=== PATIENT | male | born 1945 | race Caucasian/White ===

== ENCOUNTER 2017-02-24 08:09 | Outpatient (RCR) | payer MEDICARE ==
[~2017-02-24 08:09] MED LIST: ALLP300T PO; ASP81TEC PO; CA C1TAB26 PO; HYDR-3583 PO; LISI1TAB10 PO; LVT.112T PO; NIAC1CAP PO; PRAV80TA2 PO; RANI300T4 PO
[2017-02-28] MEDS ORDERED: MELO7.5T46 PO (13:24)
[2017-02-28] MEDS ORDERED: AMLO5TAB2 PO ×2 (13:24)
[2017-02-28] MEDS ORDERED: LISI40TA PO ×2 (13:24)
[2017-02-28] MEDS ORDERED: LEVO100T7 PO ×2 (13:24)
[2017-02-28] MEDS ORDERED: FEBU80TA PO ×2 (13:56)
[2017-03-09] MEDS ORDERED: OXYC-471 PO ×2 (19:09)
[2017-03-09] MEDS ORDERED: OXC10TCR PO ×2 (19:09)
--- NOTE | 2017-03-10 16:42 | OPERATIVE REPORT ---
DATE OF SERVICE: 03/01/2017 SURGEON: Dr. Brush. COLD FOOD PACKER: SAMUEL Graff. This is a medically necessary procedure. Assistance is necessary for retraction of vital neurovascular structures. Without an middle school assistant principal, the procedure would not be possible. PREOPERATIVE DIAGNOSIS: Pathologic left femoral shaft fracture. POSTOPERATIVE DIAGNOSIS: Pathological left femoral shaft fracture. PROCEDURE: Left intramedullary nail placement with biopsy. COMPLICATIONS: None. SPECIMENS SENT: Reamings from left femur. ANESTHESIA: General endotracheal tube anesthesia. HISTORY OF PRESENT ILLNESS: The patient is a very pleasant 72-year-old gentleman with a distant history of throat cancer and other diagnoses including hypertension and history of myocardial infarction. He presented with left femur deformity, pain and instability after he passively lifted his leg to get out of the vehicle and felt a pop. Imaging in [facility] demonstrated a transverse left femoral shaft fracture with lucencies around that fracture suggesting pathologic lesion. Subsequent workup included a CT scan of the femur and CT scan of the chest, abdomen and pelvis. These demonstrated lymphadenopathy in the mediastinum, as well as an isolated pathologic lesion in the femur with no other compromise of skeleton. In addition, bone scan demonstrated no other abnormal uptake. Options were discussed with the patient who did wish to proceed with surgical stabilization. It was discussed that biopsy would be obtained in attempt to diagnose the source of the tumor. He understood the risks and benefits. OPERATION: The patient was identified by name on wrist band in the preoperative holding area. The operative site was signed and consent was signed. SCDs were placed. Antibiotics were started in the operating theater with placement of general endotracheal anesthesia and transferred to the operating room table. His unaffected right lower extremity was abducted and externally rotated. His affected left lower extremity was placed in traction and slightly adducted. It was then prepped and draped in the usual sterile fashion. A formal timeout was conducted. We were able to get a good AP and lateral of the left femur. At this point, incision was made just proximal to the greater trochanter on the left side. A guidewire was then passed into the proximal femur via the piriformis fossa. I then reamed the outer cortex. I then placed a gavin into the femur and passed it down through the supracondylar line just above the knee. I measured the appropriate length of the nail. I reamed for that nail and I saved those reamings to sent to pathology in the attempt to diagnose the tumor. Once the ream was finished, I chose the appropriate size titanium nail and I passed it through the proximal fragment and into the distal fragment imaging with AP and lateral x-ray to ensure that I was in the appropriate location. Once the nail was in place, I did drill the outer cortex and placed a guidewire into the subcondylar bone of the left femoral head. I measured the appropriate length for the helical blade and placed the helical blade. I locked it with the nail to prevent back out. At this point I removed the guide apparatus and turned my attention to the distal lock where I used perfect sitka fluoroscopy technique to place a screw through the medial and lateral cortex of the femur and through the nail. Final AP and lateral x-ray demonstrated appropriate positioning of all the hardware. At this point, I thoroughly irrigated the wound and I closed those wounds with 0 Vicryl, followed by 2-0 Vicryl, followed by dmitriy for skin. I applied dressings and took the patient in the supine position to the PACU where he awoke without incident. He tolerated the procedure well. The plan at this time is to followup on the pathology. Medicine will be consulted, as well as oncology for further diagnosis and treatment. He will be placed on blood thinners for DVT prophylaxis. He will be weightbearing as tolerated on the left lower extremity. Job ID: [id number] DocumentID: [id number] Dictated Date: 03/10/2017 06:25:09 Dopster Date: 03/10/2017 16:42:00 Dictated By: FARHEEN BRUSH DO
== END 2017-03-08 15:32 | disposition home or self-care (01) ==
PROVIDERS: ATTEND Internal Medicine
DX: M54.16 Radiculopathy, lumbar region (principal)

== ENCOUNTER 2017-03-03 11:32 | Inpatient (IN) | payer MEDICARE ==
[~2017-03-03] VITALS: Ht 157.5 cm; Wt 76.7 kg
[~2017-03-03 11:32] MED LIST changes: +AMLO5TAB2 PO; +FEBU80TA PO; +LEVO100T7 PO; +LISI40TA PO; +MELO7.5T46 PO
[2017-03-03 13:00] VITALS: BP 99/62
[2017-03-03] MEDS ORDERED: HYDROmorphone (DILAUDID) 2 MG/ML VIAL IV PRN (14:00)
[2017-03-03] MEDS ORDERED: ONDANSETRON 4 MG/2 ML (SDV) Z0FRAN IV PRN (14:00)
[2017-03-03] MEDS ORDERED: CATHETER FLUSH 10 ML SYR IV PRN (14:00)
--- NOTE | 2017-03-03 14:15 | Physical Therapy Evaluation ---
PT Evaluation-General Medical Diagnosis Admission Date Mar 03, 2017 at 14:03 Medical Diagnosis: left femur fx Onset Date: Feb 28, 2017 Therapy Diagnosis Therapy Diagnosis: impaired mobility, ROM, strength, endurance Height/Weight Height (Feet): 5 Height (Inches): 2.00 Weight (Pounds): 167 Weight (Ounces): 0.0 Precautions Precautions/Isolations: Fall Prevention, Standard Precautions, Pressure Ulcer Weight Bear Status Weight Bearing Restriction: Weight Bearing/Tolerated Location Restriction: L LE Referral Physician: Lalo Reason for Referral: Evaluation/Treatment Medical History Pertinent Medical History: CAD, COPD, HTN, Hypothroidism, [place] Additional Medical History throat CA approx 12 yrs ago Current History Pathological fracture left hip. Post repair TFN; WBAT. Reviewed History: Yes Social History Home: Single Level Current Living Status: Other Family Entry Into Home: Ramp PT Steps Inside Home: 2 Patient lives with a sister and another roommate, he states he has 2 steps to get into his bedroom. Prior/Core FIM Prior Level of Function Functional [place] Measure 0=Not Assessed/NA 4=Minimal Assistance 1=Total Assistance 5=Supervision or Setup 2=Maximal Assistance 6=Modified [place] 3=Moderate Assistance 7=Complete [place] Bed Mobility: 6 Transfers (B,C,W/C) (FIM): 6 Gait: 6 Patient was using a standard walker to ambulate before going to the hospital. PT Evaluation-Current Subjective Patient sitting EOB pre tx, agrees to PT, will be taking him down to the rehab floor. Patient states he has 9/10 pain, nurse got him a pain pill. Pt/Family Goals to be independent at home Objective Patient Orientation: Normal For Age Attachments: Galaviz Catheter ROM/Strength ROM Lower Extremities right lower extremity WNL, left leg not tested due to recent surgery Strenght Lower Extremities NT due to recent surgery Integumentary/Posture Bladder Incontinence: Galaviz Cath Neuromuscular (Tone, Coordination, Reflexes) WNL Sensory Vision: Wears Glasses Hearing: Functional Sensation Right Lower Extremit: Intact Sensation Left Lower Extremity: Intact Sensation Lower Extremities Patient denies any numbness or tingling in left leg. Transfers Functional [place] Measure 0=Not Assessed/NA 4=Minimal Assistance 1=Total Assistance 5=Supervision or Setup 2=Maximal Assistance 6=Modified [place] 3=Moderate Assistance 7=Complete IndependenceIRFPAI Quality Coding Scale 6 Independent with activity with or without an assistive device 5 Patient requires set up or clean up by helper. Patient completes activity by themselves 4 Supervision or touching assist (CGA). [place] provide cues , steadying assist 3 The helper provides less than half the effort to complete the activity 2 The helper provides more than half the effort to complete the activity 1 Dependent. The helper does all the effort to complete an activity 7 Patient refused to complete or attempt activity 9 The patient did not perform the activity before the current illness or injury 88 Not attempted due to Medical conditions or safety concerns Transfers (B, C, W/C) (FIM): 4 Scootin Rollin Roll Left to Right (QC): 4 Supine to/from Sit: 4 Sit to/from Stand: 4 Sit to Lying (QC): 3 Lying to Sitting/Side of Bed(Q: 3 Sit to Stand (QC): 4 Car Transfer (QC): 88 Bed mobility SBA except for supine <-> sit which is min assist, transfers with CGA. Cues for safety and hand placement. Gait Does the Patient Walk?: Yes Mode of Locomotion: Walk Anticipated Mode of Locomotion: Walk Gait (FIM): 4 Walk 10 feet (QC): 4 Walk 50 ft with 2 Turns(QC): 4 Walk 150 ft (QC): 4 Walking 10ft/uneven surface-QC: 4 Distance: 200', 150' Gait Level of Assist: 4 Gait Persons Needed: 1 Gait Assistive Device: FWW Comments/Gait Description Patient ambulates slowly, antalgic, decreased knee flexion on the left and decreased stance time. Patient can ambulate 150-200' with a rolling walker with CGA including 50' with at least 2 turns of 90 degrees and 10' over an uneven surface. He is bearing some weight through his left leg now. Wheelchair Training Does the Pt Use a Wheelchair?: No Stairs Stairs (FIM): 2 #of Steps: 4 Level of Assist: 4 1 Step (curb) (QC): 4 4 Steps (QC): 4 12 Steps (QC): 88 Patient went up and down 4 steps using 2 handrails with CGA and cues for safety and foot placement. Balance Sitting Static: Normal Sitting Dynamic: Normal Standing Static: Good Standing Dynamic: Good Treatment supine exercises x 20 (AP, QS, GS, hip abd/add, SAQ, SLR), seated LAQ alternating for 5 min, NuStep for 15 min level 1 Assessment/Needs Patient has impaired mobility, strength, endurance, and ROM post left hip surgery. Patient did have less pain after treatment and with the pain meds he got it was 5/10 at the end of tx. Rehab Potential: Fair PT Short Term Goals Short Term Goals Time Frame: Mar 10, 2017 Transfers (B,C,W/C) (FIM): 5 Gait (FIM): 5 Gait Distance Comment: 250' Gait Level of Assist: 5 Gait Assistive Device: FWW PT Snf Goals Automotive Parts Manager Goals PT Automotive Parts Manager Goals Time Frame: March 24, 2017 Transfers (B,C,W/C) (FIM): 6 Sit to Lying (QC): 6 Lying-Sitting on Side/Bed(QC): 6 Sit to Stand (QC): 6 Rollin Roll Left to Right (QC): 6 Car Transfer (QC): 4 Gait (FIM): 6 Distance: 300' Walk 10 feet (QC): 6 Walk 10ft-Uneven Surface(QC): 6 Walk 50ft with 2 Turns (QC): 6 Walk 150 ft (QC): 6 Gait Level of Assist: 6 Gait Assistive Device: FWW Stairs (FIM): 5 # of Steps: 12 1 Step (curb) (QC): 4 4 Steps (QC): 4 12 Steps (QC): 4 Stairs Level Of Assist: 5 Picking up an Object (QC): 88 PT Plan Problem List Problem List: Activity Tolerance, Functional Strength, Safety, Balance, Gait, Transfer, Bed Mobility, ROM Treatment/Plan Treatment Plan: Continue Plan of Care Treatment Plan: Bed Mobility, Education, Functional Activity David, Functional Strength, Group Therapy, Gait, Safety, Therapeutic Exercise, Transfers Treatment Duration: March 24, 2017 # of days/week 5-6 Visits Per Week: 10-11 Minutes/Day (M-F): 60-90 Minutes/Day (Sat/Trent): 15-30 Pt/Family Agrees w/Plan: Yes Safety Risks/Education Patient Education: Gait Training, Transfer Techniques, Steps, Correct Positioning, Safety Issues Teaching Recipient: Patient Teaching Methods: Demonstration, Discussion Response to Teaching: Reinforcement Needed Discharge Recommendations Plan Patient will perform bed mobility and transfer training, balance and endurance training, functional strengthening, gait training, stair training, and education , to improve functional mobility and independence at home. Therapy D/C Recommendations: Home w/ Family Support Equpiment Recommendations-D/C: Front Wheeled Walker, Shower Chair Time/GCodes Time In: 1230 Time Out: 1400 Total Billed Treatment Time: 90 Total Billed Treatment 1 visit EVM 15' EX 30 min GT 30 min FA 15 min LUMA HENDRIX PT Mar 03, 2017 14:15
--- NOTE | 2017-03-03 15:22 | Occupational Ther Daily Note ---
OT Current Status-Daily Note Subjective Pt alert, sitting EOB. Sister present in room. Pt agreed to therapy. No c/o pain. Mental Status/Objective Patient Orientation: Person, Place, Time, Situation Functional [place] Measure 0=Not Assessed/NA 4=Minimal Assistance 1=Total Assistance 5=Supervision or Setup 2=Maximal Assistance 6=Modified [place] 3=Moderate Assistance 7=Complete [place] Attachments: IV ADL-Treatment Functional [place] Measure 0=Not Assessed/NA 4=Minimal Assistance 1=Total Assistance 5=Supervision or Setup 2=Maximal Assistance 6=Modified [place] 3=Moderate Assistance 7=Complete IndependenceIRFPAI Quality Coding Scale 6 Independent with activity with or without an assistive device 5 Patient requires set up or clean up by helper. Patient completes activity by themselves 4 Supervision or touching assist (CGA). [place] provide cues , steadying assist 3 The helper provides less than half the effort to complete the activity 2 The helper provides more than half the effort to complete the activity 1 Dependent. The helper does all the effort to complete an activity 7 Patient refused to complete or attempt activity 9 The patient did not perform the activity before the current illness or injury 88 Not attempted due to Medical conditions or safety concerns Grooming (FIM): 5 (Pt standing at sink with FWW completed oral care with SBA. Pt's dentures are at his home so he cleansed his mouth.) Oral Hygiene (QC): 4 (Pt standing at sink with FWW completed oral care. Pt's dentures are at his home so he cleansed his mouth.) Bathing (FIM): 4 (Using shower bench, grabbar and hand held shower pt able to bathe self with min A. Pt unable to reach feet. Pt was able to bathe all other body parts.) Bathing Location: L Arm, R Arm, L Upper Leg, R Upper Leg, Chest, Abdomen, Buttocks, Perineal Area Shower/Bathe Self (QC): 4 (Using shower bench, grabbar and hand held shower pt able to bathe self with min A. Pt unable to reach feet. Pt was able to bathe all other body parts.) Upper Body (FIM): 5 (After set up, pt is able to complete upper body dressing.) Upper Body Dressing (QC): 4 (After set up, pt is able to complete upper body dressing.) Lower Body Dressing (FIM): 2 (After set up, pt unable to reach feet to don/ doff lower body. Pt is able to pull up pants and hike over hips with SBA.) Lower Body Dressing (QC): 2 (After set up, pt unable to reach feet to don/doff lower body. Pt is able to pull up pants and hike over hips with SBA.) On/Off Footwear (QC): 2 (Pt unable to don/doff footwear.) Transfers (B, C, W/C) (FIM): 4 (CGA for transfers using FWW.) Toilet/Commode Transfer (FIM): 4 (CGA for transfers using FWW and grabbars.) Toilet Transfer (QC): 4 (CGA for transfers using FWW) Shower Transfer(FIM): 4 (CGA for transfers using FWW, shower bench and grabbars.) Pt will required AE for lower body dressing. Pt was educated on using business instructor to don pants and sock aide to don socks. Pt demonstrated understanding of AE. Pt required mod A to lift LE into bed. After therapy, pt lying in bed with call light/phone in reach. All needs met in room. OT Short Term Goals Short Term Goals Transfers (B,C,W/C) (FIM): 5 1=Demonstrate adherence to instructed precautions during ADL tasks. 2=Patient will verbalize/demonstrate understanding of assistive devices/ modifications for ADL. 3=Patient will improve strength/tolerance for activity to enable patient to perform ADL's. OT Visual Effects Editor Goals Visual Effects Editor Goals 1=Demonstrate adherence to instructed precautions during ADL tasks. 2=Patient will verbalize/demonstrate understanding of assistive devices/ modifications for ADL. 3=Patient will improve strength/tolerance for activity to enable patient to perform ADL's. OT Education/Plan Discharge Recommendations Plan/Recommendations: Continue POC Treatment Plan/Plan of Care Patient would benefit from OT for education, treatment and training to promote independence in ADL's, mobility, safety and/or upper extremity function for ADL' s. Treatment Duration: March 24, 2017 Visits Per Week: 10-12 Rehab Potential: Fair Time/GCodes Start Time: 14:25 Stop Time: 15:15 Total Time Billed (hr/min): 50 Billed Treatment Time 1 visit-ADL 3 (50 min) CHRISTINA CASON Mar 03, 2017 15:22
--- NOTE | 2017-03-03 15:24 | Occupational Therapy Eval ---
OT Evaluation-General/PLF Medical Diagnosis Admission Date Mar 03, 2017 at 14:03 Medical Diagnosis: left femur fx Onset Date: Feb 28, 2017 Therapy Diagnosis Therapy Diagnosis: decreased self care Height/Weight Height (Feet): 5 Height (Inches): 2.00 Weight (Pounds): 167 Weight (Ounces): 0.0 Precautions Precautions/Isolations: Fall Prevention, Standard Precautions, Pressure Ulcer Weight Bear Status Weight Bearing Restriction: Weight Bearing/Tolerated Location Restriction: L LE Referral Physician: Lalo Medical History Pertinent Medical History: CAD, COPD, HTN, Hypothroidism, [place] Additional Medical History throat cancer Current History pathologic left femur fracture, now s/p TFN Social History Home: Single Level Current Living Status: Other Family Entry Into Home: Ramp Steps Inside Home: 2 (2 steps to bedroom) ADL-Prior Level of Function ADL PLOF Comments Pt reports being independent prior to admission. Had been using standard walker PRN for last few weeks secondary to left LE pain. 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 Pt reports 5/10 pain in left LE. Mental Status/Objective Patient Orientation: Person, Place, Time, Situation Current Glasses/Contacts: Yes Hearing Aids: No Dentures/Partials: No Hand Dominance: Right Upper Extremity ROM Grossly WFL Upper Extremity Coordination Intact Upper Extremity Sensation Intact per pt report Upper Extremity Strength Grossly WFL ADL-Treatment ADL-Current Pt supine to sit with minimal assistance for left LE. Pt participated in UE assessment while seated EOB with good balance. Pt required assist to don bilateral shoes. Sit to stand with CGA. Gait to restroom with FWW. Pt demonstrated ability to perform toilet transfer with minimal assistance using grab bars; skilled cues for safety. Return to EOB using FWW. Education provided regarding role of OT, rehab expectations, and plan of care. Pt states understanding and is in agreement. Care transferred to [facility] for continued treatment. Functional [place] Measure 0=Not Assessed/NA 4=Minimal Assistance 1=Total Assistance 5=Supervision or Setup 2=Maximal Assistance 6=Modified [place] 3=Moderate Assistance 7=Complete IndependenceIRFPAI Quality Coding Scale 6 Independent with activity with or without an assistive device 5 Patient requires set up or clean up by helper. Patient completes activity by themselves 4 Supervision or touching assist (CGA). [place] provide cues , steadying assist 3 The helper provides less than half the effort to complete the activity 2 The helper provides more than half the effort to complete the activity 1 Dependent. The helper does all the effort to complete an activity 7 Patient refused to complete or attempt activity 9 The patient did not perform the activity before the current illness or injury 88 Not attempted due to Medical conditions or safety concerns Toilet/Commode Transfer (FIM): 4 Toilet Transfer (QC): 3 Education OT Patient Education: Rehab process Teaching Recipient: Patient Teaching Methods: Discussion Response to Teaching: Verbalize Understanding OT Short Term Goals Short Term Goals Time Frame: Mar 10, 2017 Bathing(FIM): 5 Lower Body Dressing(FIM): 5 Toileting(FIM): 5 Toilet/Commode Transfer(FIM): 5 Additional Short Term Goals: 1-Demonstrate ADL Tasks, 2-Verbalize Understanding , 3-ImproveStrength/David 1=Demonstrate adherence to instructed precautions during ADL tasks. 2=Patient will verbalize/demonstrate understanding of assistive devices/ modifications for ADL. 3=Patient will improve strength/tolerance for activity to enable patient to perform ADL's. OT Retirement Goals Retirement Goals Time Frame: March 24, 2017 Eating (FIM): 6 Eating (QC): 6 Groomin Oral Hygiene (QC): 6 Bathing(FIM): 6 Shower/Bathe Self (QC): 6 Upper Body Dressing(FIM): 6 Upper Body Dressing (QC): 6 Lower Body Dressing(FIM): 6 Lower Body Dressing (QC): 6 On/Off Footwear (QC): 6 Toileting(FIM): 6 Toileting Hygiene (QC): 6 Toilet/Commode Transfer(FIM): 6 Toilet/Commode Transfer (QC): 6 Shower Transfer(FIM): 6 Additional Goals: 1-Demonstrate ADL Tasks, 2-Verbalize Understanding, 3- ImproveStrength/David 1=Demonstrate adherence to instructed precautions during ADL tasks. 2=Patient will verbalize/demonstrate understanding of assistive devices/ modifications for ADL. 3=Patient will improve strength/tolerance for activity to enable patient to perform ADL's. OT Education/Plan Problem List/Assessment Assessment: Decreased Activ Tolerance, Dependent Transfers, Impaired Self-Care Skills Pt admitted secondary to left femur fracture s/p TFN. Pt demonstrates decreased mobility and ADL functioning. Pt to benefit from skilled OT intervention for ADL training, transfers, strengthening, adaptive equipment education, and home safety education to maximize level of function and allow safe return home. Discharge Recommendations Plan/Recommendations: Continue POC Treatment Plan/Plan of Care Treatment,Training & Education: Yes Patient would benefit from OT for education, treatment and training to promote independence in ADL's, mobility, safety and/or upper extremity function for ADL' s. Plan of Care: ADL Retraining, Functional Mobility, Group Exercise/Act as Ind, UE Funct Exercise/Act Treatment Duration: March 24, 2017 # of days/week 5-6 Visits Per Week: 10-12 Minutes/Day (M-F): 60-90 Minutes/Day (Sat/Trent): PRN Agreement: Yes Rehab Potential: Fair Time/GCodes Start Time: 14:00 Stop Time: 14:25 Total Time Billed (hr/min): 25 Billed Treatment Time 1 visit, EVM(15minutes), ADL(10minutes) CHRIS MEADE OT Mar 03, 2017 15:24
--- NOTE | 2017-03-03 15:36 | ST Cognitive Linguistic Eval ---
Speech Evaluation-General Medical Diagnosis left femur fx Onset Date: Feb 28, 2017 Therapy Diagnosis Therapy Diagnosis: Cognitive Linguistic Skills WFL Precautions Precautions/Isolations: Fall Prevention, Standard Precautions, Pressure Ulcer Referral Referring Physician: Dr. Clem Bucio Reason for Referral: Evaluation/Treatment Cognitive Linguistic Screen Medical History Pertinent Medical History: CAD, COPD, HTN, Hypothroidism, [place] Reviewed History: Yes Social History Current Living Status: Other Family Speech PLF-Current Status Prior Level of Function The patient denied cognitive, speech, or language deficits prior to his recent admission. Subjective The patient was recently admitted to [facility] following a femur fracture. The patient greeted the clinician appropriately and agreed to participate in the cognitive evaluation on this date. Language Eval: Auditory Comprehends Simple Yes/No Ques: Functional Indent/Objects Multiple [place]: Functional Ident/Pics in Multiple [place]: Functional Follows 1-Step Commands: Functional Follows Complex Directions: Functional Follows General Conversations: Functional Language Eval: Verbal Language Completes Spontaneous Greeting: Functional Produces Auto, Serial Info: Functional Imitates Simple Words/Phrases: Functional Word Finding: Functional Requests Basic Needs: Functional States Basic Personal Info: Functional Expresses Complex Ideas: Functional Cognitive Patient Orientation The patient was oriented to self, location, month, date, and year (independently ). Objective Cognitive Domain Attention: WNL Memory: WNL Problem Solving: Functional Objective Impression The patient demonstrated cognitive linguistic skills within functional limits and appropriate for completion of ADL's. Communication/Social Cognition Comprehension: 5 Expression: 6 Social Interaction: 6 Problem Solvin Memory: 5 Speech Patient Assess Expression of Ideas/Wants: Expression (4) Understanding [place] Content: Understands (4) Brief Interview-Mental Status: Yes Repetition of Three Words: Three (3) Temporal Orientation: Year: Correct (3) Temporal Orientation: Month: Accurate within 5 days(2) Temporal Orientation: Day: Correct (1) Recall : Wear to say "Sock": Yes, no cue required (2) Recall : Color: Yes, no cue required (2) Recall : Bed: No, could not recall (0) Speech-Plan Treatment Plan Speech Therapy Treatment Plan: Discontinue ST Evaluation, only. Rehab Potential: Fair Safety Risks/Education Teaching Recipient: Patient, Significant Other Teaching Methods: Discussion Response to Teaching: Verbalize Understanding Education Topics Provided: Results, Recommendations, Plan of Care Time Speech Therapy Time In: 15:15 Speech Therapy Time Out: 15:30 Total Billed Time: 15 Billed Treatment Time 1, ADELIA MESSINA Mar 03, 2017 15:36
[2017-03-03 18:34] VITALS: BP 117/66
--- NOTE | 2017-03-03 20:21 | CONSULTATION REPORT ---
DATE OF SERVICE: 03/03/2017 MEDICAL ONCOLOGY CONSULTATION REFERRING/PRIMARY PHYSICIAN: Hamzah Vizcaino MD. IMPRESSION: 1. A 72-year-old male admitted to the hospital with pathologic fracture of the right femur, status post internal fixation. 2. History of squamous cell carcinoma of the larynx, T3 N0 M0 status post radiation therapy along with concurrent weekly cisplatin chemotherapy completing all treatment in 09/2005. 3. History of tobacco use in the past, quit 12 years ago. RECOMMENDATIONS: 1. I will await the final pathology report from the bone biopsies done at the time of internal fixation of the right femur. 2. If the primary site cannot be ascertained with the bone biopsy he may need repeat biopsy of right axillary lymph node either by CT-guided needle biopsy or an excisional biopsy. 3. Continue rehabilitation as you are doing and discharge home when stable. 4. If he needs staging PET CT scan we will schedule this on an outpatient basis in the next 2 to 3 weeks. 5. I would like to see him back at the cancer center after the final pathology report and the staging PET CT scan to review the results and discuss about treatment options. BRIEF HISTORY OF PRESENT ILLNESS: The patient is a 72-year-old male who suffered a fracture of his right femur while getting out of his car. He gives history or right lower extremity and right hip discomfort for the last 2 months. He denied any other trauma. He was brought to the emergency room and was noted to have a displaced fracture of the mid shaft of right femur which was felt to be pathologic. He was evaluated by orthopedic surgery and taken to surgery. He had internal fixation done and biopsies. The patient is recovering from the surgery and is starting rehabilitation today. He has remote history of squamous cell carcinoma of his larynx and had completed all treatment approximately 11 to 12 years ago with no evidence of disease until now. Medical oncology consultation was requested for further workup and recommendations. PAST MEDICAL HISTORY: Significant for hypertension for more than 25 years, history of IL in the past with an angioplasty in 1990, history of squamous cell carcinoma of the larynx treated with combined chemotherapy and radiation in 2004, hypothyroidism following this and on replacement. PAST SURGICAL HISTORY: Tracheostomy at the time of diagnosis of his laryngeal cancer, angioplasty in 1990 and recent right femur internal fixation. SOCIAL HISTORY: He is and lives with his sister in [place], [place]. He has a son who is in his early 40s now who lives close by. He has approximately [id number] history of tobacco use but quit 12 years ago at the time of diagnosis of his laryngeal cancer. No significant alcohol or other recreational drug use. Previously he has worked as a welder tool and die for 40 years and has exposure to the building gases and fumes. 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 FAMILY HISTORY: Significant for his mother who was diagnosed with acute leukemia while in her early 50s and a maternal aunt who was diagnosed with ovarian cancer while in her 40s. PHYSICAL EXAMINATION: GENERAL APPEARANCE: Today shows an elderly male, well-developed and well-nourished, awake and oriented. He is mild discomfort from the postoperative pain. VITAL SIGNS: His temperature was 96.6, pulse rate 81, respirations 16, blood pressure 99/62 with a pulse oximetry showing 99% saturation on 2 liters of oxygen by nasal cannula. 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 Extraocular muscles intact. Conjunctivae pink. Oral mucosa is slightly dry. NECK: Showed previous tracheostomy scar that is healed, post radiation surgical changes of the neck noted. Mild submental lymphedema which has been a chronic problem following his chemo and radiation. LYMPH NODES: The patient had an approximately 1.5 cm lymph node palpable in the right axilla and a smaller lymph node palpable in the left axilla also. CHEST AND LUNGS: Symmetrical. The lungs are fairly clear to auscultation without wheezes or rales. CARDIOVASCULAR: Regular in rate and rhythm. No murmurs or gallops heard. ABDOMEN: Soft and nontender with no hepatosplenomegaly or other masses palpable. EXTREMITIES: Showed right lower extremity with postoperative changes. No edema noted. NEUROLOGIC: Showed no focal motor deficits. Range of movement of right lower extremity is somewhat limited because of postoperative pain. LABORATORY DATA: CBC done yesterday showed WBC 6.3, hemoglobin 13.4, platelet count 229,000. Chemistry panel done yesterday showed normal electrolytes except potassium level of 5.5. BUN was 21 and creatinine 1.27 with GFR of 56 ml/minute. Total bilirubin was 1.1. AST 54. Albumin 2.9 with the rest of the liver function studies normal. IMAGING STUDIES: 1. CT scan of the chest, abdomen and pelvis done on 02/28/2017 showed 2 small pulmonary nodules in the right upper lobe measuring 10 mm and 8 mm respectively with the remainder of the lungs clear. No effusion noted. A vagus node was enlarged at 2.3 cm x 2.3 cm. AP window lymph node was mildly enlarged at 12 mm. A 2 cm x 3 cm AP window lymph node was noted. A 1.2 cm X 2.4 cm lymph node in the azygoesophageal recess noted. Bilateral axillary lymphadenopathy with the largest on the left side measuring 2.5 cm x 3.[address] scan of the abdomen and pelvis showed the liver, spleen and adrenals to be normal. A 2 cm low density lesion on the left kidney which was likely a cyst. A 1 cm low density lesion on the right kidney which is likely a cyst. Mesenteric and retroperitoneal lymphadenopathy with 2.2 x 2.7 lymph node paraaortic region at the level of the renal vessels. Numerous smaller lymph nodes in the paraaortic region. No ascites is noted. 2. Whole body bone scan done on 02/28/2017 showed abnormal uptake associated with a fracture on the left femur. Minimal increased activity in the intertrochanteric/subtrochanteric region on the right. 3. CT scan of the left lower extremity done on 02/28/2017 showed a lytic mid-shaft lesion of the left femur with associated pathologic fracture with displacement. 4. CT scan of the right lower extremity showed mild degenerative changes with no suspicious masses in the subtrochanteric region. Thank you for allowing me to participate in this patient's care. I will follow the patient with you. Job ID: [id number] DocumentID: [id number] Dictated Date: 03/03/2017 18:19:18 Windows Server Administrator Date: 03/03/2017 20:21:02 Dictated By: GIGI ORDOÑEZ MD [facility]
[2017-03-03] MEDS: FAMOTIDINE 20 MG (PEPCID) TABLET PO SCH (21:14)
[2017-03-03] MEDS: ATORVASTATIN 40 MG (LIPITOR) TABLET PO SCH (21:14)
[2017-03-03] MEDS: oxyCODONE/APAP 5/325MG (PERCOCET 5) TABLET PO PRN (21:14)
[2017-03-04 05:00] VITALS: BP 143/76
[2017-03-04] MEDS: LEVOTHYROXINE 100 MCG (LEVOTHROID) TAB PO SCH (05:58)
[2017-03-04] MEDS: oxyCODONE/APAP 5/325MG (PERCOCET 5) TABLET PO PRN ×2 (05:59→10:41)
[2017-03-04] MEDS ORDERED: ASPIRIN E.C. 81 MG (ECOTRIN) TAB PO SCH (09:00)
--- NOTE | 2017-03-04 09:02 | Physical Therapy Daily Note ---
PT Daily Note-Current Subjective Patient in bed pre tx, agrees to PT, has 5/10 pain in left leg. Appearance Patient in recliner post tx, has OT right after PT, has nurse call, phone, tray , all needs met. Mental Status Patient Orientation: Normal For Age Attachments: Galaviz Catheter Transfers Functional [place] Measure 0=Not Assessed/NA 4=Minimal Assistance 1=Total Assistance 5=Supervision or Setup 2=Maximal Assistance 6=Modified [place] 3=Moderate Assistance 7=Complete IndependenceIRFPAI Quality Coding Scale 6 Independent with activity with or without an assistive device 5 Patient requires set up or clean up by helper. Patient completes activity by themselves 4 Supervision or touching assist (CGA). [place] provide cues , steadying assist 3 The helper provides less than half the effort to complete the activity 2 The helper provides more than half the effort to complete the activity 1 Dependent. The helper does all the effort to complete an activity 7 Patient refused to complete or attempt activity 9 The patient did not perform the activity before the current illness or injury 88 Not attempted due to Medical conditions or safety concerns Transfers (B, C, W/C) (FIM): 4 Scootin Rollin Supine to/from Sit: 4 Sit to/from Stand: 5 Patient needs min assist getting left leg into and out of bed. Gait Training Gait (FIM): 5 Distance: 150'x2 Gait Level of Assist: 5 Gait Persons Needed: 1 Gait Assistive Device: FWW Slow, antalgic, patient tends to not bear weight on his left leg and will try to swing both legs through at the same time. Exercises Standing: Hip Abduction, Hamstring curls, Heel/toe raises, Marching, Mini squats Standing Reps: 20 step-ups x 10 each side NuStep Minutes: 15 NuStep Workload: 3 Treatments bed mobility and transfers, ambulation, functional strengthening Assessment Current Status: Fair Progress Improved transfers and ambulation. Still fatigues quickly and needs frequent rest breaks. PT Short Term Goals Short Term Goals Time Frame: Mar 10, 2017 Gait (FIM): 5 Gait Distance Comment: 250' Gait Level of Assist: 5 Gait Assistive Device: FWW PT Group Account Director Goals Skilled Nursing Goals PT Group Account Director Goals Time Frame: March 24, 2017 Transfers (B,C,W/C) (FIM): 6 Sit to Lying (QC): 6 Lying-Sitting on Side/Bed(QC): 6 Sit to Stand (QC): 6 Rollin Roll Left to Right (QC): 6 Car Transfer (QC): 4 Gait (FIM): 6 Distance: 300' Walk 10 feet (QC): 6 Walk 10ft-Uneven Surface(QC): 6 Walk 50ft with 2 Turns (QC): 6 Walk 150 ft (QC): 6 Gait Level of Assist: 6 Gait Assistive Device: FWW Stairs (FIM): 5 # of Steps: 12 1 Step (curb) (QC): 4 4 Steps (QC): 4 12 Steps (QC): 4 Stairs Level Of Assist: 5 Picking up an Object (QC): 88 PT Plan Problem List Problem List: Activity Tolerance, Functional Strength, Safety, Balance, Gait, Transfer, Bed Mobility, ROM Treatment/Plan Treatment Plan: Continue Plan of Care Treatment Plan: Bed Mobility, Education, Functional Activity David, Functional Strength, Group Therapy, Gait, Safety, Therapeutic Exercise, Transfers Treatment Duration: March 24, 2017 Visits Per Week: 10-11 Minutes/Day (M-F): 60-90 Minutes/Day (Sat/Trent): 15-30 Safety Risks/Education Patient Education: Gait Training, Transfer Techniques, Correct Positioning, Safety Issues Teaching Recipient: Patient Teaching Methods: Demonstration, Discussion Response to Teaching: Reinforcement Needed Time/GCodes Time In: 800 Time Out: 900 Total Billed Treatment Time: 60 Total Billed Treatment 1 visit EX 30 min GT 30 min LUMA HENDRIX PT Mar 04, 2017 09:02
[2017-03-04 09:06] VITALS: BP 99/61
[2017-03-04] MEDS: BISACODYL 5 MG (DULCOLAX) TABLET PO SCH (09:06)
[2017-03-04] MEDS: amLODIPine 5 MG (NORVASC) TAB PO SCH (09:17)
[2017-03-04] MEDS: lisINopril 20 MG (ZESTRIL) TAB PO SCH (09:17)
[2017-03-04] MEDS: ASPIRIN 81 MG CHEW (CHILDREN'S ASA) PO SCH (10:41)
--- NOTE | 2017-03-04 11:59 | Occupational Ther Daily Note ---
OT Current Status-Daily Note Subjective Pt sitting in chair, agrees to treatment. Pt reports 5/10 pain in left LE. Mental Status/Objective Functional [place] Measure 0=Not Assessed/NA 4=Minimal Assistance 1=Total Assistance 5=Supervision or Setup 2=Maximal Assistance 6=Modified [place] 3=Moderate Assistance 7=Complete [place] ADL-Treatment Pt doffed/donned shirt with set up. Reviewed use of adaptive equipment for LE dressing. Pt used dressing stick to doff shoes, socks and pants. Pt used parachute cushion installer to start pants over feet. Assist to thread bautista through pant leg. Stood with CGA for pant hike. Pt donned socks with SBA using sock aid. Minimal assistance required to don shoes. Pt stood at sink to shave and complete oral care with SBA. Occasional rest breaks during ADL activity. Functional [place] Measure 0=Not Assessed/NA 4=Minimal Assistance 1=Total Assistance 5=Supervision or Setup 2=Maximal Assistance 6=Modified [place] 3=Moderate Assistance 7=Complete IndependenceIRFPAI Quality Coding Scale 6 Independent with activity with or without an assistive device 5 Patient requires set up or clean up by helper. Patient completes activity by themselves 4 Supervision or touching assist (CGA). [place] provide cues , steadying assist 3 The helper provides less than half the effort to complete the activity 2 The helper provides more than half the effort to complete the activity 1 Dependent. The helper does all the effort to complete an activity 7 Patient refused to complete or attempt activity 9 The patient did not perform the activity before the current illness or injury 88 Not attempted due to Medical conditions or safety concerns Grooming (FIM): 5 Oral Hygiene (QC): 5 Upper Body (FIM): 5 Upper Body Dressing (QC): 5 Lower Body Dressing (FIM): 4 Lower Body Dressing (QC): 3 Other Treatment Gait to therapy gym with FWW. Pt performed bilateral UE exercises to increase strength needed for ADLs and transfers. Pt performed shoulder flexion, abduction , horizontal abduction, biceps curls, and triceps extension exercises x20 reps with rest breaks between exercises. Pt returned to room, transferred sit to supine with minimal assistance. Pt in bed with needs met after session. OT Short Term Goals Short Term Goals Time Frame: Mar 10, 2017 Bathing(FIM): 5 Lower Body Dressing(FIM): 5 Toileting(FIM): 5 Toilet/Commode Transfer(FIM): 5 Additional Short Term Goals: 1-Demonstrate ADL Tasks, 2-Verbalize Understanding , 3-ImproveStrength/David 1=Demonstrate adherence to instructed precautions during ADL tasks. 2=Patient will verbalize/demonstrate understanding of assistive devices/ modifications for ADL. 3=Patient will improve strength/tolerance for activity to enable patient to perform ADL's. OT Fci Goals Fci Goals Time Frame: March 24, 2017 Eating (FIM): 6 Eating (QC): 6 Groomin Oral Hygiene (QC): 6 Bathing(FIM): 6 Shower/Bathe Self (QC): 6 Upper Body Dressing(FIM): 6 Upper Body Dressing (QC): 6 Lower Body Dressing(FIM): 6 Lower Body Dressing (QC): 6 On/Off Footwear (QC): 6 Toileting(FIM): 6 Toileting Hygiene (QC): 6 Toilet/Commode Transfer(FIM): 6 Toilet/Commode Transfer (QC): 6 Shower Transfer(FIM): 6 Additional Goals: 1-Demonstrate ADL Tasks, 2-Verbalize Understanding, 3- ImproveStrength/David 1=Demonstrate adherence to instructed precautions during ADL tasks. 2=Patient will verbalize/demonstrate understanding of assistive devices/ modifications for ADL. 3=Patient will improve strength/tolerance for activity to enable patient to perform ADL's. OT Education/Plan Problem List/Assessment Pt admitted secondary to left femur fracture s/p TFN. Pt demonstrates decreased mobility and ADL functioning. Pt to benefit from skilled OT intervention for ADL training, transfers, strengthening, adaptive equipment education, and home safety education to maximize level of function and allow safe return home. Discharge Recommendations Plan/Recommendations: Continue POC Treatment Plan/Plan of Care Patient would benefit from OT for education, treatment and training to promote independence in ADL's, mobility, safety and/or upper extremity function for ADL' s. Plan of Care: ADL Retraining, Functional Mobility, Group Exercise/Act as Ind, UE Funct Exercise/Act Treatment Duration: March 24, 2017 Visits Per Week: 10-12 Minutes/Day (M-F): 60-90 Minutes/Day (Sat/Trent): PRN Agreement: Yes Rehab Potential: Fair Time/GCodes Start Time: 09:00 Stop Time: 10:00 Total Time Billed (hr/min): 60 Billed Treatment Time 1 visit, ADLx3(40minutes), EX(15minutes) CHRIS MEADE OT Mar 04, 2017 11:59
--- NOTE | 2017-03-04 12:24 | History & Physical-Hospitalist ---
HPI History of Present Illness: HPI/Chief Complaint Mr. Ragsdale is a 72-year-old white male who suffered a pathologic left femur fracture and is status post ORIF left femur. He is being admitted to acute rehabilitation to continue physical therapy with expectations of returning to prior level of functioning and independent living at home. He has a past history of squamous cell carcinoma of the larynx diagnosed in 2004 for she finished course of radiation therapy and cisplatinum -based chemotherapy per Dr. Bush. We're still waiting on pathology report. CT scanning of the chest abdomen and pelvis did reveal multiple lymph nodes in the chest and abdomen pain particularly in the periaortic chain.he has bilateral pathologic axillary adenopathy as well that would be most easily accessible if further tissue is needed or diagnostic or therapeutic purposes. Bone scanning predominantly distal revealed the left femur lesion there was mild uptake in the right hip at a level more consistent with degenerative disease and metastatic disease. his postoperative course is revealed no complication thus far. He does have a past history of coronary disease and hypertension with stage III chronic renal disease that is been stable thus far. Date Seen 03/03/17 Attending Physician Krishna May MD PCP Debbie Vizcaino MD Referring Physician Date of Admission Mar 03, 2017 at 14:03 Home Medications & Allergies Home Medications Reviewed patient Home Medication Reconciliation Form Allergies Allergies Coded Allergies No Known Drug Allergies (Unverified02/28/17) Past Rhnimby-Wtrcdi-Tfmase Hx Patient Social History Alcohol Use: Denies Use Recreational Drug Use: No Smoking Status: Former Smoker Type Used: Cigarettes Physical Abuse Screen: No Sexual Abuse: No Recent Foreign Travel: No Contact w/other who traveled: No Recent Hopitalizations: No Recent Infectious Disease Expo: No Seasonal Allergies Seasonal Allergies: No Surgeries HX Surgeries: Yes (TRACH) Surgeries: Cardiac Respiratory Hx Respiratory Disorders: Yes (HX TRACH, POST THROAT CANCER) Cardiovascular Hx Cardiovascular Disorders: Yes (ANGIOPLASTY 1990) Cardiac Disorders: Coronary Artery Disease, Heart Attack, Hypertension Neurological Hx Neurological Disorders: No Reproductive System Hx Reproductive Disorders: No Sexually Transmitted Disease: No HIV/AIDS: No Genitourinary Hx Genitourinary Disorders: No Gastrointestinal Hx Gastrointestinal Disorders: No Gastrointestinal Disorders: Gastroesophageal Reflux Musculoskeletal Hx Musculoskeletal Disorders: Yes (NECK FROM RADIATION) Musculoskeletal Disorders: Fractures Endocrine Hx Endocrine Disorders: Yes Endocrine Disorders: Hypothyroidsim HEENT HX ENT Disorders: Yes (TRACHEOCUTANEOUS FISTULA) Loss of Vision: Denies Hearing Impairment: Denies Cancer Hx Cancer: Yes (throat) Psychosocial Hx Psychiatric Problems: No Blood Transfusions Hx Blood Disorders: No Family Medical History Family Hx: Cardiovascular disease 19 FATHER (40 at 40 [place]) G8 SISTER Diabetes mellitus G8 SISTER Hypercholesterolemia G8 SISTER Hypertension 19 FATHER G8 SISTER Kidney disease Myocardial infarction 19 FATHER (40) Review of Systems Respiratory: no symptoms reported, No cough, No dyspnea on exertion, No hemoptysis, No orthopnea, No phlegm, No short of breath, No stridor, No wheezing Cardiovascular: no symptoms reported, No see HPI, No chest pain, No edema, Hx of Intervention, No palpitations, No syncope, vascular heart diseas, other Physical Exam Physical Exam Vital Signs Vital Sign - Last 12Hours 03/03/17 03/03/17 03/03/17 13:00 14:06 20:30 Temp 96.6 Pulse 81 Resp 16 B/P (MAP) 99/62 Pulse Ox 93 O2 Delivery Room Air O2 Flow Rate 2.00 Capillary Refill : Less Than 3 Seconds General Appearance: No Apparent Distress, Anxious Respiratory: Chest Non Tender, Lungs Clear, Normal Breath Sounds, No Accessory Muscle Use, No Respiratory Distress Cardiovascular: Regular Rate, Rhythm, No Edema, No Gallop, No JVD, Normal Peripheral Pulses, Other (soft 1 to 2/6 systolic ejection murmur heard best left lower sternal border there is no evidence for pulsus parvus or tardus.) Gastrointestinal: Normal Bowel Sounds, No Organomegaly, No Pulsatile Mass, Non Tender, Soft Extremity: Other (mild left thigh swelling no tibial or pedal edema is noted.) Lymphatic: Other (bilateral nontender axillary nodes are noted.) Assessment/Plan Admission Diagnosis 1. Status post left femoral pathologic fracture requiring left ORIF. Continue PT and OT 2. History of hypertension and hypertensive medicine had to be held due to relative hypotension with systolic pressure in the upper 90s this morning. Will DC amlodipine and decrease lisinopril to 20 mg daily. Continue to hold for systolic pressures less than 100. 3. History of coronary artery disease, clinically stable. Will DC telemetry. 4. Will DC Galaviz catheter. 5. Widely metastatic disease histopathology report pending from above ORIF. Clinical Quality Measures DVT/VTE Risk/Contraindication: Risk Factor Score Per Nursin RFS Level Per Nursing on Admit: 4+=Very High DEBBIE VIZCAINO MD Mar 04, 2017 12:24
--- NOTE | 2017-03-04 12:38 | Progress Note-Hospitalist ---
Subjective HPI/CC On Admission Mr. Ragsdale is a 72-year-old white male who suffered a pathologic left femur fracture and is status post ORIF left femur. He is being admitted to acute rehabilitation to continue physical therapy with expectations of returning to prior level of functioning and independent living at home. He has a past history of squamous cell carcinoma of the larynx diagnosed in 2004 for she finished course of radiation therapy and cisplatinum -based chemotherapy per Dr. Bush. We're still waiting on pathology report. CT scanning of the chest abdomen and pelvis did reveal multiple lymph nodes in the chest and abdomen pain particularly in the periaortic chain.he has bilateral pathologic axillary adenopathy as well that would be most easily accessible if further tissue is needed or diagnostic or therapeutic purposes. Bone scanning predominantly distal revealed the left femur lesion there was mild uptake in the right hip at a level more consistent with degenerative disease and metastatic disease. his postoperative course is revealed no complication thus far. He does have a past history of coronary disease and hypertension with stage III chronic renal disease that is been stable thus far. Date Seen 03/04/17 Subjective/Events-last exam patient reports feeling better although he has not been sleeping well. He denies pain at night. He does have some discomfort with weightbearing reporting 5 on a scale of 0-10. CPT note. He's had no chest pain shortness of breath or palpitation. He reports each day 5 swelling and pain has improved however. Objective Exam Vital Signs Vital Sign - Last 12Hours 03/03/17 03/03/17 03/03/17 13:00 14:06 20:30 Temp 96.6 Pulse 81 Resp 16 B/P (MAP) 99/62 Pulse Ox 93 O2 Delivery Room Air O2 Flow Rate 2.00 Capillary Refill : Less Than 3 Seconds General Appearance: No Apparent Distress, Anxious Respiratory: Chest Non Tender, Lungs Clear, Normal Breath Sounds, No Accessory Muscle Use, No Respiratory Distress Cardiovascular: Regular Rate, Rhythm, No Edema, No Gallop, No JVD Extremity: Other (mild left thigh swelling no peripheral edema pain) Assessment/Plan Assessment and Plan Assess & Plan/Chief Complaint 1. 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 Pathology report still pending. 2. Hypertension continue reduced dose of and hypertensive medication due to relative hypotension. 3. Coronary artery disease clinically stable patient be scheduled for outpatient stress test. 4. Insomnia due to situational anxiety on top of some baseline anxiety after discussion Will leave when necessary White 25 mg alprazolam bedtime dose. DEBBIE BELL MD Mar 04, 2017 12:37
--- NOTE | 2017-03-04 12:42 | Discharge Summary-Hospitalist ---
Diagnosis/Chief Complaint Date of Admission Mar 03, 2017 at 14:03 Date of Discharge Admission Diagnosis 1. Status post left femoral pathologic fracture requiring left ORIF. Continue PT and OT 2. History of hypertension and hypertensive medicine had to be held due to relative hypotension with systolic pressure in the upper 90s this morning. Will DC amlodipine and decrease lisinopril to 20 mg daily. Continue to hold for systolic pressures less than 100. 3. History of coronary artery disease, clinically stable. Will DC telemetry. 4. Will DC Galaviz catheter. 5. Widely metastatic disease histopathology report pending from above ORIF. Discharge Diagnosis 1. 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 Pathology report still pending. 2. Hypertension continue reduced dose of and hypertensive medication due to relative hypotension. 3. Coronary artery disease clinically stable patient be scheduled for outpatient stress test. 4. Insomnia due to situational anxiety on top of some baseline anxiety after discussion Will leave when necessary White 25 mg alprazolam bedtime dose. Reason Hospital Visit/Course Mr. Ragsdale is a 72-year-old white male who suffered a pathologic left femur fracture and is status post ORIF left femur. He is being admitted to acute rehabilitation to continue physical therapy with expectations of returning to prior level of functioning and independent living at home. He has a past history of squamous cell carcinoma of the larynx diagnosed in 2004 for she finished course of radiation therapy and cisplatinum -based chemotherapy per Dr. Bush. We're still waiting on pathology report. CT scanning of the chest abdomen and pelvis did reveal multiple lymph nodes in the chest and abdomen pain particularly in the periaortic chain.he has bilateral pathologic axillary adenopathy as well that would be most easily accessible if further tissue is needed or diagnostic or therapeutic purposes. Bone scanning predominantly distal revealed the left femur lesion there was mild uptake in the right hip at a level more consistent with degenerative disease and metastatic disease. his postoperative course is revealed no complication thus far. He does have a past history of coronary disease and hypertension with stage III chronic renal disease that is been stable thus far. Hospital course: Patient underwent uneventful left ORIF. He was felt to be a good candidate for acute rehabilitation service with expectations of returning home. His case was discussed with Dr. Bush who will see him before his discharge when histopathology reporting is available when the treatment plan can then be set up.he'll be transferred to acute rehabilitation facility to continue rehabilitation services. Discharge Summary Discharge Physical Examination Allergies: Coded Allergies: No Known Drug Allergies (Unverified , 02/28/17) Vitals & I&Os Vital Signs Date Time Temp Pulse Resp B/P (MAP) Pulse Ox O2 Delivery O2 Flow Rate FiO2 03/04/17 09:06 70 99/61 03/04/17 09:00 Room Air 03/04/17 05:00 99.6 24 96 03/03/17 14:06 2.00 Discharge Home Medications: Active Scripts Active Reported Uloric (Febuxostat) 80 Mg Tablet 80 Mg PO HS Lisinopril 40 Mg Tablet 40 Mg PO DAILY Amlodipine Besylate 5 Mg Tablet 5 Mg PO DAILY Levothyroxine Sodium 100 Mcg Tablet 100 Mcg PO DAILY Pravastatin Sodium 80 Mg Tablet 80 Mg PO HS Ranitidine Hcl 300 Mg Tablet 300 Mg PO HS Aspirin Ec 81 Mg (Aspirin) 81 Mg Tabec 81 Mg PO DAILY Instructions to patient/family Please see electonic discharge instructions given to patient. Clinical Quality Measures DVT/VTE Risk/Contraindication: Risk Factor Score Per Nursin RFS Level Per Nursing on Admit: 4+=Very High DEBBIE BELL MD Mar 04, 2017 12:42
--- NOTE | 2017-03-04 14:56 | Therapy Group Daily Note ---
Therapy Daily Group Note Patient Education Topic Other List Below (ARU expectations/description, Stroke education) Exercises LE Seated Exercise, Fine Motor, UE Exercise Other/Notes Pt ambulated with SBA using FWW to OT/PT group. OT/PT group consisted of introductions (name, place living, 1st vehicle driven), socialization, ARU description/expectations, stroke education, UE/LE seated exercises, fine motor with visual perception activities. Pt contributed to group discussions appropriately and ask questions concerning educational topics. Pt was able to complete UE/LE exercises without difficulty. Pt was able to complete activities and assist other pt's with task. After group, pt ambulated with SBA using to room. Call light/phone in reach, visitors present in room. All needs met in room. Start Time: 13:00 Stop Time: 14:30 Total Billed Treatment Time: 90 Total Billed Treatment 1-GRP CHRISTINA CASON Mar 04, 2017 14:56
[2017-03-04 18:58] VITALS: BP 124/68
--- NOTE | 2017-03-04 19:01 | PM & R (SOAP) Progress Note ---
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 Review of Systems Musculoskeletal: leg pain Objective Exam Last Set of Vital Signs Vital Signs Date Time Temp Pulse Resp B/P (MAP) Pulse Ox O2 Delivery O2 Flow Rate FiO2 03/04/17 12:14 74 03/04/17 09:06 99/61 03/04/17 09:00 Room Air 03/04/17 05:00 99.6 24 96 03/03/17 14:06 2.00 Capillary Refill : Less Than 3 Seconds I&O Bad tableGeneral: Alert, Oriented X3, Cooperative, No Acute Distress HEENT: Atraumatic, PERRLA Neck: Supple, No JVD Lungs: Clear to Auscultation Heart: Regular Rate Abdomen: Normal Bowel Sounds, Soft, No Tenderness Extremities: Other (incision covered with island dressing left hip) Neuro: Other (Proximal weakness left hip) Assessment/Plan Assessment Pathological left femur FRX s/p ORIF DR Brush HX of laryngeal Ca DR Alaniz following HTN Plan Continue PT/OT Pain management F/U with DR Vizcaino and Corbin and Ortho as per their schedule F/U re Path report left femur TYRONE COLEMAN MD Mar 04, 2017 19:01
--- NOTE | 2017-03-04 19:05 | PM&R Post Admission Assessment ---
Post Admission Physician Asses The preadmission screen agrees with the post admission assessment that the patient is a good candidate for inpatient rehabilitation. The patient will have a comprehensive program of inpatient rehabilitation with a goal of maximizing level of functional dependence prior to discharge home with [family]. The patient will have PT/OT ninety minutes per day, each discipline, five days a week for gait strengthening, conditioning, balance, ADLs , any patient/family/caregiver training necessary. Speech therapy to do cognitive assessment and treat as indicted. Rehabilitation nursing to assist with bowel, bladder, skin, wound care, medication administration, pain management. Feather Baler to assist with discharge planning, community reentry. SCD's for DVT prophylaxis. He appears to be well motivated to participate in three hours of therapy a day. He should be able to tolerate three hours of therapy a day from a medical standpoint. He should benefit from the three hours of therapy a day. He has a reasonable discharge plan, reasonable discharge rehabilitation goals and a supportive family. He has various comorbidities that need to be closely monitored with medications and treatments adjusted on a daily basis as needed. These include: Metastatic CA path report pending HTN Tobaccoism Coronary Artery D Barriers to discharge for this patient who had been independent prior to this are for him to be modified independent to supervision for ADLs and mobility skills prior to discharge home with [family], so as to lessen the burden of the caregivers. Risks for this patient include: 1. Fall 2. Fracture 3. DVT 4. Pulmonary embolism 5. Wound infection 6. Skin breakdown 7. Contractures 8. Poorly controlled pain 9. Urinary retention 10. UTI 11. Respiratory infection 12. Aspiration 13. Poorly controlled HTN 14. Angina 15.Recuurent pathologic frx Estimated Length of Stay: 14days Prognosis: Rehab prognosis appears good at least short-term for goal of discharge home with spouse modified independent to supervision for ADLs and mobility skills. TYRONE COLEMAN MD Mar 04, 2017 19:05
--- NOTE | 2017-03-04 19:11 | Individualized Plan of Care ---
Individualized Plan of Care Rehab Nursing IPOC Order Admission Date Mar 03, 2017 at 14:03 Current Orders Orders Aspirin Chewable Tablet (Baby Aspirin Ch (03/04/17 10:15) Nursing Communication (Pt.Care (03/04/17 15:10) Patient Visit (03/04/17 ) Exercise Therap, Ea 15 Min (03/04/17 ) Gait Training, Ea 15 Min (03/04/17 ) Toilet every (bladder): (hrs): 2 hours while awake PRN Other Nursing Orders: eval and tx PT IPOC Problem List: Activity Tolerance, Functional Strength, Safety, Balance, Gait, Transfer, Bed Mobility, ROM Treatment Plan: Continue Plan of Care Bed Mobility, Education, Functional Activity David, Functional Strength, Group Therapy, Gait, Safety, Therapeutic Exercise, Transfers Treatment Duration: March 24, 2017 Visits Per Week: 10-11 Minutes/Day (M-F): 60-90 Minutes/Day (Sat/Trent): 15-30 OT IPOC Problems: Decreased Activ Tolerance, Dependent Transfers, Impaired Self-Care Skills OT Problems Pt admitted secondary to left femur fracture s/p TFN. Pt demonstrates decreased mobility and ADL functioning. Pt to benefit from skilled OT intervention for ADL training, transfers, strengthening, adaptive equipment education, and home safety education to maximize level of function and allow safe return home. Plan of Care: ADL Retraining, Functional Mobility, Group Exercise/Act as Ind, UE Funct Exercise/Act Treatment Duration: March 24, 2017 Visits Per Week: 10-12 Minutes/Day (M-F): 60-90 Minutes/Day (Sat/Trent): PRN ST IPOC Speech Therapy Treatment Plan: Discontinue ST Physician IPOC Medical Issues being managed closely and that require the 24 hour availability of a physician: metastatic bone CA, Pian management smoking cessation,HTN Medical Issues: DVT Prophylaxis, Falls Precautions, Fluid/Electrolyte/ Nutrition Balance, Infection Protection, Pain Management, Wound Care, Other ( List) (as per above) Brief Synthesis of Preadmission Screen, Post-Admission Evaluation, and Therapy Evaluations:72 yo retired male who lives with family in [facility] who sustained a pathologiocal frx left femur while going to see his PCP re Left leg pain Admitted to [facility] and underwent ORIF left femur with orthopedics Being followed by Dr Vizcaino PCP and DR Corbin Medonc as well as ortho.Had been Independent prior to this PMH Laryngeal ca and HTN and tobaccoism Patient to have further workup for metastaic Disease. Medical Prognosis: Short-term good Jail TBD Anticipated Length of Stay: 03/24/17 Rehab Goals Modified Independent for adls and mobility skills Anticipated discharge destinat: Home with family and [facility] TYRONE COLEMAN MD Mar 04, 2017 19:11
[2017-03-04] MEDS: FAMOTIDINE 20 MG (PEPCID) TABLET PO SCH (20:29)
[2017-03-04] MEDS: ATORVASTATIN 40 MG (LIPITOR) TABLET PO SCH (20:29)
[2017-03-05] MEDS: oxyCODONE/APAP 5/325MG (PERCOCET 5) TABLET PO PRN ×6 (02:41→23:52)
[2017-03-05 05:35] VITALS: BP 121/71
[2017-03-05] MEDS: LEVOTHYROXINE 100 MCG (LEVOTHROID) TAB PO SCH (05:55)
[2017-03-05 07:27] VITALS: BP_SYST 106; BP_SYST 94; BP_DIAS 54; BP_DIAS 64
[2017-03-05] MEDS: ASPIRIN 81 MG CHEW (CHILDREN'S ASA) PO SCH (07:29)
[2017-03-05] MEDS: BISACODYL 5 MG (DULCOLAX) TABLET PO SCH (07:29)
[2017-03-05] MEDS: amLODIPine 5 MG (NORVASC) TAB PO SCH (07:29)
[2017-03-05] MEDS: lisINopril 20 MG (ZESTRIL) TAB PO SCH (07:29)
--- NOTE | 2017-03-05 12:05 | Physical Therapy Daily Note ---
PT Daily Note-Current Subjective Patient agrees to PT. Pain Numeric Pain Scale: 5-Moderate Pain Location: Left Location Body Site: Thigh Pain Description: Acute Comment: declined pain medication Mental Status Patient Orientation: Normal For Age Transfers Functional [place] Measure 0=Not Assessed/NA 4=Minimal Assistance 1=Total Assistance 5=Supervision or Setup 2=Maximal Assistance 6=Modified [place] 3=Moderate Assistance 7=Complete IndependenceIRFPAI Quality Coding Scale 6 Independent with activity with or without an assistive device 5 Patient requires set up or clean up by helper. Patient completes activity by themselves 4 Supervision or touching assist (CGA). [place] provide cues , steadying assist 3 The helper provides less than half the effort to complete the activity 2 The helper provides more than half the effort to complete the activity 1 Dependent. The helper does all the effort to complete an activity 7 Patient refused to complete or attempt activity 9 The patient did not perform the activity before the current illness or injury 88 Not attempted due to Medical conditions or safety concerns Transfers (B, C, W/C) (FIM): 6 Scootin Rollin Roll Left to Right (QC): 5 Supine to/from Sit: 6 Sit to/from Stand: 6 Sit to Lying (QC): 5 Sit to Stand (QC): 5 Weight Bearing Weight Bearing Restriction: Weight Bearing/Tolerated Location Restriction: L LE Gait Training Does the Patient Walk?: Yes Gait (FIM): 5 Distance (FIM): 3=150 ft Distance: 300' Walk 10 feet (QC): 5 Walk 50 ft with 2 Turns(QC): 5 Walk 150 ft (QC): 5 Gait Level of Assist: 5 Gait Assistive Device: FWW antalgic gait sequence Assessment Patient is progressing with treatment plan. PT to increase activity as tolerated by patient. PT Short Term Goals Short Term Goals Time Frame: Mar 10, 2017 Gait (FIM): 5 Gait Distance Comment: 250' Gait Level of Assist: 5 Gait Assistive Device: FWW PT Replenishment Analyst Goals Replenishment Analyst Goals PT Custodial Goals Time Frame: March 24, 2017 Transfers (B,C,W/C) (FIM): 6 Sit to Lying (QC): 6 Lying-Sitting on Side/Bed(QC): 6 Sit to Stand (QC): 6 Rollin Roll Left to Right (QC): 6 Car Transfer (QC): 4 Gait (FIM): 6 Distance: 300' Walk 10 feet (QC): 6 Walk 10ft-Uneven Surface(QC): 6 Walk 50ft with 2 Turns (QC): 6 Walk 150 ft (QC): 6 Gait Level of Assist: 6 Gait Assistive Device: FWW Stairs (FIM): 5 # of Steps: 12 1 Step (curb) (QC): 4 4 Steps (QC): 4 12 Steps (QC): 4 Stairs Level Of Assist: 5 Picking up an Object (QC): 88 PT Plan Treatment/Plan Treatment Plan: Continue Plan of Care Treatment Plan: Bed Mobility, Education, Functional Activity David, Functional Strength, Group Therapy, Gait, Safety, Therapeutic Exercise, Transfers Treatment Duration: March 24, 2017 Visits Per Week: 10-11 Minutes/Day (M-F): 60-90 Minutes/Day (Sat/Trent): 15-30 Time/GCodes Time In: 1145 Time Out: 1155 Total Billed Treatment Time: 10 Total Billed Treatment 1 visit GT 10 min FEDE CHANEL PT Mar 05, 2017 12:05
[2017-03-05 18:00] VITALS: BP 119/67
[2017-03-05] MEDS: FAMOTIDINE 20 MG (PEPCID) TABLET PO SCH (19:57)
[2017-03-05] MEDS: ATORVASTATIN 40 MG (LIPITOR) TABLET PO SCH (19:57)
[2017-03-06] MEDS: oxyCODONE/APAP 5/325MG (PERCOCET 5) TABLET PO PRN ×4 (03:34→19:07)
[2017-03-06 05:19] VITALS: BP 116/63
[2017-03-06] MEDS: LEVOTHYROXINE 100 MCG (LEVOTHROID) TAB PO SCH (06:12)
[2017-03-06] MEDS: BISACODYL 5 MG (DULCOLAX) TABLET PO SCH (09:24)
[2017-03-06] MEDS: amLODIPine 5 MG (NORVASC) TAB PO SCH (09:24)
[2017-03-06] MEDS: ASPIRIN 81 MG CHEW (CHILDREN'S ASA) PO SCH (09:24)
[2017-03-06] MEDS: lisINopril 20 MG (ZESTRIL) TAB PO SCH (09:24)
[2017-03-06 17:47] VITALS: BP 115/68
[2017-03-06] MEDS: FAMOTIDINE 20 MG (PEPCID) TABLET PO SCH (20:32)
[2017-03-06] MEDS: ATORVASTATIN 40 MG (LIPITOR) TABLET PO SCH (20:32)
[2017-03-07] MEDS: oxyCODONE/APAP 5/325MG (PERCOCET 5) TABLET PO PRN ×4 (01:49→20:58)
[2017-03-07 05:47] VITALS: BP 128/67
[2017-03-07] MEDS: LEVOTHYROXINE 100 MCG (LEVOTHROID) TAB PO SCH (06:10)
[2017-03-07] MEDS: BISACODYL 5 MG (DULCOLAX) TABLET PO SCH (08:27)
[2017-03-07] MEDS: amLODIPine 5 MG (NORVASC) TAB PO SCH (08:27)
[2017-03-07] MEDS: ASPIRIN 81 MG CHEW (CHILDREN'S ASA) PO SCH (08:27)
[2017-03-07] MEDS: lisINopril 20 MG (ZESTRIL) TAB PO SCH (08:27)
--- NOTE | 2017-03-07 08:39 | Physical Therapy Daily Note ---
PT Daily Note-Current Subjective Pt. in bed. Agrees to Rx. States he notices more swelling than he had expected and is surprised at how stiff he gets so quickly Pain Numeric Pain Scale: 0-No Pain Appearance edema noted L thigh Transfers Functional [place] Measure 0=Not Assessed/NA 4=Minimal Assistance 1=Total Assistance 5=Supervision or Setup 2=Maximal Assistance 6=Modified [place] 3=Moderate Assistance 7=Complete IndependenceIRFPAI Quality Coding Scale 6 Independent with activity with or without an assistive device 5 Patient requires set up or clean up by helper. Patient completes activity by themselves 4 Supervision or touching assist (CGA). [place] provide cues , steadying assist 3 The helper provides less than half the effort to complete the activity 2 The helper provides more than half the effort to complete the activity 1 Dependent. The helper does all the effort to complete an activity 7 Patient refused to complete or attempt activity 9 The patient did not perform the activity before the current illness or injury 88 Not attempted due to Medical conditions or safety concerns Transfers (B, C, W/C) (FIM): 5 Scootin Rollin Supine to/from Sit: 5 Sit to/from Stand: 6 Bed to/from Chair: 5 with bed pad removed pt. moved easier in bed, is able to pull himself up in bed indep and sup to sit with bed flat indep Gait Training Does the Patient Walk?: Yes Gait (FIM): 5 Distance (FIM): 3=150 ft (200x2,150) Gait Level of Assist: 5 Gait Persons Needed: 1 Gait Assistive Device: FWW slow moving step to gait Stair Training Stair Training: Handrails/: 2 handrails Stairs (FIM): 5 #of Steps: 4 Stairs: Pattern: Step to Level of Assist: 5 Exercises Supine Ex: Ankle pumps, Quad Set, Rolling, Glut sets, Heel Slides, Short Arc Quads, Scooting, Straight leg raise, Hip abd/add Supine Reps: 15 Standing: Hip Abduction, Heel/toe raises, Marching Standing Reps: 12 Assessment Current Status: Excellent Progress PT Short Term Goals Short Term Goals Time Frame: Mar 10, 2017 Gait (FIM): 5 Gait Distance Comment: 250' Gait Level of Assist: 5 Gait Assistive Device: FWW PT Alf Goals Alf Goals PT Alf Goals Time Frame: March 24, 2017 Transfers (B,C,W/C) (FIM): 6 Sit to Lying (QC): 6 Lying-Sitting on Side/Bed(QC): 6 Sit to Stand (QC): 6 Rollin Roll Left to Right (QC): 6 Car Transfer (QC): 4 Gait (FIM): 6 Distance: 300' Walk 10 feet (QC): 6 Walk 10ft-Uneven Surface(QC): 6 Walk 50ft with 2 Turns (QC): 6 Walk 150 ft (QC): 6 Gait Level of Assist: 6 Gait Assistive Device: FWW Stairs (FIM): 5 # of Steps: 12 1 Step (curb) (QC): 4 4 Steps (QC): 4 12 Steps (QC): 4 Stairs Level Of Assist: 5 Picking up an Object (QC): 88 PT Plan Treatment/Plan Treatment Plan: Continue Plan of Care Treatment Plan: Bed Mobility, Education, Functional Activity David, Functional Strength, Group Therapy, Gait, Safety, Therapeutic Exercise, Transfers Treatment Duration: March 24, 2017 Visits Per Week: 10-11 Minutes/Day (M-F): 60-90 Minutes/Day (Sat/Trent): 15-30 Safety Risks/Education Patient Education: Gait Training, Transfer Techniques, Steps, Issued Written HEP, Reviewed Precautions, Correct Positioning, Disease Process, Safety Issues Teaching Recipient: Patient Teaching Methods: Demonstration, Discussion Response to Teaching: Verbalize Understanding, Return Demonstration Time/GCodes Time In: 755 Time Out: 840 Total Billed Treatment Time: 45 Total Billed Treatment 1,FA10m,GT15m,EX20m G Codes Necessary: SOHAIL Banuelos POWER PLANT TECHNICIAN Mar 07, 2017 08:39
--- NOTE | 2017-03-07 12:03 | Occupational Ther Daily Note ---
OT Current Status-Daily Note Subjective Pt sitting EOB, agrees to treatment. pt reports 5/10 pain in left LE. Mental Status/Objective Functional [place] Measure 0=Not Assessed/NA 4=Minimal Assistance 1=Total Assistance 5=Supervision or Setup 2=Maximal Assistance 6=Modified [place] 3=Moderate Assistance 7=Complete [place] ADL-Treatment Pt declined shower at this time and is already dressed this morning. Reviewed use of adaptive equipment for LE dressing. Pt demonstrated ability to doff shoes and socks with SBA using adaptive equipment. Pt donned socks with SBA using sock aid. Pt donned right shoe with SBA, required minimal assistance for left shoe using long shoe horn. Gait to shower room. Pt states he has a tub/ shower combo with grab bars and states he thinks he also has access to an extended shower bench. Instructed pt in safe transfer using shower bench. Pt demonstrates ability to perform transfer with SBA. Functional [place] Measure 0=Not Assessed/NA 4=Minimal Assistance 1=Total Assistance 5=Supervision or Setup 2=Maximal Assistance 6=Modified [place] 3=Moderate Assistance 7=Complete IndependenceIRFPAI Quality Coding Scale 6 Independent with activity with or without an assistive device 5 Patient requires set up or clean up by helper. Patient completes activity by themselves 4 Supervision or touching assist (CGA). [place] provide cues , steadying assist 3 The helper provides less than half the effort to complete the activity 2 The helper provides more than half the effort to complete the activity 1 Dependent. The helper does all the effort to complete an activity 7 Patient refused to complete or attempt activity 9 The patient did not perform the activity before the current illness or injury 88 Not attempted due to Medical conditions or safety concerns Other Treatment Gait to therapy gym with FWW, no LOB noted. Arm bike x15 minutes to increase overall strength and activity tolerance. Pt completed task with moderate resistance and slow pace, no rest breaks needed. Bilateral UE exercises complete to promote increased strength needed for ADLs and transfers. Pt performed shoulder flexion, abduction, biceps curls, and triceps extension exercises x20 reps with moderate resistance (red) theraband. Brief rest breaks between exercises. Pt returned to room, transferred to chair with SBA. Pt in chair with needs met after session. Education OT Patient Education: Modified ADL techniques Teaching Recipient: Patient Teaching Methods: Discussion Response to Teaching: Verbalize Understanding OT Short Term Goals Short Term Goals Time Frame: Mar 10, 2017 Bathing(FIM): 5 Lower Body Dressing(FIM): 5 Toileting(FIM): 5 Toilet/Commode Transfer(FIM): 5 Additional Short Term Goals: 1-Demonstrate ADL Tasks, 2-Verbalize Understanding , 3-ImproveStrength/David 1=Demonstrate adherence to instructed precautions during ADL tasks. 2=Patient will verbalize/demonstrate understanding of assistive devices/ modifications for ADL. 3=Patient will improve strength/tolerance for activity to enable patient to perform ADL's. OT Alf Goals Alf Goals Time Frame: March 24, 2017 Eating (FIM): 6 Eating (QC): 6 Groomin Oral Hygiene (QC): 6 Bathing(FIM): 6 Shower/Bathe Self (QC): 6 Upper Body Dressing(FIM): 6 Upper Body Dressing (QC): 6 Lower Body Dressing(FIM): 6 Lower Body Dressing (QC): 6 On/Off Footwear (QC): 6 Toileting(FIM): 6 Toileting Hygiene (QC): 6 Toilet/Commode Transfer(FIM): 6 Toilet/Commode Transfer (QC): 6 Shower Transfer(FIM): 6 Additional Goals: 1-Demonstrate ADL Tasks, 2-Verbalize Understanding, 3- ImproveStrength/David 1=Demonstrate adherence to instructed precautions during ADL tasks. 2=Patient will verbalize/demonstrate understanding of assistive devices/ modifications for ADL. 3=Patient will improve strength/tolerance for activity to enable patient to perform ADL's. OT Education/Plan Problem List/Assessment Pt admitted secondary to left femur fracture s/p TFN. Pt demonstrates decreased mobility and ADL functioning. Pt to benefit from skilled OT intervention for ADL training, transfers, strengthening, adaptive equipment education, and home safety education to maximize level of function and allow safe return home. Discharge Recommendations Plan/Recommendations: Continue POC Treatment Plan/Plan of Care Patient would benefit from OT for education, treatment and training to promote independence in ADL's, mobility, safety and/or upper extremity function for ADL' s. Plan of Care: ADL Retraining, Functional Mobility, Group Exercise/Act as Ind, UE Funct Exercise/Act Treatment Duration: March 24, 2017 Visits Per Week: 10-12 Minutes/Day (M-F): 60-90 Minutes/Day (Sat/Trent): PRN Agreement: Yes Rehab Potential: Fair Time/GCodes Start Time: 09:45 Stop Time: 10:45 Total Time Billed (hr/min): 60 Billed Treatment Time 1 visit, ADLx2(30minutes), EXx2(30minutes) CHRIS MEADE OT Mar 07, 2017 12:02
--- NOTE | 2017-03-07 14:53 | Therapy Group Daily Note ---
Therapy Daily Group Note Patient Education Topic Home Safety Exercises LE Seated Exercise, Sit to/from Stand, UE Exercise Other/Notes Pt. attended group PT OT ST session this date. Pt. ambulated with FWW to/from group. Pt. introduced self and was social. Education and game this date focused on Home safety aspects. Pts did sit to stand and bag toss onto a safety topic written on scattered pieces of paper on floor. Pts expressed his views of different safety hazards and ways to manage them at home etc. Voice exercises were also done per ROUTE AGENT. Pt. to room after with in assist to bed, cervantes at hand etc. Start Time: 13:00 Stop Time: 14:15 Total Billed Treatment Time: 75 Total Billed Treatment 1,GRP SOHAIL BACH LINE RIDER Mar 07, 2017 14:52
--- NOTE | 2017-03-07 17:57 | Progress Note-Standard ---
Standard Progress Note Progress Notes/Assess & Plan Progress/Assessment & Plan 72-year-old male admitted with pathologic fracture of femur. Patient has remote history of squamous cell carcinoma of the larynx which was treated with combined chemoradiation more than 12 years ago. Status post surgical repair with biopsy. Pathology reported mostly necrotic tissue with a small focus of malignant cells which are poorly differentiated. Preliminarily IHC studies indicate lung or upper GI primary. Markers for squamous cell carcinoma was negative. We will need additional tissue for further testing. I have discussed the case with Dr. Theodore who felt an ultrasound-guided biopsy of the enlarged axillary lymph node would be the least invasive way to obtain additional tissue. I will consult him for this procedure within the next one to 2 days. I have discussed this with the patient who agrees to proceed with the procedure. Patient will also need radiation therapy to the pathology fracture once healed from the surgery. GIGI ORDOÑEZ Mar 07, 2017 17:57
[2017-03-07 18:51] VITALS: BP 124/58
--- NOTE | 2017-03-07 19:04 | PM & R (SOAP) Progress Note ---
Subjective Subjective/Events-last exam Patient was seen in his room this evening Appreciate DR Bush note,Discussed case with RN Patient c/o breakthrogh pain Last serum K elevated Will recheck labs Patient SBA for transfers Objective Exam Last Set of Vital Signs Vital Signs Date Time Temp Pulse Resp B/P (MAP) Pulse Ox O2 Delivery O2 Flow Rate FiO2 03/07/17 05:47 98.2 67 18 128/67 96 Room Air 03/03/17 14:06 2.00 Capillary Refill : Less Than 3 Seconds I&O Intake and Output 03/07/17 00:00 Intake Total 1500 ml Output Total 1200 ml Balance 300 ml Intake Oral 1500 ml Output Urine Total 1200 ml # Bowel Movements 1 General: Alert, Oriented X3, Cooperative, No Acute Distress HEENT: Atraumatic, PERRLA Neck: Supple, No JVD Lungs: Clear to Auscultation Heart: Regular Rate Abdomen: Normal Bowel Sounds, Soft, No Tenderness Extremities: Other (incision covered with island dressing left hip) Neuro: Other (Proximal weakness left hip) Assessment/Plan Assessment Pathological left femur FRX s/p ORIF DR Brush HX of laryngeal Ca DR Alaniz following HTN Pain management Recent episode of hyperkalemia Plan Continue PT/OT Pain management F/U with DR Dover and Ortho as per their schedule F/U re Path report left femur Recheck Labs-See orders Team Conference 03/09/17. TYRONE COLEMAN MD Mar 07, 2017 19:04
[2017-03-07] MEDS: ATORVASTATIN 40 MG (LIPITOR) TABLET PO SCH (20:15)
[2017-03-07] MEDS: morphine ER 15 MG (MS CONTIN) TAB PO SCH (20:15)
[2017-03-07] MEDS: FAMOTIDINE 20 MG (PEPCID) TABLET PO SCH (20:15)
[2017-03-08] MEDS: oxyCODONE/APAP 5/325MG (PERCOCET 5) TABLET PO PRN ×2 (01:02→10:14)
[2017-03-08 05:00] VITALS: BP_SYST 106; BP_SYST 118; BP_DIAS 63; BP_DIAS 67
[2017-03-08] MEDS: LEVOTHYROXINE 100 MCG (LEVOTHROID) TAB PO SCH (06:04)
[2017-03-08 06:28] LABS: BASOPHILS % (AUTO) 1 % (0-10); EOSINOPHILS # (AUTO) 0.2 10^3/uL (0.0-0.3); EOSINOPHILS % (AUTO) 5 % (0-10); LYMPHOCYTES # (AUTO) 0.7 X 10^3 (1.0-4.0); LYMPHOCYTES % (AUTO) 18 % (12-44); MEAN CORPUSCULAR HEMOGLOBIN 31 PG (25-34); MEAN CORPUSCULAR HGB CONC 34 G/DL (32-36); MEAN CORPUSCULAR VOLUME 89 FL (80-99); MEAN PLATELET VOLUME 9.3 FL (7.4-10.4); MONOCYTES # (AUTO) 0.9 X 10^3 (0.0-1.0); MONOCYTES % (AUTO) 26 % (0-12); NEUTROPHILS # (AUTO) 1.8 X 10^3 (1.8-7.8); NEUTROPHILS % (AUTO) 51 % (42-75); PLATELET COUNT 352 10^3/uL (130-400); RED BLOOD COUNT 4.03 10^6/uL (4.35-5.85); RED CELL DISTRIBUTION WIDTH 12.6 % (10.0-14.5); WHITE BLOOD COUNT 3.6 10^3/uL (4.3-11.0)
[2017-03-08 06:44] LABS: ALANINE AMINOTRANSFERASE 44 U/L (0-55); ALBUMIN 2.9 G/DL (3.2-4.5); ANION GAP 8 MMOL/L (5-14); ASPARTATE AMINO TRANSFERASE 63 U/L (5-34); BILIRUBIN,TOTAL 1.1 MG/DL (0.1-1.0); BLOOD UREA NITROGEN 21 MG/DL (7-18); BUN/CREATININE RATIO 18; CALCIUM 9.1 MG/DL (8.5-10.1); CARBON DIOXIDE 24 MMOL/L (21-32); CHLORIDE 105 MMOL/L (98-107); CREATININE SERUM 1.18 MG/DL (0.60-1.30); GFR ESTIMATED > 60; GLUCOSE 90 MG/DL (70-105); POTASSIUM 4.6 MMOL/L (3.6-5.0); SODIUM 137 MMOL/L (135-145); TOTAL PROTEIN 5.7 G/DL (6.4-8.2)
[2017-03-08 07:50] LABS: PROTHROMBIN TIME PATIENT 13.3 SEC (12.2-14.7)
[2017-03-08] MEDS: amLODIPine 5 MG (NORVASC) TAB PO SCH (08:00)
[2017-03-08] MEDS: BISACODYL 5 MG (DULCOLAX) TABLET PO SCH (08:00)
[2017-03-08] MEDS: lisINopril 20 MG (ZESTRIL) TAB PO SCH (08:00)
[2017-03-08] MEDS: ASPIRIN 81 MG CHEW (CHILDREN'S ASA) PO SCH (08:00)
[2017-03-08 08:04] VITALS: BP 137/72
--- NOTE | 2017-03-08 10:06 | Physical Therapy Daily Note ---
PT Daily Note-Current Subjective Pt. states he doesnt feel well today and can honestly say he did not sleep one wink last night. States he doesnt really sleep at home either. Hope that taking a hot shower later on might help him rest better. Pain Numeric Pain Scale: 3 Location: Left Location Body Site: Hip Pain Description: Ache Comment: c/o stiffness in his hip after sitting awhile Mental Status Patient Orientation: Normal For Age Transfers Functional [place] Measure 0=Not Assessed/NA 4=Minimal Assistance 1=Total Assistance 5=Supervision or Setup 2=Maximal Assistance 6=Modified [place] 3=Moderate Assistance 7=Complete IndependenceIRFPAI Quality Coding Scale 6 Independent with activity with or without an assistive device 5 Patient requires set up or clean up by helper. Patient completes activity by themselves 4 Supervision or touching assist (CGA). [place] provide cues , steadying assist 3 The helper provides less than half the effort to complete the activity 2 The helper provides more than half the effort to complete the activity 1 Dependent. The helper does all the effort to complete an activity 7 Patient refused to complete or attempt activity 9 The patient did not perform the activity before the current illness or injury 88 Not attempted due to Medical conditions or safety concerns Transfers (B, C, W/C) (FIM): 6 Scootin Rollin Supine to/from Sit: 6 Sit to/from Stand: 6 Bed to/from Chair: 6 Weight Bearing Weight Bearing Restriction: Weight Bearing/Tolerated Gait Training Does the Patient Walk?: Yes Gait (FIM): 6 Distance (FIM): 3=150 ft (200x2) Gait Level of Assist: 6 Gait Persons Needed: 0 Gait Assistive Device: FWW Stair Training Stair Training: Handrails/: 2 handrails Stairs (FIM): 5 #of Steps: 4 Stairs: Pattern: Step to Level of Assist: 5 Exercises Supine Ex: Ankle pumps, Quad Set, Rolling, Glut sets, Heel Slides, Short Arc Quads, Scooting, Straight leg raise (w assist), Hip abd/add Seated Therapy Exercises: Ankle pumps, Sit to stand, Long arc quads Seated Reps: 10 NuStep Minutes: 10 NuStep Workload: 2 Assessment Current Status: Good Progress feels he may be ready to go home by Thurs but thinks he may have some kind of biopsy or test pending before he can DC PT Short Term Goals Short Term Goals Time Frame: Mar 10, 2017 Gait (FIM): 5 Gait Distance Comment: 250' Gait Level of Assist: 5 Gait Assistive Device: FWW PT Online Community Manager Goals Shelter Goals PT Shelter Goals Time Frame: March 24, 2017 Transfers (B,C,W/C) (FIM): 6 Sit to Lying (QC): 6 Lying-Sitting on Side/Bed(QC): 6 Sit to Stand (QC): 6 Rollin Roll Left to Right (QC): 6 Car Transfer (QC): 4 Gait (FIM): 6 Distance: 300' Walk 10 feet (QC): 6 Walk 10ft-Uneven Surface(QC): 6 Walk 50ft with 2 Turns (QC): 6 Walk 150 ft (QC): 6 Gait Level of Assist: 6 Gait Assistive Device: FWW Stairs (FIM): 5 # of Steps: 12 1 Step (curb) (QC): 4 4 Steps (QC): 4 12 Steps (QC): 4 Stairs Level Of Assist: 5 Picking up an Object (QC): 88 PT Plan Treatment/Plan Treatment Plan: Continue Plan of Care Treatment Plan: Bed Mobility, Education, Functional Activity David, Functional Strength, Group Therapy, Gait, Safety, Therapeutic Exercise, Transfers Treatment Duration: March 24, 2017 Visits Per Week: 10-11 Minutes/Day (M-F): 60-90 Minutes/Day (Sat/Trent): 15-30 Safety Risks/Education Patient Education: Gait Training, Transfer Techniques, Steps Teaching Recipient: Patient Teaching Methods: Demonstration, Discussion Response to Teaching: Verbalize Understanding, Return Demonstration, Reinforcement Needed Time/GCodes Time In: 915 Time Out: 1015 Total Billed Treatment Time: 60 Total Billed Treatment 1,FA25m,GT15m,EX20m G Codes Necessary: SOHAIL Banuelos CEO & BOARD DIRECTOR Mar 08, 2017 10:06
[2017-03-08] MEDS: morphine ER 15 MG (MS CONTIN) TAB PO SCH (10:14)
--- NOTE | 2017-03-08 10:19 | Occupational Ther Daily Note ---
OT Current Status-Daily Note Subjective Pt sitting EOB, states he does not feel as well today and is tired today secondary to not sleeping at all last night. Pt reports minimal pain in left LE , but does not rate. After session pt states he is glad he was able to get and move a little bit. Mental Status/Objective Functional [place] Measure 0=Not Assessed/NA 4=Minimal Assistance 1=Total Assistance 5=Supervision or Setup 2=Maximal Assistance 6=Modified [place] 3=Moderate Assistance 7=Complete [place] ADL-Treatment Pt declined to shower at this time, states he might take one later. Pt is already dressed. Pt states he was able to don shoes without assistance using adaptive equipment while seated EOB. Functional [place] Measure 0=Not Assessed/NA 4=Minimal Assistance 1=Total Assistance 5=Supervision or Setup 2=Maximal Assistance 6=Modified [place] 3=Moderate Assistance 7=Complete IndependenceIRFPAI Quality Coding Scale 6 Independent with activity with or without an assistive device 5 Patient requires set up or clean up by helper. Patient completes activity by themselves 4 Supervision or touching assist (CGA). [place] provide cues , steadying assist 3 The helper provides less than half the effort to complete the activity 2 The helper provides more than half the effort to complete the activity 1 Dependent. The helper does all the effort to complete an activity 7 Patient refused to complete or attempt activity 9 The patient did not perform the activity before the current illness or injury 88 Not attempted due to Medical conditions or safety concerns Other Treatment Sit to stand with modified independence. Gait to therapy gym with slow pace. Arm bike x15 minutes to increase overall strength and activity tolerance needed for functional tasks. Pt completed task with moderate resistance and slow pace. No rest breaks needed. Pt performed fine motor task with nuts and bolts with 2# weights in place to increase strength and fine motor coordination. Bilateral UE exercises completed to increase strength needed for ADLs and transfers. Pt performed shoulder flexion, forward press, biceps curls, and wrist flex/ext x20 reps with 2# dowel gavin. Rest breaks between exercises. Pt completed putty activity with bilateral hands to increase technical writer and editor pinch strength. Pt then able to remove small beads from moderate resistance putty. Pt returned to room and transferred to chair using FWW. Pt sitting in chair with needs met after session. OT Short Term Goals Short Term Goals Time Frame: Mar 10, 2017 Bathing(FIM): 5 Lower Body Dressing(FIM): 5 Toileting(FIM): 5 Toilet/Commode Transfer(FIM): 5 Additional Short Term Goals: 1-Demonstrate ADL Tasks, 2-Verbalize Understanding , 3-ImproveStrength/David 1=Demonstrate adherence to instructed precautions during ADL tasks. 2=Patient will verbalize/demonstrate understanding of assistive devices/ modifications for ADL. 3=Patient will improve strength/tolerance for activity to enable patient to perform ADL's. OT Fpc Goals Fpc Goals Time Frame: March 24, 2017 Eating (FIM): 6 Eating (QC): 6 Groomin Oral Hygiene (QC): 6 Bathing(FIM): 6 Shower/Bathe Self (QC): 6 Upper Body Dressing(FIM): 6 Upper Body Dressing (QC): 6 Lower Body Dressing(FIM): 6 Lower Body Dressing (QC): 6 On/Off Footwear (QC): 6 Toileting(FIM): 6 Toileting Hygiene (QC): 6 Toilet/Commode Transfer(FIM): 6 Toilet/Commode Transfer (QC): 6 Shower Transfer(FIM): 6 Additional Goals: 1-Demonstrate ADL Tasks, 2-Verbalize Understanding, 3- ImproveStrength/David 1=Demonstrate adherence to instructed precautions during ADL tasks. 2=Patient will verbalize/demonstrate understanding of assistive devices/ modifications for ADL. 3=Patient will improve strength/tolerance for activity to enable patient to perform ADL's. OT Education/Plan Problem List/Assessment Pt admitted secondary to left femur fracture s/p TFN. Pt demonstrates decreased mobility and ADL functioning. Pt to benefit from skilled OT intervention for ADL training, transfers, strengthening, adaptive equipment education, and home safety education to maximize level of function and allow safe return home. Discharge Recommendations Plan/Recommendations: Continue POC Treatment Plan/Plan of Care Patient would benefit from OT for education, treatment and training to promote independence in ADL's, mobility, safety and/or upper extremity function for ADL' s. Plan of Care: ADL Retraining, Functional Mobility, Group Exercise/Act as Ind, UE Funct Exercise/Act Treatment Duration: March 24, 2017 Visits Per Week: 10-12 Minutes/Day (M-F): 60-90 Minutes/Day (Sat/Trent): PRN Agreement: Yes Rehab Potential: Fair Time/GCodes Start Time: 08:15 Stop Time: 09:15 Total Time Billed (hr/min): 60 Billed Treatment Time 1 visit, EXx4(60minutes) CHRIS MEADE OT Mar 08, 2017 10:19
[2017-03-08] MEDS ORDERED: LIDOCAINE 1% INJ 20 ML (XYLOCAINE) VIAL ONE (10:20)
[2017-03-08] MEDS ORDERED: LIDOCAINE 1% INJ 20 ML (XYLOCAINE) VIAL INJ ONE (11:00)
--- NOTE | 2017-03-08 12:17 | Progress Note-Hospitalist ---
Subjective HPI/CC On Admission Mr. Ragsdale is a 72-year-old white male who suffered a pathologic left femur fracture and is status post ORIF left femur. He is being admitted to acute rehabilitation to continue physical therapy with expectations of returning to prior level of functioning and independent living at home. He has a past history of squamous cell carcinoma of the larynx diagnosed in 2004 for she finished course of radiation therapy and cisplatinum -based chemotherapy per Dr. Bush. We're still waiting on pathology report. CT scanning of the chest abdomen and pelvis did reveal multiple lymph nodes in the chest and abdomen pain particularly in the periaortic chain.he has bilateral pathologic axillary adenopathy as well that would be most easily accessible if further tissue is needed or diagnostic or therapeutic purposes. Bone scanning predominantly distal revealed the left femur lesion there was mild uptake in the right hip at a level more consistent with degenerative disease and metastatic disease. his postoperative course is revealed no complication thus far. He does have a past history of coronary disease and hypertension with stage III chronic renal disease that is been stable thus far. Hospital course: Patient underwent uneventful left ORIF. He was felt to be a good candidate for acute rehabilitation service with expectations of returning home. His case was discussed with Dr. Bush who will see him before his discharge when histopathology reporting is available when the treatment plan can then be set up.he'll be transferred to acute rehabilitation facility to continue rehabilitation services. Date Seen 03/08/17 Subjective/Events-last exam Mr. Ragsdale has just returned from needle biopsy to obtain extra tissue from a left axillary node. He denies any current pain. He reports he should days getting around a little better. He was given MS Contin for the first time last night at 15 mg and did not like the way it made him feel. He does not have problems with short acting oxycodone. He reports that he has not been sleeping well but it has not been related to pain. He still reports some soreness and stiffness especially with weightbearing involving the left thigh denies pain in any other location. Objective Exam Vital Signs Vital Sign - Last 12Hours 03/03/17 03/03/17 03/03/17 13:00 14:06 20:30 Temp 96.6 Pulse 81 Resp 16 B/P (MAP) 99/62 Pulse Ox 93 O2 Delivery Room Air O2 Flow Rate 2.00 Capillary Refill : Less Than 3 Seconds General Appearance: No Apparent Distress, Anxious Respiratory: Chest Non Tender, Lungs Clear, Normal Breath Sounds, No Accessory Muscle Use, No Respiratory Distress Cardiovascular: Regular Rate, Rhythm, No Edema, No Gallop, No JVD, No Murmur, Normal Peripheral Pulses Extremity: No Pedal Edema, Other (Left thigh swelling is about the same. There is some left axillary swelling without not formation or evidence for ecchymosis no tenderness is noted and there is no pain to palpation. There is no evidence for external bleeding of the axillary biopsy site.) Results/Procedures Lab Laboratory Tests 03/08/17 06:15 Assessment/Plan Assessment and Plan Assess & Plan/Chief Complaint 1. 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 Pathology report a lot of necrotic tissue with a small focus of poorly differentiated malignant cells. Axillary node biopsy has been obtained to be sent for further tumor evaluation. As noted by Dr. Bush patient will require radiation therapy to his pathologic fracture side of the left femur on discharge tentatively scheduled for of this week.. 2. Hypertension continue reduced dose of and hypertensive medication due to relative hypotension. 3. Coronary artery disease clinically stable patient be scheduled for outpatient stress test. 4. Insomnia due to situational anxiety on top of some baseline anxiety after discussion Will leave when necessary .25 mg alprazolam bedtime dose. 5. Patient didn't like the RIP SAW OPERATOR side effects of MS Contin will try oxycontin DEBBIE BELL MD Mar 08, 2017 12:17
--- NOTE | 2017-03-08 12:19 | Pre-Procedure Progress Note ---
Pre-Procedure Progress Note H&P Reviewed The H&P was reviewed, patient examined and no changes noted. Date H&P Reviewed: Mar 08, 2017 Time H&P Reviewed: 09:00 Pre-Procedure Diagnosis: Left axillary lymphadenopathy. Ultrasound-guided biopsy to be performed. JESSICA SHERMAN MD Mar 08, 2017 12:19
--- NOTE | 2017-03-08 12:20 | Diagnostic Imaging Report ---
EXAMINATION: US-guided core biopsy-axilla. INDICATION: Left axillary lymphadenopathy. Current history and physical and other medical records are reviewed prior to the procedure. CONSENT: Informed consent was obtained from the patient. The risks, benefits, potential complications and alternatives were reviewed and all questions answered to the patient's satisfaction. The patient's vital signs, cardiac rhythm, and pulse oximetry with observed throughout the procedure by qualified nursing personnel. Sedation/medications: none. FINDINGS: Left axillary lymphadenopathy. PROCEDURE: After maximal sterile barrier technique preparation and draping, 1% lidocaine was utilized for local anesthesia. With the patient in supine position, and via anterior approach, a 13-gauge guide needle is introduced into the left axillary enlarged lymph nodes mass under live ultrasound guidance. After confirming adequate positioning with saved ultrasound images, multiple 14 gauge core biopsy specimens were obtained. The patient tolerated the procedure well with no immediate complications. IMPRESSION: Successful US-guided core biopsy of left axillary enlarged lymph nodes mass. Dictated by: Dictated on workstation # [id number]
--- NOTE | 2017-03-08 13:21 | Occupational Ther Daily Note ---
OT Current Status-Daily Note Subjective Pt sitting in chair, agrees to treatment. Pt reports 5/10 left LE pain. Mental Status/Objective Functional [place] Measure 0=Not Assessed/NA 4=Minimal Assistance 1=Total Assistance 5=Supervision or Setup 2=Maximal Assistance 6=Modified [place] 3=Moderate Assistance 7=Complete [place] ADL-Treatment Pt sit to stand with modified independence. Gait to restroom with FWW. Pt demonstrates ability to perform toilet transfer with modified independence using grab bars for safety. Pt stood at sink to shave with modified independence. Gait to shower room with FWW, no LOB noted. Reviewed tub transfer using extended shower bench. Pt able to complete transfer with modified independence using grab bar for safety. Discussed home safety and walker use. Pt demonstrated ability to retrieve cup from cabinet and fill with water at sink without LOB. Pt practiced retrieving items from shelves and drawers at various heights. Pt able to complete without assistance and no LOB. Uses FWW for balance. Pt returned to chair with modified independence. Pt sitting in chair with needs met after session. Functional [place] Measure 0=Not Assessed/NA 4=Minimal Assistance 1=Total Assistance 5=Supervision or Setup 2=Maximal Assistance 6=Modified [place] 3=Moderate Assistance 7=Complete IndependenceIRFPAI Quality Coding Scale 6 Independent with activity with or without an assistive device 5 Patient requires set up or clean up by helper. Patient completes activity by themselves 4 Supervision or touching assist (CGA). [place] provide cues , steadying assist 3 The helper provides less than half the effort to complete the activity 2 The helper provides more than half the effort to complete the activity 1 Dependent. The helper does all the effort to complete an activity 7 Patient refused to complete or attempt activity 9 The patient did not perform the activity before the current illness or injury 88 Not attempted due to Medical conditions or safety concerns OT Short Term Goals Short Term Goals Time Frame: Mar 10, 2017 Bathing(FIM): 5 Lower Body Dressing(FIM): 5 Toileting(FIM): 5 Toilet/Commode Transfer(FIM): 5 Additional Short Term Goals: 1-Demonstrate ADL Tasks, 2-Verbalize Understanding , 3-ImproveStrength/David 1=Demonstrate adherence to instructed precautions during ADL tasks. 2=Patient will verbalize/demonstrate understanding of assistive devices/ modifications for ADL. 3=Patient will improve strength/tolerance for activity to enable patient to perform ADL's. OT Nursing Home Goals Credit Reporter Goals Time Frame: March 24, 2017 Eating (FIM): 6 Eating (QC): 6 Groomin Oral Hygiene (QC): 6 Bathing(FIM): 6 Shower/Bathe Self (QC): 6 Upper Body Dressing(FIM): 6 Upper Body Dressing (QC): 6 Lower Body Dressing(FIM): 6 Lower Body Dressing (QC): 6 On/Off Footwear (QC): 6 Toileting(FIM): 6 Toileting Hygiene (QC): 6 Toilet/Commode Transfer(FIM): 6 Toilet/Commode Transfer (QC): 6 Shower Transfer(FIM): 6 Additional Goals: 1-Demonstrate ADL Tasks, 2-Verbalize Understanding, 3- ImproveStrength/David 1=Demonstrate adherence to instructed precautions during ADL tasks. 2=Patient will verbalize/demonstrate understanding of assistive devices/ modifications for ADL. 3=Patient will improve strength/tolerance for activity to enable patient to perform ADL's. OT Education/Plan Problem List/Assessment Pt admitted secondary to left femur fracture s/p TFN. Pt demonstrates decreased mobility and ADL functioning. Pt to benefit from skilled OT intervention for ADL training, transfers, strengthening, adaptive equipment education, and home safety education to maximize level of function and allow safe return home. Discharge Recommendations Plan/Recommendations: Continue POC Treatment Plan/Plan of Care Patient would benefit from OT for education, treatment and training to promote independence in ADL's, mobility, safety and/or upper extremity function for ADL' s. Plan of Care: ADL Retraining, Functional Mobility, Group Exercise/Act as Ind, UE Funct Exercise/Act Treatment Duration: March 24, 2017 Visits Per Week: 10-12 Minutes/Day (M-F): 60-90 Minutes/Day (Sat/Trent): PRN Agreement: Yes Rehab Potential: Fair Time/GCodes Start Time: 11:40 Stop Time: 12:10 Total Time Billed (hr/min): 30 Billed Treatment Time 1 visit, ADLx2(30minutes) CHRIS MEADE OT Mar 08, 2017 13:20
--- NOTE | 2017-03-08 14:09 | Physical Therapy Daily Note ---
PT Daily Note-Current Subjective Pt. agrees to rx and states he feels like he may be ready to go home Thurs. Sister present and agreeable Pain Numeric Pain Scale: 3 Location: Left Location Body Site: Hip Pain Description: Ache Mental Status Patient Orientation: Normal For Age Transfers Functional [place] Measure 0=Not Assessed/NA 4=Minimal Assistance 1=Total Assistance 5=Supervision or Setup 2=Maximal Assistance 6=Modified [place] 3=Moderate Assistance 7=Complete IndependenceIRFPAI Quality Coding Scale 6 Independent with activity with or without an assistive device 5 Patient requires set up or clean up by helper. Patient completes activity by themselves 4 Supervision or touching assist (CGA). [place] provide cues , steadying assist 3 The helper provides less than half the effort to complete the activity 2 The helper provides more than half the effort to complete the activity 1 Dependent. The helper does all the effort to complete an activity 7 Patient refused to complete or attempt activity 9 The patient did not perform the activity before the current illness or injury 88 Not attempted due to Medical conditions or safety concerns all TRFs Mod I sup to sit and sit to stand Gait Training Gait Assistive Device: FWW 175ft x 2 Mod I Exercises Supine Ex: Ankle pumps, Quad Set, Rolling, Lower trunk rotation, Short Arc Quads, Scooting, Straight leg raise, Hip abd/add Supine Reps: 12 Standing: Hip Abduction, Heel/toe raises, Marching, Mini squats Standing Reps: 12 Assessment Current Status: Good Progress meets goals PT Short Term Goals Short Term Goals Time Frame: Mar 10, 2017 Gait (FIM): 5 Gait Distance Comment: 250' Gait Level of Assist: 5 Gait Assistive Device: FWW PT Chcf Goals Chcf Goals PT Chcf Goals Time Frame: March 24, 2017 Transfers (B,C,W/C) (FIM): 6 Sit to Lying (QC): 6 Lying-Sitting on Side/Bed(QC): 6 Sit to Stand (QC): 6 Rollin Roll Left to Right (QC): 6 Car Transfer (QC): 4 Gait (FIM): 6 Distance: 300' Walk 10 feet (QC): 6 Walk 10ft-Uneven Surface(QC): 6 Walk 50ft with 2 Turns (QC): 6 Walk 150 ft (QC): 6 Gait Level of Assist: 6 Gait Assistive Device: FWW Stairs (FIM): 5 # of Steps: 12 1 Step (curb) (QC): 4 4 Steps (QC): 4 12 Steps (QC): 4 Stairs Level Of Assist: 5 Picking up an Object (QC): 88 PT Plan Treatment/Plan Treatment Plan: Continue Plan of Care Treatment Plan: Bed Mobility, Education, Functional Activity David, Functional Strength, Group Therapy, Gait, Safety, Therapeutic Exercise, Transfers Treatment Duration: March 24, 2017 Visits Per Week: 10-11 Minutes/Day (M-F): 60-90 Minutes/Day (Sat/Trent): 15-30 Safety Risks/Education Patient Education: Gait Training, Transfer Techniques Teaching Recipient: Patient Teaching Methods: Demonstration, Discussion Response to Teaching: Verbalize Understanding, Return Demonstration Time/GCodes Time In: 1330 Time Out: 1400 Total Billed Treatment Time: 30 Total Billed Treatment 1,GT15,EX15 G Codes Necessary: SOHAIL Banuelos APPLICATION ARCHITECT MANAGER Mar 08, 2017 14:09
--- NOTE | 2017-03-08 15:43 | Cardiology Progress Note ---
Cardiology SOAP Progress Note Subjective: No cardiac complaints. Objective: I&O/Vital Signs Vital Sign - Last 12Hours 03/08/17 03/08/17 05:00 08:04 Temp 98.0 Pulse 60 84 Resp 18 B/P (MAP) 118/67 137/72 Pulse Ox 96 O2 Delivery Room Air Room Air Intake and Output 03/08/17 00:00 Intake Total 720 ml Output Total 600 ml Balance 120 ml Weight (Pounds): 167 Weight (Ounces): 0.0 Weight (Calculated Kilograms): [id number] Constitutional: No appears stated age, No AAO x 3, No apparent distress, No PERRL, No well-developed, No well-nourished, No other Respiratory: No accessory muscle use, No respiratory distress, No chest tender , No chest expansion is symmetric, No chest is bilaterally symmetric, No lungs clear to percussion, No lungs clear to auscultation, No crackles, No rhonchi, No rales, No stridor, No wheezing, No pleural rub, No other Cardiovascular: No regular rate-rhythm, No irregularly irregular, No extra beats, No parasternal heave is noted, No JVD, No edema, No bradycardia, No tachycardia, No point of maximal impulse, No cardiac thrills are palpable, No S1 and S2, No gallop/S3, No gallop/S4, No diastolic murmur, No systolic murmur, No friction rub, No click, No other Gastrointestional: No tender, No soft, No round, No distended, No pulsatile mass, No organomegaly, No guarding, No rebound, No tenderness, No hernia, No mass, No audible bowel sounds, No abnormal bowel sounds, No abdominal bruits, No spleenomegaly, No other Extremities: No normal range of motion, No non-tender, No normal inspection, No pedal edema, No calf tenderness, No normal capillary refill, No pelvis stable , No calf tenderness, No inflammation, No pedal edema, No slow capillary refill , No swelling, No other, No abrasion, No clubbing, No cyanosis, No ecchymosis, No laceration, No no lower extremity edema bilateral, No significant edema, No tenderness, No wound Neurologic/Psychiatric: No separations scientist II-XII nml as tested, No no motor/sensory deficits, No alert, No normal mood/affect, No oriented x 3, No abnormal cerebellar tests, No abnormal separations scientist II-XII, No abnormal gait, No aphasia, No EOM palsy, No facial droop, No motor weakness, No sensory deficit, No depressed affect, No disoriented x 3, No other, No grossly intact, No power is 5/5 both on sides Results/Procedures: Labs Laboratory Tests 03/08/17 06:15: White Blood Count 3.6L, Red Blood Count 4.03L, Hemoglobin 12.3L, Hematocrit 36L , Mean Corpuscular Volume 89, Mean Corpuscular Hemoglobin 31, Mean Corpuscular Hemoglobin Concent 34, Red Cell Distribution Width 12.6, Platelet Count 352, Mean Platelet Volume 9.3, Neutrophils (%) (Auto) 51, Lymphocytes (%) (Auto) 18, Monocytes (%) (Auto) 26H, Eosinophils (%) (Auto) 5, Basophils (%) (Auto) 1, Neutrophils # (Auto) 1.8, Lymphocytes # (Auto) 0.7L, Monocytes # (Auto) 0.9, Eosinophils # (Auto) 0.2, Basophils # (Auto) 0.0, Prothrombin Time 13.3, INR Comment 1.0, Activated Partial Thromboplast Time 33, Sodium Level 137, Potassium Level 4.6, Chloride Level 105, Carbon Dioxide Level 24, Anion Gap 8, Blood Urea Nitrogen 21H, Creatinine 1.18, Estimat Glomerular Filtration Rate > 60, BUN/Creatinine Ratio 18, Glucose Level 90, Calcium Level 9.1, Total Bilirubin 1.1H, Aspartate Amino Transf (AST/SGOT) 63H, Alanine Aminotransferase (ALT/SGPT) 44, Alkaline Phosphatase 225H, Total Protein 5.7L, Albumin 2.9L A/P: Assessment/Dx: Pathological fracture, history of CAD and SC, Ischemic Cardiomyopathy Plan: Nuclear stress test on . Continue current therapy for CAD and ischemic Cardiomyopathy. Thank you for your consultation. Please call me if you have any questions. Sohan Fall MD, FACP, FACC, FSCAI, FHRS, CCDS Interventional Cardiology Cardiac Electrophysiology Vascular Medicine and Endovascular Interventions Sal FALL MD Mar 08, 2017 3:43 pm
[2017-03-08 19:16] VITALS: BP 118/81
--- NOTE | 2017-03-08 19:22 | PM & R (SOAP) Progress Note ---
Subjective Subjective/Events-last exam Patient was seen in his room this AM Patient Modified Independent for transfers Pain control better Discussed case with RN earlier Patient c/o insomnia DR Vizcaino has rxd Appreciate his note Appreciate Dr Méndez note Lymph node biopsy completed by IR. Objective Exam Last Set of Vital Signs Vital Signs Date Time Temp Pulse Resp B/P (MAP) Pulse Ox O2 Delivery O2 Flow Rate FiO2 03/08/17 08:04 84 137/72 Room Air 03/08/17 05:00 98.0 18 96 03/03/17 14:06 2.00 Capillary Refill : Less Than 3 Seconds I&O Intake and Output 03/08/17 00:00 Intake Total 1120 ml Output Total 1200 ml Balance -80 ml Intake Oral 1120 ml Output Urine Total 1200 ml General: Alert, Oriented X3, Cooperative, No Acute Distress HEENT: Atraumatic, PERRLA Neck: Supple, No JVD Lungs: Clear to Auscultation Heart: Regular Rate Abdomen: Normal Bowel Sounds, Soft, No Tenderness Extremities: Other (incision covered with island dressing left hip) Neuro: Other (Proximal weakness left hip) Results Lab Laboratory Tests 03/08/17 06:15: White Blood Count 3.6L, Red Blood Count 4.03L, Hemoglobin 12.3L, Hematocrit 36L , Mean Corpuscular Volume 89, Mean Corpuscular Hemoglobin 31, Mean Corpuscular Hemoglobin Concent 34, Red Cell Distribution Width 12.6, Platelet Count 352, Mean Platelet Volume 9.3, Neutrophils (%) (Auto) 51, Lymphocytes (%) (Auto) 18, Monocytes (%) (Auto) 26H, Eosinophils (%) (Auto) 5, Basophils (%) (Auto) 1, Neutrophils # (Auto) 1.8, Lymphocytes # (Auto) 0.7L, Monocytes # (Auto) 0.9, Eosinophils # (Auto) 0.2, Basophils # (Auto) 0.0, Prothrombin Time 13.3, INR Comment 1.0, Activated Partial Thromboplast Time 33, Sodium Level 137, Potassium Level 4.6, Chloride Level 105, Carbon Dioxide Level 24, Anion Gap 8, Blood Urea Nitrogen 21H, Creatinine 1.18, Estimat Glomerular Filtration Rate > 60, BUN/Creatinine Ratio 18, Glucose Level 90, Calcium Level 9.1, Total Bilirubin 1.1H, Aspartate Amino Transf (AST/SGOT) 63H, Alanine Aminotransferase (ALT/SGPT) 44, Alkaline Phosphatase 225H, Total Protein 5.7L, Albumin 2.9L Assessment/Plan Assessment Pathological left femur FRX s/p ORIF DR Brush HX of laryngeal Ca DR Alaniz following HTN Pain management Recent episode of hyperkalemia S/P lymph node biopsy Plan Continue PT/OT Pain management-pain control much improved with MS CONtin F/U with DR Vizcaino and [place] and Ortho as per their schedule F/U re Path report left femur Recheck Labs-See orders-done Team Conference [facility] 03/09/17. Treat Insomnia -done TYRONE COLEMAN MD Mar 08, 2017 19:22
[2017-03-08] MEDS: ATORVASTATIN 40 MG (LIPITOR) TABLET PO SCH (20:00)
[2017-03-08] MEDS: FAMOTIDINE 20 MG (PEPCID) TABLET PO SCH (20:00)
[2017-03-08] MEDS: oxyCODONE ER 10 MG (OxyCONTIN CR) TAB PO SCH (20:01)
[2017-03-08] MEDS: ALPRAZolam 0.25 MG (XANAX) TAB PO PRN (21:37)
[2017-03-09] MEDS: oxyCODONE/APAP 5/325MG (PERCOCET 5) TABLET PO PRN ×2 (00:59→05:19)
[2017-03-09 05:00] VITALS: BP 135/72
[2017-03-09] MEDS: LEVOTHYROXINE 100 MCG (LEVOTHROID) TAB PO SCH (05:19)
[2017-03-09] MEDS: amLODIPine 5 MG (NORVASC) TAB PO SCH (08:40)
[2017-03-09] MEDS: lisINopril 20 MG (ZESTRIL) TAB PO SCH (08:40)
[2017-03-09] MEDS: ASPIRIN 81 MG CHEW (CHILDREN'S ASA) PO SCH (08:40)
[2017-03-09] MEDS: oxyCODONE ER 10 MG (OxyCONTIN CR) TAB PO SCH ×2 (08:40→20:42)
[2017-03-09] MEDS: BISACODYL 5 MG (DULCOLAX) TABLET PO SCH (08:40)
--- NOTE | 2017-03-09 10:02 | Physical Therapy Daily Note ---
PT Daily Note-Current Subjective Pt. states he is ready to go home on (tomorrow) States he slept a little better last night. Still comments that his hip gets so stiff so quickly Pain Numeric Pain Scale: 2 Location: Left Location Body Site: Hip Mental Status Patient Orientation: Normal For Age Transfers Functional [place] Measure 0=Not Assessed/NA 4=Minimal Assistance 1=Total Assistance 5=Supervision or Setup 2=Maximal Assistance 6=Modified [place] 3=Moderate Assistance 7=Complete IndependenceIRFPAI Quality Coding Scale 6 Independent with activity with or without an assistive device 5 Patient requires set up or clean up by helper. Patient completes activity by themselves 4 Supervision or touching assist (CGA). [place] provide cues , steadying assist 3 The helper provides less than half the effort to complete the activity 2 The helper provides more than half the effort to complete the activity 1 Dependent. The helper does all the effort to complete an activity 7 Patient refused to complete or attempt activity 9 The patient did not perform the activity before the current illness or injury 88 Not attempted due to Medical conditions or safety concerns Transfers (B, C, W/C) (FIM): 6 Scootin Rollin Roll Left to Right (QC): 6 Supine to/from Sit: 6 Sit to/from Stand: 6 Sit to Lying (QC): 6 Sit to Stand (QC): 6 Chair/[id number] Xfer(QC): 6 Bed to/from Chair: 6 Weight Bearing Weight Bearing Restriction: Weight Bearing/Tolerated Gait Training Does the Patient Walk?: Yes Gait (FIM): 6 Distance (FIM): 3=150 ft (400x2) Walk 10 feet (QC): 6 Walk 50 ft with 2 Turns(QC): 6 Walk 150 ft (QC): 6 Walking 10ft/uneven surface-QC: 6 Gait Level of Assist: 6 Gait Persons Needed: 0 Gait Assistive Device: FWW slow, some kyphosis Stair Training Stair Training: Handrails/: 2 handrails Stairs (FIM): 6 #of Steps: 12 1 Step (curb) (QC): 6 4 Steps (QC): 6 12 Steps (QC): 6 Stairs: Pattern: Step to Level of Assist: 6 needs assist to bring FWW up/down steps only Exercises Supine Ex: Ankle pumps, Quad Set, Rolling, Glut sets, Heel Slides, Short Arc Quads, Scooting, Straight leg raise (w assist), Hip abd/add Supine Reps: 15 Standing: Hip Abduction, Hamstring curls, Heel/toe raises, Mini squats, Sit to Stand Standing Reps: 12 NuStep Minutes: 10 NuStep Workload: 2 Assessment Current Status: Excellent Progress progressed to up ad marquita status PT Short Term Goals Short Term Goals Time Frame: Mar 10, 2017 Gait (FIM): 5 (4-25 at 6) Gait Distance Comment: 250' Gait Level of Assist: 5 Gait Assistive Device: FWW PT Intermediate Goals Form Setter Steel Forms Goals PT Intermediate Goals Time Frame: March 24, 2017 Transfers (B,C,W/C) (FIM): 6 Sit to Lying (QC): 6 Lying-Sitting on Side/Bed(QC): 6 Sit to Stand (QC): 6 Rollin Roll Left to Right (QC): 6 Car Transfer (QC): 4 Gait (FIM): 6 Distance: 300' Walk 10 feet (QC): 6 Walk 10ft-Uneven Surface(QC): 6 Walk 50ft with 2 Turns (QC): 6 Walk 150 ft (QC): 6 Gait Level of Assist: 6 Gait Assistive Device: FWW Stairs (FIM): 5 # of Steps: 12 1 Step (curb) (QC): 4 4 Steps (QC): 4 12 Steps (QC): 4 Stairs Level Of Assist: 5 Picking up an Object (QC): 88 PT Plan Treatment/Plan Treatment Plan: Continue Plan of Care Treatment Plan: Bed Mobility, Education, Functional Activity David, Functional Strength, Group Therapy, Gait, Safety, Therapeutic Exercise, Transfers Treatment Duration: March 24, 2017 Visits Per Week: 10-11 Minutes/Day (M-F): 60-90 Minutes/Day (Sat/Trent): 15-30 Safety Risks/Education Patient Education: Gait Training, Transfer Techniques, Steps, Correct Positioning, Disease Process, Safety Issues Teaching Recipient: Patient Teaching Methods: Demonstration, Discussion Response to Teaching: Verbalize Understanding, Return Demonstration Time/GCodes Time In: 900 Time Out: 1000 Total Billed Treatment Time: 60 Total Billed Treatment 1,EX30m,FA30m G Codes Necessary: SOHAIL Banuelos PTA Mar 09, 2017 10:02
--- NOTE | 2017-03-09 10:17 | Occupational Ther Daily Note ---
OT Current Status-Daily Note Subjective Pt sitting EOB, agrees to treatment. Pt states he slept a little better last night. Pt reports 4/10 pain in left LE. Pt states he would like to go home tomorrow. Mental Status/Objective Functional [place] Measure 0=Not Assessed/NA 4=Minimal Assistance 1=Total Assistance 5=Supervision or Setup 2=Maximal Assistance 6=Modified [place] 3=Moderate Assistance 7=Complete [place] ADL-Treatment Pt retrieved clothing from closet without assistance using FWW for balance. Gait to restroom with FWW, no LOB noted. Pt doffed clothing with modified independence using adaptive equipment to doff socks and shoes. Transfer to walk in shower with modified independence. Pt used shower bench and long handled sponge during bathing. Pt able to wash/dry all areas with modified independence. RN present to change bandages after shower. Don pullover shirt with modified independence. Pt donned underwear and pants with modified independence. Assist required to don DAVID hose. Pt donned socks with modified independence using sock aid. Donned shoes with modified independence using long handled shoe horn. Pt stood at sink for grooming. Pt shaved and completed oral care with modified independence. Pt demonstrated ability to perform toilet transfer with modified independence. Pt states he has been getting up to restroom and completing toileting without assistance. Pt transferred to chair with modified independence. Pt sitting in chair with needs met and RN present after session. Functional [place] Measure 0=Not Assessed/NA 4=Minimal Assistance 1=Total Assistance 5=Supervision or Setup 2=Maximal Assistance 6=Modified [place] 3=Moderate Assistance 7=Complete IndependenceIRFPAI Quality Coding Scale 6 Independent with activity with or without an assistive device 5 Patient requires set up or clean up by helper. Patient completes activity by themselves 4 Supervision or touching assist (CGA). [place] provide cues , steadying assist 3 The helper provides less than half the effort to complete the activity 2 The helper provides more than half the effort to complete the activity 1 Dependent. The helper does all the effort to complete an activity 7 Patient refused to complete or attempt activity 9 The patient did not perform the activity before the current illness or injury 88 Not attempted due to Medical conditions or safety concerns Eating (FIM): 7 (Pt reports feeding self, cutting food, and managing containers without assistance. Does not wear his dentures.) Eating (QC): 6 Grooming (FIM): 6 Oral Hygiene (QC): 6 Bathing (FIM): 6 Shower/Bathe Self (QC): 6 Upper Body (FIM): 6 Upper Body Dressing (QC): 6 Lower Body Dressing (FIM): 5 (set up for DAVID hose) Lower Body Dressing (QC): 5 (set up) On/Off Footwear (QC): 6 (with adaptive equipment) Toileting (FIM): 6 Toileting Hygiene (QC): 6 Toilet/Commode Transfer (FIM): 6 Toilet Transfer (QC): 6 Shower Transfer(FIM): 6 OT Short Term Goals Short Term Goals Time Frame: Mar 10, 2017 Bathing(FIM): 5 Lower Body Dressing(FIM): 5 Toileting(FIM): 5 Toilet/Commode Transfer(FIM): 5 Additional Short Term Goals: 1-Demonstrate ADL Tasks, 2-Verbalize Understanding , 3-ImproveStrength/David 1=Demonstrate adherence to instructed precautions during ADL tasks. 2=Patient will verbalize/demonstrate understanding of assistive devices/ modifications for ADL. 3=Patient will improve strength/tolerance for activity to enable patient to perform ADL's. OT Nursing Home Goals Manager Integrity Goals Time Frame: March 24, 2017 Eating (FIM): 6 (met 03/09/17) Eating (QC): 6 (6-MET) Groomin (met 03/09/17) Oral Hygiene (QC): 6 (6-MET) Bathing(FIM): 6 (met 03/09/17) Shower/Bathe Self (QC): 6 (6-MET) Upper Body Dressing(FIM): 6 (met 03/09/17) Upper Body Dressing (QC): 6 (6-MET) Lower Body Dressing(FIM): 6 (not met) Lower Body Dressing (QC): 6 (5-not met) On/Off Footwear (QC): 6 (6-MET) Toileting(FIM): 6 (met 03/09/17) Toileting Hygiene (QC): 6 (6-MET) Toilet/Commode Transfer(FIM): 6 (met 03/09/17) Toilet/Commode Transfer (QC): 6 (6-MET) Shower Transfer(FIM): 6 (met 03/09/17) Additional Goals: 1-Demonstrate ADL Tasks, 2-Verbalize Understanding, 3- ImproveStrength/David 1=Demonstrate adherence to instructed precautions during ADL tasks. 2=Patient will verbalize/demonstrate understanding of assistive devices/ modifications for ADL. 3=Patient will improve strength/tolerance for activity to enable patient to perform ADL's. OT Education/Plan Problem List/Assessment Pt admitted secondary to left femur fracture s/p TFN. Pt demonstrates decreased mobility and ADL functioning. Pt to benefit from skilled OT intervention for ADL training, transfers, strengthening, adaptive equipment education, and home safety education to maximize level of function and allow safe return home. Discharge Recommendations Plan/Recommendations: Continue POC Treatment Plan/Plan of Care Patient would benefit from OT for education, treatment and training to promote independence in ADL's, mobility, safety and/or upper extremity function for ADL' s. Plan of Care: ADL Retraining, Functional Mobility, Group Exercise/Act as Ind, UE Funct Exercise/Act Treatment Duration: March 24, 2017 Visits Per Week: 10-12 Minutes/Day (M-F): 60-90 Minutes/Day (Sat/Trent): PRN Agreement: Yes Rehab Potential: Fair Time/GCodes Start Time: 08:00 Stop Time: 09:00 Total Time Billed (hr/min): 60 Billed Treatment Time 1 visit, ADLx4(60minutes) CHRIS MEADE OT Mar 09, 2017 10:17
--- NOTE | 2017-03-09 13:00 | Occupational Ther Daily Note ---
OT Current Status-Daily Note Subjective Pt sitting in chair, agrees to treatment. Mental Status/Objective Functional [place] Measure 0=Not Assessed/NA 4=Minimal Assistance 1=Total Assistance 5=Supervision or Setup 2=Maximal Assistance 6=Modified [place] 3=Moderate Assistance 7=Complete [place] ADL-Treatment Functional [place] Measure 0=Not Assessed/NA 4=Minimal Assistance 1=Total Assistance 5=Supervision or Setup 2=Maximal Assistance 6=Modified [place] 3=Moderate Assistance 7=Complete IndependenceIRFPAI Quality Coding Scale 6 Independent with activity with or without an assistive device 5 Patient requires set up or clean up by helper. Patient completes activity by themselves 4 Supervision or touching assist (CGA). [place] provide cues , steadying assist 3 The helper provides less than half the effort to complete the activity 2 The helper provides more than half the effort to complete the activity 1 Dependent. The helper does all the effort to complete an activity 7 Patient refused to complete or attempt activity 9 The patient did not perform the activity before the current illness or injury 88 Not attempted due to Medical conditions or safety concerns Other Treatment Pt sit to stand with modified independence. Gait to therapy gym with FWW, no LOB noted. Pt performed bilateral UE exercises to promote increased strength needed for ADLs and transfers. Pt performed shoulder flexion, forward press, biceps curls, and triceps extension exercises x20 reps with 2# dowel gavin. Brief rest breaks between exercises. Arm bike [id number] to increase overall strength and activity tolerance needed for functional tasks. Pt performed activity with slow pace and no rest breaks. Pt returned to room, transferred to chair with needs met after session. OT Short Term Goals Short Term Goals Time Frame: Mar 10, 2017 Bathing(FIM): 5 Lower Body Dressing(FIM): 5 Toileting(FIM): 5 Toilet/Commode Transfer(FIM): 5 Additional Short Term Goals: 1-Demonstrate ADL Tasks, 2-Verbalize Understanding , 3-ImproveStrength/David 1=Demonstrate adherence to instructed precautions during ADL tasks. 2=Patient will verbalize/demonstrate understanding of assistive devices/ modifications for ADL. 3=Patient will improve strength/tolerance for activity to enable patient to perform ADL's. OT Senior Living Goals Five Piece Expansion Maker Hand Goals Time Frame: March 24, 2017 Eating (FIM): 6 (met 03/09/17) Eating (QC): 6 (6-MET) Groomin (met 03/09/17) Oral Hygiene (QC): 6 (6-MET) Bathing(FIM): 6 (met 03/09/17) Shower/Bathe Self (QC): 6 (6-MET) Upper Body Dressing(FIM): 6 (met 03/09/17) Upper Body Dressing (QC): 6 (6-MET) Lower Body Dressing(FIM): 6 (not met) Lower Body Dressing (QC): 6 (5-not met) On/Off Footwear (QC): 6 (6-MET) Toileting(FIM): 6 (met 03/09/17) Toileting Hygiene (QC): 6 (6-MET) Toilet/Commode Transfer(FIM): 6 (met 03/09/17) Toilet/Commode Transfer (QC): 6 (6-MET) Shower Transfer(FIM): 6 (met 03/09/17) Additional Goals: 1-Demonstrate ADL Tasks, 2-Verbalize Understanding, 3- ImproveStrength/David 1=Demonstrate adherence to instructed precautions during ADL tasks. 2=Patient will verbalize/demonstrate understanding of assistive devices/ modifications for ADL. 3=Patient will improve strength/tolerance for activity to enable patient to perform ADL's. OT Education/Plan Problem List/Assessment Pt admitted secondary to left femur fracture s/p TFN. Pt demonstrates decreased mobility and ADL functioning. Pt to benefit from skilled OT intervention for ADL training, transfers, strengthening, adaptive equipment education, and home safety education to maximize level of function and allow safe return home. Discharge Recommendations Plan/Recommendations: Continue POC Treatment Plan/Plan of Care Patient would benefit from OT for education, treatment and training to promote independence in ADL's, mobility, safety and/or upper extremity function for ADL' s. Plan of Care: ADL Retraining, Functional Mobility, Group Exercise/Act as Ind, UE Funct Exercise/Act Treatment Duration: March 24, 2017 Visits Per Week: 10-12 Minutes/Day (M-F): 60-90 Minutes/Day (Sat/Trent): PRN Agreement: Yes Rehab Potential: Fair Time/GCodes Start Time: 11:00 Stop Time: 11:30 Total Time Billed (hr/min): 30 Billed Treatment Time 1 visit, EXx2(30minutes) CHRIS MEADE OT Mar 09, 2017 13:00
--- NOTE | 2017-03-09 14:55 | Physical Therapy Daily Note ---
PT Daily Note-Current Subjective Pt up in chair, agreeable. Reports "low" pain in (L) LE but no pain rating provided. Anxious to go home tomorrow. Mental Status Patient Orientation: Person, Place, Time, Situation Transfers Functional Smyth Measure 0=Not Assessed/NA 4=Minimal Assistance 1=Total Assistance 5=Supervision or Setup 2=Maximal Assistance 6=Modified Smyth 3=Moderate Assistance 7=Complete IndependenceIRFPAI Quality Coding Scale 6 Independent with activity with or without an assistive device 5 Patient requires set up or clean up by helper. Patient completes activity by themselves 4 Supervision or touching assist (CGA). [place] provide cues , steadying assist 3 The helper provides less than half the effort to complete the activity 2 The helper provides more than half the effort to complete the activity 1 Dependent. The helper does all the effort to complete an activity 7 Patient refused to complete or attempt activity 9 The patient did not perform the activity before the current illness or injury 88 Not attempted due to Medical conditions or safety concerns Transfers (B, C, W/C) (FIM): 6 Scootin Roll Left to Right (QC): 6 Supine to/from Sit: 6 Sit to/from Stand: 6 Sit to Lying (QC): 6 Sit to Stand (QC): 6 Chair/Zbf-ue-Sdvop Xfer(QC): 6 Weight Bearing Weight Bearing Restriction: Weight Bearing/Tolerated Location Restriction: L LE Gait Training Does the Patient Walk?: Yes Distance (FIM): 3=150 ft Distance: 150 Walk 10 feet (QC): 6 Walk 50 ft with 2 Turns(QC): 6 Walk 150 ft (QC): 6 Gait Level of Assist: 6 Gait Persons Needed: 0 Gait Assistive Device: FWW Pt ambulates with slow, safe gait with decreased weight bearing on (L) LE. Wheelchair Training Does the Pt Use a Wheelchair?: No Exercises Supine Ex: Bridging, Quad Set, Glut sets, Heel Slides, Straight leg raise, Hip abd/add Supine Reps: 20 NuStep Minutes: 10 NuStep Workload: 3 Treatments Ther ex for functional strengthening. Returned to up ad marquita in room. Assessment Current Status: Excellent Progress Pt mod (I) with all functional mobility. PT Short Term Goals Short Term Goals Time Frame: Mar 10, 2017 Gait (FIM): 5 (4-25 at 6) Gait Distance Comment: 250' Gait Level of Assist: 5 Gait Assistive Device: FWW PT Hole Digger Goals Hole Digger Goals PT Intermediate Goals Time Frame: March 24, 2017 Transfers (B,C,W/C) (FIM): 6 (Goal met 03/09/17) Sit to Lying (QC): 6 (Goal met 03/09/17) Lying-Sitting on Side/Bed(QC): 6 (Goal met 03/09/17) Sit to Stand (QC): 6 (Goal met 03/09/17) Rollin (Goal met 03/09/17) Roll Left to Right (QC): 6 (Goal met 03/09/17) Car Transfer (QC): 4 Does the Patient Walk: Yes Gait (FIM): 6 (Goal met 03/09/17) Distance: 300' Walk 10 feet (QC): 6 (Goal met 03/09/17) Walk 10ft-Uneven Surface(QC): 6 Walk 50ft with 2 Turns (QC): 6 (Goal met 03/09/17) Walk 150 ft (QC): 6 (Goal met 03/09/17) Gait Level of Assist: 6 (Goal met 03/09/17) Gait Assistive Device: FWW Does the Pt use WC or Scooter?: No Stairs (FIM): 5 # of Steps: 12 1 Step (curb) (QC): 4 4 Steps (QC): 4 12 Steps (QC): 4 Stairs Level Of Assist: 5 Picking up an Object (QC): 88 PT Plan Problem List Problem List: Activity Tolerance, Functional Strength, Gait, Transfer Treatment/Plan Treatment Plan: Continue Plan of Care Treatment Plan: Bed Mobility, Education, Functional Activity David, Functional Strength, Group Therapy, Gait, Safety, Therapeutic Exercise, Transfers Treatment Duration: March 24, 2017 Visits Per Week: 10-11 Minutes/Day (M-F): 60-90 Minutes/Day (Sat/Trent): 15-30 Pt/Family Agrees w/Plan: Yes Time/GCodes Time In: 1315 Time Out: 1345 Total Billed Treatment Time: 30' Total Billed Treatment 1, Ex x 25' (Gait x 5') HERIBERTO COKER DPT Mar 09, 2017 14:54
--- NOTE | 2017-03-09 15:30 | PM & R (SOAP) Progress Note ---
Subjective Subjective/Events-last exam Patient was seen in his room this AM Patient Modified Independent for transfers.Appreciate DR Farr and Eleazar note and orders Objective Exam Last Set of Vital Signs Vital Signs Date Time Temp Pulse Resp B/P (MAP) Pulse Ox O2 Delivery O2 Flow Rate FiO2 03/09/17 05:00 98.7 63 20 135/72 98 Room Air 03/03/17 14:06 2.00 Capillary Refill : Less Than 3 Seconds I&O Intake and Output 03/09/17 00:00 Intake Total 790 ml Output Total 1300 ml Balance -510 ml Intake Oral 790 ml Output Urine Total 1300 ml General: Alert, Oriented X3, Cooperative, No Acute Distress HEENT: Atraumatic, PERRLA Neck: Supple, No JVD Lungs: Clear to Auscultation Heart: Regular Rate Abdomen: Normal Bowel Sounds, Soft, No Tenderness Extremities: Other (incision covered with island dressing left hip) Neuro: Other (Proximal weakness left hip) Results Lab Laboratory Tests 03/08/17 06:15: White Blood Count 3.6L, Red Blood Count 4.03L, Hemoglobin 12.3L, Hematocrit 36L , Mean Corpuscular Volume 89, Mean Corpuscular Hemoglobin 31, Mean Corpuscular Hemoglobin Concent 34, Red Cell Distribution Width 12.6, Platelet Count 352, Mean Platelet Volume 9.3, Neutrophils (%) (Auto) 51, Lymphocytes (%) (Auto) 18, Monocytes (%) (Auto) 26H, Eosinophils (%) (Auto) 5, Basophils (%) (Auto) 1, Neutrophils # (Auto) 1.8, Lymphocytes # (Auto) 0.7L, Monocytes # (Auto) 0.9, Eosinophils # (Auto) 0.2, Basophils # (Auto) 0.0, Prothrombin Time 13.3, INR Comment 1.0, Activated Partial Thromboplast Time 33, Sodium Level 137, Potassium Level 4.6, Chloride Level 105, Carbon Dioxide Level 24, Anion Gap 8, Blood Urea Nitrogen 21H, Creatinine 1.18, Estimat Glomerular Filtration Rate > 60, BUN/Creatinine Ratio 18, Glucose Level 90, Calcium Level 9.1, Total Bilirubin 1.1H, Aspartate Amino Transf (AST/SGOT) 63H, Alanine Aminotransferase (ALT/SGPT) 44, Alkaline Phosphatase 225H, Total Protein 5.7L, Albumin 2.9L Assessment/Plan Assessment Pathological left femur FRX s/p ORIF DR Brush HX of laryngeal Ca DR Alaniz following HTN Pain management Recent episode of hyperkalemia S/P lymph node biopsy Plan Continue PT/OT Pain management-pain control much improved with MS CONtin F/U with DR Vizcaino , Corbin ,Juan David and Ortho as per their schedule F/U re Path report left femur Recheck Labs-See orders-done. Treat Insomnia -done Team Conference held earlier today-See report for full functional update and POC Discharge set tentatively for tomorrow to home with family Will have F/u with PCP and Specialists on an outpatient basis TYRONE COLEMAN MD Mar 09, 2017 15:30
[2017-03-09 15:37] VITALS: BP 105/58
[2017-03-09] MEDS ORDERED: OXYC-471 PO ×2 (19:09)
[2017-03-09] MEDS ORDERED: OXC10TCR PO ×2 (19:09)
[2017-03-09] MEDS: ATORVASTATIN 40 MG (LIPITOR) TABLET PO SCH (20:42)
[2017-03-09] MEDS: ALPRAZolam 0.25 MG (XANAX) TAB PO PRN (20:42)
[2017-03-09] MEDS: FAMOTIDINE 20 MG (PEPCID) TABLET PO SCH (20:42)
[2017-03-10 06:00] VITALS: BP 127/66
[2017-03-10] MEDS: LEVOTHYROXINE 100 MCG (LEVOTHROID) TAB PO SCH (06:30)
--- NOTE | 2017-03-10 08:02 | PM & R (SOAP) Progress Note ---
Subjective Subjective/Events-last exam Patient was seen in his room today Patient Modified Independent for transfers Pain well controlled. Objective Exam Last Set of Vital Signs Vital Signs Date Time Temp Pulse Resp B/P (MAP) Pulse Ox O2 Delivery O2 Flow Rate FiO2 03/10/17 06:00 98.1 67 20 127/66 94 Room Air Capillary Refill : Less Than 3 Seconds I&O Intake and Output 03/10/17 00:00 Intake Total 1100 ml Output Total 1250 ml Balance -150 ml Intake Oral 1100 ml Output Urine Total 1250 ml # Voids 5 # Bowel Movements 1 General: Alert, Oriented X3, Cooperative, No Acute Distress HEENT: Atraumatic, PERRLA Neck: Supple, No JVD Lungs: Clear to Auscultation Heart: Regular Rate Abdomen: Normal Bowel Sounds, Soft, No Tenderness Extremities: Other (incision covered with island dressing left hip) Neuro: Other (Proximal weakness left hip) Results Lab Laboratory Tests 03/08/17 06:15: White Blood Count 3.6L, Red Blood Count 4.03L, Hemoglobin 12.3L, Hematocrit 36L , Mean Corpuscular Volume 89, Mean Corpuscular Hemoglobin 31, Mean Corpuscular Hemoglobin Concent 34, Red Cell Distribution Width 12.6, Platelet Count 352, Mean Platelet Volume 9.3, Neutrophils (%) (Auto) 51, Lymphocytes (%) (Auto) 18, Monocytes (%) (Auto) 26H, Eosinophils (%) (Auto) 5, Basophils (%) (Auto) 1, Neutrophils # (Auto) 1.8, Lymphocytes # (Auto) 0.7L, Monocytes # (Auto) 0.9, Eosinophils # (Auto) 0.2, Basophils # (Auto) 0.0, Prothrombin Time 13.3, INR Comment 1.0, Activated Partial Thromboplast Time 33, Sodium Level 137, Potassium Level 4.6, Chloride Level 105, Carbon Dioxide Level 24, Anion Gap 8, Blood Urea Nitrogen 21H, Creatinine 1.18, Estimat Glomerular Filtration Rate > 60, BUN/Creatinine Ratio 18, Glucose Level 90, Calcium Level 9.1, Total Bilirubin 1.1H, Aspartate Amino Transf (AST/SGOT) 63H, Alanine Aminotransferase (ALT/SGPT) 44, Alkaline Phosphatase 225H, Total Protein 5.7L, Albumin 2.9L Assessment/Plan Assessment Pathological left femur FRX s/p ORIF DR Brush HX of laryngeal Ca DR Alaniz following HTN Pain management Recent episode of hyperkalemia S/P lymph node biopsy Plan Discharge today to home with family today Pain control much improved with OXYcontin SR Will have F/u with PCP and Specialists on an outpatient basis See orders TYRONE COLEMAN MD Mar 10, 2017 08:02
[2017-03-10] MEDS ORDERED: REGADENOSON 0.4 MG/5 ML SYR (LEXISCAN) IV ONE (09:11)
[2017-03-10 09:23] VITALS: BP 132/71
[2017-03-10 09:25] VITALS: BP 125/64
[2017-03-10] MEDS: amLODIPine 5 MG (NORVASC) TAB PO SCH (10:38)
[2017-03-10] MEDS: lisINopril 20 MG (ZESTRIL) TAB PO SCH (10:38)
[2017-03-10] MEDS: BISACODYL 5 MG (DULCOLAX) TABLET PO SCH (10:38)
[2017-03-10] MEDS: ASPIRIN 81 MG CHEW (CHILDREN'S ASA) PO SCH (10:38)
[2017-03-10] MEDS: oxyCODONE ER 10 MG (OxyCONTIN CR) TAB PO SCH (10:39)
[2017-03-10 11:18] VITALS: BP 125/64
--- NOTE | 2017-03-10 14:37 | Therapy Team Discharge Summary ---
Therapy Discharge Summary Discharge Recommendations Date of Discharge Mar 10, 2017 at 11:18 Therapy D/C Recommendations: Home w/ Family Support Physical Therapy Patient came to rehab following a left femur fracture. Upon evaluation patient performed bed mobility with SBA except for supine <-> sit which was min assist, transfers CGA, he ambulated 200' with a rolling walker with CGA, and went up and down 4 steps using 2 handrails with CGA. Patient has been performing bed mobility and transfer training, balance and endurance training, functional strengthening, stair training, gait training, and education. 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 Now, patient performs bed mobility and transfers with mod I, ambulates 400' with a rolling walker ( including 50' with at least 2 turns of 90 degrees and 10' over an uneven surface ) with mod I, and can go up and down 12 steps using 2 handrails with mod I. Patient has been discharged from this facility and will be discharged from PT at this time. PT Completion Supervisor Goals Skilled Nursing Goals PT Completion Supervisor Goals Time Frame: March 24, 2017 Transfers (B,C,W/C) (FIM): 6 (Goal met 03/09/17) Roll Left to Right (QC): 6 (Goal met 03/09/17) Sit to Lying (QC): 6 (Goal met 03/09/17) Lying-Sitting on Side/Bed(QC): 6 (Goal met 03/09/17) Sit to Stand (QC): 6 (Goal met 03/09/17) Car Transfer (QC): 4 Does the Patient Walk: Yes Gait (FIM): 6 (Goal met 03/09/17) Distance: 300' Walk 10 feet (QC): 6 (Goal met 03/09/17) Walk 10ft-Uneven Surface(QC): 6 Walk 50ft with 2 Turns (QC): 6 (Goal met 03/09/17) Walk 150 ft (QC): 6 (Goal met 03/09/17) Gait Level of Assist: 6 (Goal met 03/09/17) Gait Assistive Device: FWW Does the Pt use WC or Scooter?: No Stairs (FIM): 5 # of Steps: 12 1 Step (curb) (QC): 4 4 Steps (QC): 4 12 Steps (QC): 4 Stairs Level Of Assist: 5 Picking up an Object (QC): 88 OT Completion Supervisor Goals Completion Supervisor Goals Time Frame: March 24, 2017 Eating (FIM): 6 (met 03/09/17) Eating (QC): 6 (6-MET) Oral Hygiene (QC): 6 (6-MET) Grooming(FIM): 6 (met 03/09/17) Bathing(FIM): 6 (met 03/09/17) Shower/Bathe Self (QC): 6 (6-MET) Upper Body Dressing(FIM): 6 (met 03/09/17) Upper Body Dressing (QC): 6 (6-MET) Lower Body Dressing(FIM): 6 (not met) Lower Body Dressing (QC): 6 (5-not met) On/Off Footwear (QC): 6 (6-MET) Toileting(FIM): 6 (met 03/09/17) Toileting Hygiene (QC): 6 (6-MET) Toilet/Commode Transfer(FIM): 6 (met 03/09/17) Toilet/Commode Transfer (QC): 6 (6-MET) Shower Transfer(FIM): 6 (met 03/09/17) Additional Goals: 1-Demonstrate ADL Tasks, 2-Verbalize Understanding, 3- ImproveStrength/David 1=Demonstrate adherence to instructed precautions during ADL tasks. 2=Patient will verbalize/demonstrate understanding of assistive devices/ modifications for ADL. 3=Patient will improve strength/tolerance for activity to enable patient to perform ADL's. LUMA HENDRIX PT Mar 10, 2017 14:37
--- NOTE | 2017-03-11 06:40 | STRESS TEST ---
DATE OF SERVICE: 03/10/2017 REFERRING PHYSICIAN: Dr. Hamzah Vizcaino. ATTENDING PHYSICIAN: Dr. Niko May. PERFORMING PHYSICIAN: Dr. Sohan Fall. DIAGNOSIS: History of coronary artery disease, mild shortness of breath. PROCEDURE DETAILS: The patient was brought to the stress lab after informed consent was taken. Lexiscan stress test was performed according to the protocol. Then 0.4 mg of Lexiscan was injected intravenously. Low-grade exercise was performed. Resting heart rate showed sinus rhythm with Q-waves in the inferior leads and a right bundle brunch patten in V1. Frequent PVCs were also noted. Maximum heart rate was 92 BPM and blood pressure was 214/150 mmHg. The patient did not have any chest pain during the stress test. Frequent PVCs were noted during the stress test. There were no significant ST changes noted during Lexiscan infusion. The stress test was stopped secondary to completion of protocol. Then, 10.36 mCi MIBI were given for rest imaging and 30.8 mCi MIBI were given for stress images. Review of the myocardial perfusion images showed a t.i.d. of 1.07. Ejection fraction of 18%. Dilated LV with end diastolic volume 179 mL and end systolic volume 146 mL. There is a severe large fixed defect in the inferior region. There is also a large moderate intensity reversible defect in the lateral and anterior territory. Severe inferior hypokinesis is also noted. SSS is 23, SRS is 21 and SDS is 2. CONCLUSION: 1. Pharmacological nuclear stress test is negative for ischemia. 2. 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 Significant evidence of ischemia in the lateral and anterior territories. 3. Severe LV systolic dysfunction. Dilated LV with severe inferior hypokinesis noted. 4. Clinical correlation is recommended. Job ID: [id number] DocumentID: [id number] Dictated Date: 03/10/2017 14:15:38 Truck Loader Date: 03/11/2017 03:31:38 Dictated By: HIRAL FALL MD
--- NOTE | 2017-03-14 13:15 | Therapy Team Discharge Summary ---
Therapy Discharge Summary Discharge Recommendations Date of Discharge Mar 10, 2017 at 11:18 Therapy D/C Recommendations: Home w/ Family Support Occupational Therapy Pt admitted to ARU following left femur fracture. On admission pt requiredSBA for UE ADLs, minimal assistance for transfers and bathing, and max assist for LE dressing. Skilled OT intervention focused on ADL training, transfers, strengthening, and adaptive equipment education. Pt made good progress with therapy and by discharge is completing ADLs and transfers with modified independence except LE dressing secondary to set up for DAVID hose. Pt has met all OT LTG except LE dressing. Pt discharged home. D/C ARU OT at this time. PT Group Home Goals Group Home Goals PT Group Home Goals Time Frame: March 24, 2017 Transfers (B,C,W/C) (FIM): 6 (Goal met 03/09/17) Roll Left to Right (QC): 6 (Goal met 03/09/17) Sit to Lying (QC): 6 (Goal met 03/09/17) Lying-Sitting on Side/Bed(QC): 6 (Goal met 03/09/17) Sit to Stand (QC): 6 (Goal met 03/09/17) Car Transfer (QC): 4 Does the Patient Walk: Yes Gait (FIM): 6 (Goal met 03/09/17) Distance: 300' Walk 10 feet (QC): 6 (Goal met 03/09/17) Walk 10ft-Uneven Surface(QC): 6 Walk 50ft with 2 Turns (QC): 6 (Goal met 03/09/17) Walk 150 ft (QC): 6 (Goal met 03/09/17) Gait Level of Assist: 6 (Goal met 03/09/17) Gait Assistive Device: FWW Does the Pt use WC or Scooter?: No Stairs (FIM): 5 # of Steps: 12 1 Step (curb) (QC): 4 4 Steps (QC): 4 12 Steps (QC): 4 Stairs Level Of Assist: 5 Picking up an Object (QC): 88 OT Group Home Goals Group Home Goals Time Frame: March 24, 2017 Eating (FIM): 6 (met 03/09/17) Eating (QC): 6 (6-MET) Oral Hygiene (QC): 6 (6-MET) Grooming(FIM): 6 (met 03/09/17) Bathing(FIM): 6 (met 03/09/17) Shower/Bathe Self (QC): 6 (6-MET) Upper Body Dressing(FIM): 6 (met 03/09/17) Upper Body Dressing (QC): 6 (6-MET) Lower Body Dressing(FIM): 6 (not met) Lower Body Dressing (QC): 6 (5-not met) On/Off Footwear (QC): 6 (6-MET) Toileting(FIM): 6 (met 03/09/17) Toileting Hygiene (QC): 6 (6-MET) Toilet/Commode Transfer(FIM): 6 (met 03/09/17) Toilet/Commode Transfer (QC): 6 (6-MET) Shower Transfer(FIM): 6 (met 03/09/17) Additional Goals: 1-Demonstrate ADL Tasks, 2-Verbalize Understanding, 3- ImproveStrength/David 1=Demonstrate adherence to instructed precautions during ADL tasks. 2=Patient will verbalize/demonstrate understanding of assistive devices/ modifications for ADL. 3=Patient will improve strength/tolerance for activity to enable patient to perform ADL's. CHRIS MEADE OT March 14, 2017 13:15
--- NOTE | 2017-03-16 09:52 | DISCHARGE SUMMARY ---
DATE OF SERVICE: 03/10/2017 HISTORY OF PRESENT ILLNESS: The patient is a 72-year-old white male who suffered a pathologic left femur fracture and is status post ORIF left femur by orthopedics. He was referred to inpatient rehabilitation unit to have comprehensive program of inpatient orthopedic rehabilitation prior to discharge home. Bone biopsy is pending. He does have a history of squamous cell carcinoma of the larynx, T2 N0 M0, status post radiation therapy along with concurrent weekly Cisplatin chemotherapy, completed all treatments 09/2005. There is a remote history of tobaccoism in the past, quit 12 years ago. He had increasing pain in his left thigh and he went to see his PCP, Dr. Vizcaino when he had the pathologic fracture as he was about to enter his physician's office. CT scanning of the chest and abdomen and pelvis did reveal multiple lymph nodes in the chest and abdomen, particularly in the periaortic chain. He has bilateral axillary adenopathy as well. Medical oncology has been consulted. He had been independent prior to this. PAST MEDICAL HISTORY: Cancer as per above. Hypertension, coronary artery disease. MEDICAL COURSE: The patient was followed by Dr. May and Charis while on rehab unit. He was seen in consultation by Dr. Brown. Ultrasound guided lymph node biopsy was done by interventional radiology. Report is pending. Pain management was done with longer acting pain medication provided. Medication for insomnia and anxiety was provided as well. The patient overall did well. His Galaviz catheter was discontinued and he was voiding. He was continent of bowel and bladder. CBC on 03/08 showed WBC 3.6, H and H 12.3/36, platelet count 352,000. Chemistry on 03/08 showed BUN 21. Bilirubin total is 1.1, alkaline phosphatase 225, AST 63, albumin 2.9, total protein 5.7. REHABILITATION COURSE: He was assessed by speech therapy upon admission to rehab unit, found to be functional, they signed off from their standpoint. OT notes: Upon admission, the patient required standby assist for body ADLs, min assist for transfers and bathing and max assist for lower body dressing. He had increased pain with movement and weight bearing. This improved with adjustment of his pain medications. His endurance improved with improved sleep. PT notes: Upon admission, the patient performed bed mobility with standby assist except for supine to sit which was min assist. He was transferred from [facility]. He ambulated 200 feet with a wheeled walker with contact guard and went up and down 4 steps using 2 handrails for contact guard. Upon discharge, the patient was modified independent for transfers and bed mobility with decreased pain, could ambulate 400 feet with a wheeled walker with decreased pain. The patient will have assistance from his family at home. DISCHARGE INSTRUCTIONS: The patient will have follow up with orthopedics and Dr. Brown and Dr. Vizcaino PCP as per their schedule. Continue current diet. DISCHARGE MEDICATIONS: 1. OxyContin 10 mg p.o. b.i.d. 2. Percocet 1 tablet p.o. q. 4 hours p.r.n. moderate pain. 3. Amlodipine 5 mg p.o. q. day. 4. Aspirin 81 mg p.o. q. day. 5. Levothyroxine 100 mcg p.o. q. day. 6. Lisinopril 40 mg p.o. q. day. 7. Pravastatin 80 mg p.o. q. bedtime. 8. Zantac 300 mg p.o. q. bedtime. 9. Xanax 0.25 mg p.o. q. bedtime p.r.n. insomnia. DISCHARGE DIAGNOSES: 1. Rehabilitation of ambulatory dysfunction secondary to pathologic fracture left femur status post open reduction internal fixation, orthopedics. 2. Bone metastasis. 3. Lymphadenopathy status post ultrasound guided lymph node biopsy, Dr. Theodore interventional radiology. 4. Hypertension with chronic kidney disease stage III. 5. Coronary artery disease, stable. 6. Ischemic cardiomyopathy. 7. Hypothyroidism status post radiation therapy and chemotherapy. 8. Situational anxiety improved with meds. 9. Gastroesophageal reflux disease on meds. 10. History of myocardial infarction, stable. 11. 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 12. History of tobaccoism. CONDITION AT DISCHARGE: Improved and stable. PROGNOSIS: Rehab prognosis appears good for some continued improvement at home, at least for the short term prognosis. terminologist prognosis appears more guarded. Job ID: [id number] DocumentID: [id number] Dictated Date: 03/15/2017 15:49:23 Correctional Medicine Physician Date: 03/16/2017 09:51:22 Dictated By: TYRONE MAY MD [facility]
== END 2017-03-10 11:18 | disposition home or self-care (01) | DRG 516 ==
LOC: ENPENDDIS 03-10 12:00
PROVIDERS: ADMIT Physical Medicine & Rehabilitation; ATTEND Physical Medicine & Rehabilitation
PROC: 07B63ZX Excision of Left Axillary Lymphatic, Percutaneous Approach, Diagnostic (ICD-10-PCS; principal; 2017-03-08)
DX: M84.452D Pathological fracture, left femur, subsequent encounter for fracture with routine healing (principal); C79.51 Secondary malignant neoplasm of bone; R59.1 Generalized enlarged lymph nodes; I12.9 Hypertensive chronic kidney disease with stage 1 through stage 4 chronic kidney disease, or unspecified chronic kidney disease; N18.3 Chronic kidney disease, stage 3 (moderate); I25.10 Atherosclerotic heart disease of native coronary artery without angina pectoris; I25.5 Ischemic cardiomyopathy; E89.0 Postprocedural hypothyroidism; F41.9 Anxiety disorder, unspecified; K21.9 Gastro-esophageal reflux disease without esophagitis; I25.2 Old myocardial infarction; Z85.21 Personal history of malignant neoplasm of larynx; Z87.891 Personal history of nicotine dependence
CPT/HCPCS: 36415; 76942; 78452; 80053; 85025; 85610; 85730; 88184; 88185; 88307; 88341; 88342; 88344; 93017; 94664

== ENCOUNTER → 2017-03-15 | Outpatient (CLI) | payer MEDICARE ==
[~2017-03-15] MED LIST changes: +OXC10TCR PO; +OXYC-471 PO
--- NOTE | 2017-03-15 16:44 | Diagnostic Imaging Report ---
EXAMINATION: PET-CT. TECHNIQUE: The serum glucose level at the time of the study is: 119 mg/dL. 12.0 mCi of FDG was administered intravenously followed by obtaining PET images with corresponding noncontrast CT scan images. The CT scan was performed for anatomic correlation and attenuation correction and was not performed according to the diagnostic protocol of the areas covered. The scan was performed from the head to mid thighs. INDICATION: Newly diagnosed lymphoma. Recent history of left femur fracture. History of head and neck cancer. FINDINGS: There is symmetric FDG uptake in the brain. There is mild increased FDG uptake seen in the larynx at the level of the vocal cords, likely physiologic. There is a hypermetabolic left supraclavicular lymph node with a maximum SUV of 9 and a short axis measurement of 1 cm. There are bilateral intensely hypermetabolic enlarged axillary lymph nodes with the largest on the right side being 3 x 2.1 cm and the largest on the left side being 3 x 3 cm. This is associated with a maximum SUV of 10.7 on the right side and slightly less but significant FDG uptake activity in the left axilla. Both axilla demonstrate multiple hypermetabolic lymph nodes. There are intensely hypermetabolic mediastinal and bilateral hilar lymph nodes seen with a maximum SUV of 10.7. There is also a hypermetabolic pulmonary nodule in the right upper lobe with a maximum SUV of 5 and axial measurements of 2.4 x 1.1 cm. There are other smaller adjacent right perihilar nodules with hypermetabolism, suggestive of lymphoma involvement. The spleen is not enlarged. There are multiple hypermetabolic periaortic and pericaval mildly enlarged lymph nodes. There are moderately enlarged common iliac and external iliac lymph nodes also seen bilaterally with prominent FDG uptake. There is also intense hypermetabolism seen in the subtrochanteric region of the right femur with a maximum SUV of 7.4 with a corresponding vague area of subtle sclerosis possibly present, compatible with bone involvement. Hypermetabolism around the proximal left fracture in the femoral shaft could be related to disease although hypermetabolism around an acute fracture is nonspecific and could be related to the fracture and reactive changes in the surrounding tissues. The largest lymph node in the pelvis is 3.7 cm along the right external iliac node. The periaortic lymphadenopathy is contiguous at multiple levels with short axis measurements up to 1.7 cm. More superiorly, however, a periaortic lymph node posterior to the body of the pancreas measures 2.6 x 2.2 cm. IMPRESSION: Widespread disease. 1. Hypermetabolic enlarged lymph nodes are seen in both axilla, mediastinum, radha, left supraclavicular region, and in the abdomen and pelvis. There are also hypermetabolic right perihilar pulmonary nodules and bone metastasis involving the subtrochanteric region of the right femur. 2. Hypermetabolism around the fracture site in the left femoral shaft may relate to lymphoma involvement; however, reactive tissue around an acute fracture can have prominent hypermetabolism without underlying neoplasm. Dictated by: Dictated on workstation # [id number]
== END ==
LOC: CARD 10:13
PROVIDERS: ATTEND Internal Medicine Hematology & Oncology
DX: R91.8 Other nonspecific abnormal finding of lung field (principal); R59.0 Localized enlarged lymph nodes; C79.51 Secondary malignant neoplasm of bone

== ENCOUNTER 2017-03-17 08:47 | Outpatient (CLI) | payer MEDICARE ==
[~2017-03-17] VITALS: Ht 157.5 cm; Wt 76.7 kg
[~2017-03-17 08:47] MED LIST changes: -IOHEXOL 350 MG/ML 100 ML (OMNIPAQUE 350) VIAL IV ONE; -NS 100 ML (IVPB) BAG IV ONE
== END 2017-03-17 10:30 ==
LOC: PREOP 08:47
PROVIDERS: ATTEND Surgery
DX: Z01.818 Encounter for other preprocedural examination (principal); C7A.8 Other malignant neuroendocrine tumors

== ENCOUNTER → 2017-03-17 | Outpatient (CLI) | payer MEDICARE ==
[~2017-03-17] MED LIST changes: +IOHEXOL 350 MG/ML 100 ML (OMNIPAQUE 350) VIAL IV ONE; +NS 100 ML (IVPB) BAG IV ONE
--- NOTE | 2017-03-17 13:47 | Diagnostic Imaging Report ---
PROCEDURE: CT head with and without contrast. TECHNIQUE: Multiple contiguous axial images were obtained through the brain before and after the administration of intravenous contrast. INDICATION: High-grade neuroendocrine small cell carcinoma. CONTRAST: 80 mL of Omnipaque 350 is administered intravenously. FINDINGS: The unenhanced phase demonstrates no intracranial hemorrhage. There are multiple enhancing lesions in the brain up to 2.1 cm in the left cerebellar hemisphere with localized mass effect and edema seen. There are multiple other lesions including right cerebellar hemisphere 1.5 cm lesion and a 1.2 cm lesion probably within the upper aspect of the left cerebellar hemisphere or possibly based on the tentorium. There are other lesions in the supratentorial aspect of the brain including a medial left parietal nodule measuring 6 mm. There are bilateral frontal lesions that appear to be on the cortex which may represent a cortical metastasis or leptomeningeal disease given the location adjacent to sulci in the frontal area. There is no midline shift. No hydrocephalus. No extra-axial fluid collection seen. The osseous structures, the paranasal sinuses, and orbits appear grossly unremarkable. IMPRESSION: Multiple enhancing lesions in the posterior fossa and the brain compatible with metastatic disease. Some subcentimeter lesions could be based on the tentorium and within the sulci in the frontal region. These could be cortical or leptomeningeal metastasis. This could be better evaluated with MRI of the brain if needed. The findings were discussed with Dr. Brown by Dr. Theodore at time of dictation. Dictated by: Dictated on workstation # [id number]
== END ==
LOC: RAD 12:56
PROVIDERS: ATTEND Internal Medicine Hematology & Oncology
DX: C7A.8 Other malignant neuroendocrine tumors (principal)
CPT/HCPCS: 70470

== ENCOUNTER 2017-03-24 09:23 | Day surgery (SDC) | payer MEDICARE ==
[~2017-03-24] VITALS: Ht 157.5 cm; Wt 76.7 kg
[2017-03-24] MEDS ORDERED: ceFAZolin 1 GM/NS 50 ML IVPB IV ONE ×2 (10:00)
[2017-03-24] MEDS ORDERED: CATHETER FLUSH 10 ML SYR IV PRN (10:00)
[2017-03-24] MEDS ORDERED: LACTATED RINGERS 1,000 ML IV PRN (10:30)
[2017-03-24 10:49] VITALS: BP 135/67
[2017-03-24] MEDS ORDERED: 0.9% SODIUM CHLORIDE PF INJ 20 ML VIAL ONE (11:01)
[2017-03-24] MEDS ORDERED: ONDANSETRON 4 MG/2 ML (SDV) Z0FRAN ONE (11:36)
[2017-03-24] MEDS ORDERED: MIDAZOLAM 2 MG/2 ML (VERSED) VIAL ONE (11:36)
[2017-03-24] MEDS ORDERED: PROPOFOL INJECTION 50 ML IV ONE (11:36)
[2017-03-24] MEDS ORDERED: LACTATED RINGERS 1,000 ML IV ONE (11:36)
--- NOTE | 2017-03-24 11:40 | Progress Note-Pre Operative ---
Pre-Operative Progress Note H&P Reviewed The H&P was reviewed, patient examined and no changes noted. Date H&P Reviewed: March 24, 2017 Time H&P Reviewed: 11:39 Pre-Operative Diagnosis: high grade neuroendocrine carcinoma LUISITO HOWARD DO March 24, 2017 11:39 am
--- NOTE | 2017-03-24 12:07 | Discharge Inst-Simple/Standard ---
Discharge Inst-Standard Patient Instructions/Follow Up Plan of Care/Instructions/FU: Hold Aspirin for 3 days Follow up with Dr. Conrad in 2 weeks Apply ice to incision for 15 mins on and 30 mins off Activity as Tolerated: No Discharge Diet: No Restrictions Other Inst to Patient Follow up Appt: Make appointment for 2 weeks. Instructions: No lifting greater than 10 pounds. No strenuous activity. May shower in 24 hours, no tub bath or soaking. Use incentive spirometer at home as directed. No Smoking Apply ice to incision for 15 mins on and 30 mins off Skin/Wound Care: May remove bandages. You need to leave the white strips over incision on they will fall off on their own. Symptoms to Report: Appetite Changes, Extremity Discoloration, Numbness/Tingling, Swelling Increased , Bleeding Excessive, Eyesight Changes, Pain Increased, Urine Color Change, Constipation(Persistent), Fever over 101 degree F, Pain/Pressure in chest, Urinating Difficulty, Cough Up/Vomit Blood, Heart Beat Irreg/Pounding, Pain/ Pressure in jaw, Vaginal Bleeding Increase, Cramps in feet or legs, Lightheadedness, Pain/Pressure in shoulder, Diarrhea(Persistent), Memory Changes Suddenly, Questions/Concerns, Weight gain consecutive days, Dizziness/ Fainting, Nausea/Vomiting, Shortness of Breath, Weight gain over 2 pounds If questions or concerns contact your physician Or seek help at emergency department. BASSEM HERNANDEZ APRN March 24, 2017 12:07
--- NOTE | 2017-03-24 12:55 | Progress Note-Post Operative ---
Post-Operative Progess Note Surgeon (s)/Adobe Maker (s) Surgeon LUISITO HOWARD DO Adobe Maker: na Pre-Operative Diagnosis high grade neuroendocrine carcinoma Post-Operative Diagnosis same Procedure & Operative Findings Date of Procedure 03/24/17 Procedure Preformed/Findings port placement u/s guidance Anesthesia Type mac Estimated Blood Loss Estimated blood loss (mL): minimal Specimens/Packing Specimens Removed na Packing: LUISITO Parham DO March 24, 2017 12:55 pm
[2017-03-24] MEDS ORDERED: morphine INJ 10 MG/ML 1ML (SYR OR VIAL) IVP PRN (13:00)
[2017-03-24 13:15] VITALS: BP 134/63
--- NOTE | 2017-03-24 13:19 | Diagnostic Imaging Report ---
Portable upright radiograph of the chest. INDICATION: Port placement. FINDINGS: The heart is markedly enlarged with no vascular congestion. The lungs are clear. No effusion or pneumothorax. The mediastinum and radha appear unremarkable. There is a right internal jugular infusion port with the tip at the distal SVC level. IMPRESSION: Cardiomegaly. Dictated by: Dictated on workstation # [id number]
[2017-03-24 13:45] VITALS: BP 136/58
[2017-03-24 13:55] VITALS: BP 136/58
--- NOTE | 2017-03-24 13:57 | OPERATIVE REPORT ---
DATE OF SERVICE: 03/24/2017 PREOPERATIVE DIAGNOSIS: High-grade neuroendocrine carcinoma. POSTOPERATIVE DIAGNOSIS: High-grade neuroendocrine carcinoma. PROCEDURE: Right internal jugular PowerPort placement, ultrasound-guided. SURGEON: Luisito Conrad DO ANESTHESIA: MAC. ESTIMATED BLOOD LOSS: Minimal. COMPLICATIONS: None. INDICATIONS: The patient is a 72-year-old male with high-grade neuroendocrine carcinoma with metastasis. He understands risks and benefits of port placement. He understands risks and benefits and wishes to proceed. Consent was signed and on the chart. PROCEDURE IN DETAIL: The patient was taken to the operating suite. He was prepped and draped in a sterile fashion. A surgical pause was performed. Using ultrasound guidance, the right internal jugular vein was located. Local anesthetic was infiltrated into this area. The right internal jugular vein was then accessed with micro access needle. Dark, nonpulsatile blood was withdrawn. The micro access wire was inserted and fluoroscopy assured proper placement. The needle was removed. The micro access dilator was then advanced over the wire and the wire was removed. The normal guidewire was inserted into the sheath and the sheath was then removed. Fluoroscopy assured proper placement. The wire was then secured. Local anesthetic was infiltrated into the right neck area down to the right chest for tunneling and pocket creation. A 15 blade scalpel was used to make an incision over the right chest. Cautery was used to dissect down to the pectoral fascia and then create a pocket with both cautery and blunt dissection. The wire was then grasped and dilator sheath was then advanced over the guidewire under fluoroscopy. The wire and dilator were removed and the Groshong catheter was inserted to the sheath. The sheath was then removed. The Groshong wire was then removed and the catheter was tunneled from the right neck down to the pocket that was created. Using fluoroscopy, the catheter was cut to length and secured to the port and placed within the pocket. The port was then accessed without difficulty, blood drawn without difficulty and then the port was flushed with saline and then heparin. The subcutaneous tissues were then reapproximated using 3-0 Vicryl. The area was then washed and dried. Dermabond was then placed over the neck insertion point and the incision. Once this was dried, sterile bandage was applied. The patient tolerated the procedure well without any complications. He was taken to the recovery room in stable condition. Chest x-ray pending. Job ID: [id number] DocumentID: [id number] Dictated Date: 03/24/2017 13:11:51 Combination Welder Date: 03/24/2017 13:56:50 Dictated By: LUISITO CONRAD DO
--- NOTE | 2017-03-24 20:30 | Diagnostic Imaging Report ---
EXAM: Intraoperative radiograph of the chest. INDICATION: Port placement by Dr. Conrad FINDINGS: 19 seconds of fluoroscopy time was provided. IMPRESSION: Provided image demonstrates an infusion port placed with the tip at the SVC level. Dictated by: Dictated on workstation # [id number]
== END 2017-03-24 13:55 | disposition home or self-care (01) ==
LOC: SDC 09:23
PROVIDERS: ATTEND Surgery
DX: C7A.1 Malignant poorly differentiated neuroendocrine tumors (principal); Z11.2 Encounter for screening for other bacterial diseases; E03.9 Hypothyroidism, unspecified; I25.10 Atherosclerotic heart disease of native coronary artery without angina pectoris; M19.90 Unspecified osteoarthritis, unspecified site; I10 Essential (primary) hypertension; Z85.21 Personal history of malignant neoplasm of larynx; Z79.899 Other long term (current) drug therapy
CPT/HCPCS: 71010; 87081

== ENCOUNTER 2017-04-20 13:47 | Inpatient (IN) | payer MEDICARE ==
[~2017-04-20] VITALS: Ht 157.5 cm; Wt 64.9 kg
[2017-04-20 15:34] VITALS: BP 129/62
--- NOTE | 2017-04-20 15:41 | Diagnostic Imaging Report ---
EXAMINATION: Bilateral renal ultrasound. INDICATION: Acute renal failure. FINDINGS: The right kidney is 9.9 cm and the left kidney is 10.5 cm in length. There is no hydronephrosis in either kidney. Multiple simple cysts are seen up to 1.9 cm in the midright kidney and up to 2.6 cm in the left kidney. IMPRESSION: No hydronephrosis. Dictated by: Dictated on workstation # [id number]
[2017-04-20] MEDS ORDERED: PROC10TA PO (15:56)
[2017-04-20] MEDS ORDERED: FLUC100T6 PO (15:56)
[2017-04-20] MEDS ORDERED: ONDA8TAB6 PO (15:56)
[2017-04-20] MEDS ORDERED: ZOLP5TAB7 PO (15:56)
[2017-04-20] MEDS ORDERED: OXYC10TA55 PO (15:56)
[2017-04-20] MEDS ORDERED: PANT40TA2 PO (16:08)
[2017-04-20] MEDS ORDERED: MELO7.5T46 PO (16:08)
[2017-04-20] MEDS ORDERED: ACYC400T PO (16:08)
[2017-04-20] MEDS ORDERED: OXYC5TAB71 PO (16:08)
[2017-04-20] MEDS ORDERED: POLY17PO6 PO (16:15)
[2017-04-20] MEDS ORDERED: CHOL10007 PO (16:15)
[2017-04-20] MEDS ORDERED: NIAC1CAP12 PO (16:15)
[2017-04-20] MEDS ORDERED: ASPI-983 PO (16:15)
[2017-04-20] MEDS ORDERED: NS IV 1000 ML 1,000 ML ONE (16:16)
[2017-04-20] MEDS: LACTATED RINGERS 1,000 ML IV SCH ×2 (16:30→20:34)
[2017-04-20 19:25] VITALS: BP 140/63
[2017-04-20 23:40] VITALS: BP 122/73
[2017-04-21] MEDS: LACTATED RINGERS 1,000 ML IV SCH ×5 (00:49→21:34)
[2017-04-21 04:45] VITALS: BP 120/67
[2017-04-21 05:43] LABS: BASOPHILS % (AUTO) 1 % (0-10); EOSINOPHILS % (AUTO) 0 % (0-10); LYMPHOCYTES # (AUTO) 0.2 X 10^3 (1.0-4.0); LYMPHOCYTES % (AUTO) 4 % (12-44); MEAN CORPUSCULAR HEMOGLOBIN 31 PG (25-34); MEAN CORPUSCULAR HGB CONC 34 G/DL (32-36); MEAN CORPUSCULAR VOLUME 89 FL (80-99); MEAN PLATELET VOLUME 10.2 FL (7.4-10.4); MONOCYTES # (AUTO) 0.6 X 10^3 (0.0-1.0); MONOCYTES % (AUTO) 15 % (0-12); NEUTROPHILS # (AUTO) 3.2 X 10^3 (1.8-7.8); NEUTROPHILS % (AUTO) 80 % (42-75); PLATELET COUNT 244 10^3/uL (130-400); RED BLOOD COUNT 2.92 10^6/uL (4.35-5.85); RED CELL DISTRIBUTION WIDTH 14.2 % (10.0-14.5)
[2017-04-21 06:02] LABS: ALBUMIN 2.4 G/DL (3.2-4.5); BILIRUBIN,TOTAL 0.6 MG/DL (0.1-1.0); CALCIUM 8.4 MG/DL (8.5-10.1); CREATININE SERUM 3.57 MG/DL (0.60-1.30); POTASSIUM 4.4 MMOL/L (3.6-5.0); TOTAL PROTEIN 4.8 G/DL (6.4-8.2)
--- NOTE | 2017-04-21 08:22 | History & Physical-Hospitalist ---
HPI History of Present Illness: HPI/Chief Complaint Mr. Jn Jerome-year-old white male with known small cell presumed lung cancer primary with bony and cerebral metastasis and received his first dose of cisplatin-based chemotherapy patient states last week he believes Tuesday. He reported poor by mouth intake and low blood pressure which necessitated discontinuing antihypertensive medication in the form of lisinopril HCT. He has baseline mild stage III chronic renal disease with creatinine levels in the 1.4-1.8 range. He had an appropriately reduced dosage of tcy-siqowurm-mhulp chemotherapy but with repeat BMP earlier this week his creatinine was up to 6.6 with poor by mouth intake. He was given 1 or 2 L of IV fluid cancer Center with no improvement over the following 24 hours necessitating admission for acute renal failure. He reports poor urine output with some mild nausea but denies abdominal pain chest pain or shortness of breath. He also denied extremity edema. He has no previous history of renal failure and no history of significant prostatism or urinary obstruction. He did not have known disease anywhere around the urinary outflow tract or the perinephric area. Date Seen 04/21/17 Time Seen by Provider: 08:00 Attending Physician Debbie Bell M.D. PCP Debbie Bell MD Referring Physician Date of Admission Apr 20, 2017 at 15:00 Home Medications & Allergies Home Medications Reviewed patient Home Medication Reconciliation Form Allergies Allergies Coded Allergies No Known Drug Allergies (Unverified02/28/17) Past Jaftjpw-Ybrkwd-Svehnt Hx Patient Social History Alcohol Use: Denies Use Recreational Drug Use: No Smoking Status: Former Smoker Type Used: Cigarettes Physical Abuse Screen: No Sexual Abuse: No Recent Foreign Travel: No Contact w/other who traveled: No Recent Hopitalizations: Yes (femur fx) Recent Infectious Disease Expo: No Seasonal Allergies Seasonal Allergies: No Surgeries HX Surgeries: Yes (TRACH, L femur fx) Surgeries: Cardiac Respiratory Hx Respiratory Disorders: Yes (HX TRACH, POST THROAT CANCER) Cardiovascular Hx Cardiovascular Disorders: Yes (ANGIOPLASTY 1990-hx of PVC'S) Cardiac Disorders: Coronary Artery Disease, Heart Attack, Hypertension Neurological Hx Neurological Disorders: No Reproductive System Hx Reproductive Disorders: No Sexually Transmitted Disease: No HIV/AIDS: No Genitourinary Hx Genitourinary Disorders: No Gastrointestinal Hx Gastrointestinal Disorders: Yes Gastrointestinal Disorders: Gastroesophageal Reflux Musculoskeletal Hx Musculoskeletal Disorders: Yes (NECK FROM RADIATION) Musculoskeletal Disorders: Fractures Endocrine Hx Endocrine Disorders: Yes Endocrine Disorders: Hypothyroidsim HEENT HX ENT Disorders: Yes (TRACHEOCUTANEOUS FISTULA) Loss of Vision: Denies Hearing Impairment: Denies Cancer Hx Cancer: Yes (throat) Psychosocial Hx Psychiatric Problems: No Integumentary HX Skin/Integumentary Disorder: No Blood Transfusions Hx Blood Disorders: No Family Medical History Family Hx: Cardiovascular disease 19 FATHER (40 at 40 SC) G8 SISTER Diabetes mellitus G8 SISTER Hypercholesterolemia G8 SISTER Hypertension 19 FATHER G8 SISTER Kidney disease Myocardial infarction 19 FATHER (40) Review of Systems Time Seen by Provider: 08:00 Constitutional: No see HPI, No chills, No diaphoresis, No dizziness, No fever, malaise, weakness, No weight gain, No weight loss Respiratory: No cough, No dyspnea on exertion, No hemoptysis, No orthopnea, No phlegm, No short of breath Cardiovascular: see HPI Gastrointestinal: see HPI Physical Exam Physical Exam Vital Signs Vital Sign - Last 12Hours 04/20/17 15:34 Temp 97.0 Pulse 66 Resp 16 B/P (MAP) 129/62 Pulse Ox 97 Capillary Refill : General Appearance: No Apparent Distress, Chronically ill Neck: Full Range of Motion, Normal Inspection, Non Tender, Supple, Carotid Bruit Respiratory: Chest Non Tender, Lungs Clear, Normal Breath Sounds, No Accessory Muscle Use, No Respiratory Distress Cardiovascular: Regular Rate, Rhythm, No Edema, No Gallop, No JVD, Normal Peripheral Pulses, Other (1 to 2/6 systolic ejection murmur heard left lower sternal border and second right intercostal space. Baseline examination for this patient.) Gastrointestinal: Normal Bowel Sounds, No Organomegaly, No Pulsatile Mass, Non Tender, Soft Extremity: Other (trace pedal and pretibial edema no upper extremity edema is noted.) Results Results/Procedures Lab Laboratory Tests 04/21/17 05:33 04/22/17 09:11 Radiology renal ultrasound reveals no evidence for hydronephrosis bilaterally and no parenchymal abnormalities are noted. Assessment/Plan Admission Diagnosis 1. Small cell lung cancer with known bony and cerebral metastasis with acute renal failure secondary to combination of dehydration with hypotension resulting in acute tubular necrosis. There may be a component of cis-[place]ks[place]- based toxicity on top of this. His creatinine level was down significantly after IV fluids and over the past 12 hours he has 400 mL of urine output. We' ll decrease IV fluid rate and advance diet today. 2. Recent pathologic fracture of the left femur status post ORIF and subsequent radiation therapy. 3. Patient is also finished a course of whole brain radiation for cerebral metastasis. 3. History of coronary artery disease 4. History of squamous cell carcinoma of the larynx post laryngectomy and radiation therapy greater than 10 years out. Clinical Quality Measures DVT/VTE Risk/Contraindication: Risk Factor Score Per Nursin RFS Level Per Nursing on Admit: 3=High DEBBIE BELL MD Apr 21, 2017 08:22
[2017-04-21 08:44] VITALS: BP 139/63
[2017-04-21 12:14] VITALS: BP 112/56
[2017-04-21 16:33] VITALS: BP 168/60
[2017-04-21] MEDS ORDERED: ACETAMINOPHEN 500 MG TAB (TYLENOL) PO PRN (19:00)
[2017-04-21] MEDS ORDERED: CATHETER FLUSH 10 ML SYR IV PRN (19:15)
[2017-04-21 19:35] VITALS: BP 115/56
[2017-04-21 23:55] VITALS: BP 139/65
[2017-04-22 04:05] VITALS: BP 143/67
[2017-04-22] MEDS: LACTATED RINGERS 1,000 ML IV SCH (07:35)
[2017-04-22 08:51] VITALS: BP 137/65
[2017-04-22 09:38] LABS: CREATININE SERUM 2.03 MG/DL (0.60-1.30); POTASSIUM 4.1 MMOL/L (3.6-5.0)
[2017-04-22 09:39] LABS: CALCIUM 8.6 MG/DL (8.5-10.1)
--- NOTE | 2017-04-22 10:59 | Discharge Summary-Hospitalist ---
Diagnosis/Chief Complaint Date of Admission Apr 20, 2017 at 15:00 Date of Discharge Discharge Date: Apr 22, 2017 Admission Diagnosis 1. Small cell lung cancer with known bony and cerebral metastasis with acute renal failure secondary to combination of dehydration with hypotension resulting in acute tubular necrosis. There may be a component of cis-wrangell- based toxicity on top of this. His creatinine level was down significantly after IV fluids and over the past 12 hours he has 400 mL of urine output. We' ll decrease IV fluid rate and advance diet today. 2. Recent pathologic fracture of the left femur status post ORIF and subsequent radiation therapy. 3. Patient is also finished a course of whole brain radiation for cerebral metastasis. 3. History of coronary artery disease 4. History of squamous cell carcinoma of the larynx post laryngectomy and radiation therapy greater than 10 years out. Discharge Diagnosis 1. Acute renal failure secondary to hypotension with acute tubular necrosis. 2. Small cell carcinoma presumed long widely metastatic to the mediastinum the brain and bone. 3. Recent pathologic fracture left femur secondary to number 2. 4. Distant history of squamous cell carcinoma of the larynx. 5. Coronary artery disease. 6. Hypothyroidism secondary to radiation therapy from number 4 Reason Hospital Visit/Course Mr. Jn Jerome-year-old white male with known small cell presumed lung cancer primary with bony and cerebral metastasis and received his first dose of cisplatin-based chemotherapy patient states last week he believes Tuesday. He reported poor by mouth intake and low blood pressure which necessitated discontinuing antihypertensive medication in the form of lisinopril HCT. He has baseline mild stage III chronic renal disease with creatinine levels in the 1.4-1.8 range. He had an appropriately reduced dosage of twy-cekjohsi-nwhsc chemotherapy but with repeat BMP earlier this week his creatinine was up to 6.6 with poor by mouth intake. He was given 1 or 2 L of IV fluid cancer Center with no improvement over the following 24 hours necessitating admission for acute renal failure. He reports poor urine output with some mild nausea but denies abdominal pain chest pain or shortness of breath. He also denied extremity edema. He has no previous history of renal failure and no history of significant prostatism or urinary obstruction. He did not have known disease anywhere around the urinary outflow tract or the perinephric area. Hospital course IV fluids were initiated and the patient underwent renal ultrasound. No evidence for hydronephrosis or obstruction was noted. By the day of his discharge on IV fluids his creatinine was down to 2 with normal electrolytes. He was tolerating solids and liquids without nausea. He has a scheduled appointment for follow-up lab next week and then an appointment with Dr. Bush around 03 May. He is not sure was 12.0 with me but I will be checking at the office and will likely see him back within 2 weeks. Antihypertensive medication and lipid lowering therapy will be discontinued as his liver function tests were still mildly elevated and considering a diagnosis of widely metastatic small cell carcinoma risks likely outweigh potential benefits. Discharge Summary Discharge Physical Examination Allergies: Coded Allergies: No Known Drug Allergies (Unverified , 02/28/17) Vitals & I&Os Vital Signs Date Time Temp Pulse Resp B/P (MAP) Pulse Ox O2 Delivery O2 Flow Rate FiO2 04/22/17 08:51 97.8 62 18 137/65 97 Hospital Course Labs (last 24 hrs) Laboratory Tests 04/22/17 09:11: Sodium Level 136, Potassium Level 4.1, Chloride Level 106, Carbon Dioxide Level 22, Anion Gap 8, Blood Urea Nitrogen 37H, Creatinine 2.03H, Estimat Glomerular Filtration Rate 33, BUN/Creatinine Ratio 18, Glucose Level 116H, Calcium Level 8.6 Pending Labs Laboratory Tests 04/22/17 09:11: Sodium Level 136, Potassium Level 4.1, Chloride Level 106, Carbon Dioxide Level 22, Anion Gap 8, Blood Urea Nitrogen 37, Creatinine 2.03, Estimat Glomerular Filtration Rate 33, BUN/Creatinine Ratio 18, Glucose Level 116, Calcium Level 8.6 Discharge Home Medications: Active Scripts Active Reported Niacin Flush Free 500 mg Cap (Niacin (Inositol Niacinate)) 400 Mg Capsule 500 Mg PO DAILY Vitamin D3 (Cholecalciferol (Vitamin D3)) 1,000 Unit Capsule 1,000 Unit PO DAILY Miralax (Polyethylene Glycol 3350) 17 Gm Powd.pack 17 Gm PO DAILY Aspirin EC (Aspirin) 81 Mg Tablet.dr 81 Mg PO DAILY Oxycodone HCl 5 Mg Tablet 5 Mg PO Q4H PRN Meloxicam 7.5 Mg Tablet 7.5 Mg PO DAILY Protonix (Pantoprazole Sodium) 40 Mg Tablet.dr 40 Mg PO HS Acyclovir 400 Mg Tablet 400 Mg PO TID 5 Days 5 DAY SUPPLY FILLED 04-15-17 Fluconazole 100 Mg Tablet 100 Mg PO DAILY 5 DAY THERAPY FILLED 04-15-17 Oxycontin (Oxycodone HCl) 10 Mg Tab.er.12h 10 Mg PO Q12H PRN Prochlorperazine Maleate 10 Mg Tablet 10 Mg PO Q6H PRN Zofran (Ondansetron HCl) 8 Mg Tablet 8 Mg PO Q8H PRN Zolpidem Tartrate 5 Mg Tablet 5 Mg PO HS Lisinopril 40 Mg Tablet 40 Mg PO DAILY Amlodipine Besylate 5 Mg Tablet 5 Mg PO DAILY Levothyroxine Sodium 100 Mcg Tablet 100 Mcg PO DAILY Pravastatin Sodium 80 Mg Tablet 80 Mg PO HS Instructions to patient/family Please see electonic discharge instructions given to patient. Clinical Quality Measures DVT/VTE Risk/Contraindication: Risk Factor Score Per Nursin RFS Level Per Nursing on Admit: 3=High Copy Copies To 1: DEBBIE BELL MD, MARK D MD Apr 22, 2017 10:59
[2017-04-22 12:00] VITALS: BP 142/63
[2017-04-22 12:15] VITALS: BP 142/63
== END 2017-04-22 12:15 | disposition home or self-care (01) | DRG 683 ==
LOC: OBSVTOIN 15:00 → 4TH 15:00
PROVIDERS: ADMIT Internal Medicine; ATTEND Internal Medicine
DX: N17.0 Acute kidney failure with tubular necrosis (principal); E86.0 Dehydration; I95.9 Hypotension, unspecified; T45.1X5A Adverse effect of antineoplastic and immunosuppressive drugs, initial encounter; C34.90 Malignant neoplasm of unspecified part of unspecified bronchus or lung; C79.51 Secondary malignant neoplasm of bone; C79.31 Secondary malignant neoplasm of brain; Z66 Do not resuscitate; I12.9 Hypertensive chronic kidney disease with stage 1 through stage 4 chronic kidney disease, or unspecified chronic kidney disease; N18.3 Chronic kidney disease, stage 3 (moderate); I25.10 Atherosclerotic heart disease of native coronary artery without angina pectoris; E03.9 Hypothyroidism, unspecified; K21.9 Gastro-esophageal reflux disease without esophagitis; R11.0 Nausea; Z92.3 Personal history of irradiation; Z85.819 Personal history of malignant neoplasm of unspecified site of lip, oral cavity, and pharynx; Z87.891 Personal history of nicotine dependence; Z95.1 Presence of aortocoronary bypass graft
CPT/HCPCS: 36415; 76770; 80048; 80053; 85025

== ENCOUNTER 2017-05-09 13:27 | Outpatient (RCR) | payer MEDICARE ==
[2017-03-16 09:55] LABS: BASOPHILS # (AUTO) 0.1 10^3/uL (0.0-0.1); BASOPHILS % (AUTO) 1 % (0-10); EOSINOPHILS # (AUTO) 0.1 10^3/uL (0.0-0.3); EOSINOPHILS % (AUTO) 1 % (0-10); LYMPHOCYTES # (AUTO) 0.7 X 10^3 (1.0-4.0); LYMPHOCYTES % (AUTO) 15 % (12-44); MEAN CORPUSCULAR HEMOGLOBIN 30 PG (25-34); MEAN CORPUSCULAR HGB CONC 34 G/DL (32-36); MEAN CORPUSCULAR VOLUME 89 FL (80-99); MEAN PLATELET VOLUME 8.8 FL (7.4-10.4); MONOCYTES # (AUTO) 0.9 X 10^3 (0.0-1.0); MONOCYTES % (AUTO) 18 % (0-12); NEUTROPHILS # (AUTO) 3.1 X 10^3 (1.8-7.8); NEUTROPHILS % (AUTO) 65 % (42-75); PLATELET COUNT 442 10^3/uL (130-400); RED BLOOD COUNT 4.01 10^6/uL (4.35-5.85); RED CELL DISTRIBUTION WIDTH 12.8 % (10.0-14.5); WHITE BLOOD COUNT 4.7 10^3/uL (4.3-11.0)
[2017-03-16 10:35] LABS: ALBUMIN 3.7 G/DL (3.2-4.5); CREATININE SERUM 1.92 MG/DL (0.60-1.30); POTASSIUM 4.6 MMOL/L (3.6-5.0); TOTAL PROTEIN 6.8 G/DL (6.4-8.2)
[2017-03-16 10:54] LABS: THYROID STIMULATING HORMONE 16.94 UIU/ML (0.35-4.94)
[2017-04-05 08:55] LABS: BASOPHILS % (AUTO) 0 % (0-10); EOSINOPHILS # (AUTO) 0.1 10^3/uL (0.0-0.3); EOSINOPHILS % (AUTO) 1 % (0-10); LYMPHOCYTES # (AUTO) 0.3 X 10^3 (1.0-4.0); LYMPHOCYTES % (AUTO) 3 % (12-44); MEAN CORPUSCULAR HEMOGLOBIN 31 PG (25-34); MEAN CORPUSCULAR HGB CONC 35 G/DL (32-36); MEAN CORPUSCULAR VOLUME 90 FL (80-99); MEAN PLATELET VOLUME 9.5 FL (7.4-10.4); MONOCYTES # (AUTO) 1.1 X 10^3 (0.0-1.0); MONOCYTES % (AUTO) 12 % (0-12); NEUTROPHILS # (AUTO) 7.2 X 10^3 (1.8-7.8); NEUTROPHILS % (AUTO) 84 % (42-75); PLATELET COUNT 152 10^3/uL (130-400); RED BLOOD COUNT 3.91 10^6/uL (4.35-5.85); RED CELL DISTRIBUTION WIDTH 14.7 % (10.0-14.5); WHITE BLOOD COUNT 8.6 10^3/uL (4.3-11.0)
[2017-04-05 08:59] LABS: ALBUMIN 3.3 G/DL (3.2-4.5); BILIRUBIN,TOTAL 1.1 MG/DL (0.1-1.0); CALCIUM 8.6 MG/DL (8.5-10.1); CREATININE SERUM 1.83 MG/DL (0.60-1.30); TOTAL PROTEIN 5.9 G/DL (6.4-8.2)
[2017-04-05 09:04] LABS: POTASSIUM 5.8 MMOL/L (3.6-5.0)
[2017-04-12 09:09] LABS: BASOPHILS % (AUTO) 0 % (0-10); EOSINOPHILS % (AUTO) 1 % (0-10); LYMPHOCYTES # (AUTO) 0.2 X 10^3 (1.0-4.0); LYMPHOCYTES % (AUTO) 9 % (12-44); MEAN CORPUSCULAR HEMOGLOBIN 31 PG (25-34); MEAN CORPUSCULAR HGB CONC 34 G/DL (32-36); MEAN CORPUSCULAR VOLUME 90 FL (80-99); MEAN PLATELET VOLUME 8.7 FL (7.4-10.4); MONOCYTES % (AUTO) 2 % (0-12); NEUTROPHILS # (AUTO) 1.7 X 10^3 (1.8-7.8); NEUTROPHILS % (AUTO) 88 % (42-75); PLATELET COUNT 92 10^3/uL (130-400); RED BLOOD COUNT 3.74 10^6/uL (4.35-5.85); RED CELL DISTRIBUTION WIDTH 14.2 % (10.0-14.5)
[2017-04-12 09:59] LABS: CALCIUM 9.1 MG/DL (8.5-10.1); CREATININE SERUM 1.42 MG/DL (0.60-1.30); POTASSIUM 4.9 MMOL/L (3.6-5.0)
[2017-04-19 10:52] LABS: BASOPHILS % (AUTO) 0 % (0-10); EOSINOPHILS % (AUTO) 1 % (0-10); LYMPHOCYTES # (AUTO) 0.3 X 10^3 (1.0-4.0); LYMPHOCYTES % (AUTO) 11 % (12-44); MEAN CORPUSCULAR HEMOGLOBIN 30 PG (25-34); MEAN CORPUSCULAR HGB CONC 34 G/DL (32-36); MEAN CORPUSCULAR VOLUME 88 FL (80-99); MEAN PLATELET VOLUME 9.8 FL (7.4-10.4); MONOCYTES # (AUTO) 0.6 X 10^3 (0.0-1.0); MONOCYTES % (AUTO) 26 % (0-12); NEUTROPHILS # (AUTO) 1.4 X 10^3 (1.8-7.8); NEUTROPHILS % (AUTO) 61 % (42-75); PLATELET COUNT 269 10^3/uL (130-400); RED BLOOD COUNT 3.54 10^6/uL (4.35-5.85); RED CELL DISTRIBUTION WIDTH 14.4 % (10.0-14.5); WHITE BLOOD COUNT 2.3 10^3/uL (4.3-11.0)
[2017-04-19 12:28] LABS: CALCIUM 9.7 MG/DL (8.5-10.1); CREATININE SERUM 6.64 MG/DL (0.60-1.30); POTASSIUM 5.1 MMOL/L (3.6-5.0)
[2017-04-20 09:31] LABS: CALCIUM 9.1 MG/DL (8.5-10.1); CREATININE SERUM 6.08 MG/DL (0.60-1.30); POTASSIUM 4.6 MMOL/L (3.6-5.0)
[2017-04-26 09:32] LABS: BASOPHILS # (AUTO) 0.1 10^3/uL (0.0-0.1); BASOPHILS % (AUTO) 1 % (0-10); EOSINOPHILS % (AUTO) 0 % (0-10); LYMPHOCYTES # (AUTO) 0.4 X 10^3 (1.0-4.0); LYMPHOCYTES % (AUTO) 4 % (12-44); MEAN CORPUSCULAR HEMOGLOBIN 30 PG (25-34); MEAN CORPUSCULAR HGB CONC 33 G/DL (32-36); MEAN CORPUSCULAR VOLUME 91 FL (80-99); MEAN PLATELET VOLUME 9.3 FL (7.4-10.4); MONOCYTES # (AUTO) 1.4 X 10^3 (0.0-1.0); MONOCYTES % (AUTO) 13 % (0-12); NEUTROPHILS % (AUTO) 82 % (42-75); PLATELET COUNT 334 10^3/uL (130-400); RED BLOOD COUNT 3.26 10^6/uL (4.35-5.85); RED CELL DISTRIBUTION WIDTH 14.9 % (10.0-14.5); WHITE BLOOD COUNT 10.9 10^3/uL (4.3-11.0)
[2017-04-26 09:50] LABS: CALCIUM 8.5 MG/DL (8.5-10.1); CREATININE SERUM 1.29 MG/DL (0.60-1.30); POTASSIUM 3.8 MMOL/L (3.6-5.0)
[2017-05-03 10:07] LABS: BASOPHILS # (AUTO) 0.1 10^3/uL (0.0-0.1); BASOPHILS % (AUTO) 1 % (0-10); EOSINOPHILS % (AUTO) 0 % (0-10); LYMPHOCYTES # (AUTO) 0.4 X 10^3 (1.0-4.0); LYMPHOCYTES % (AUTO) 5 % (12-44); MEAN CORPUSCULAR HEMOGLOBIN 30 PG (25-34); MEAN CORPUSCULAR HGB CONC 33 G/DL (32-36); MEAN CORPUSCULAR VOLUME 90 FL (80-99); MEAN PLATELET VOLUME 9.7 FL (7.4-10.4); MONOCYTES # (AUTO) 1.4 X 10^3 (0.0-1.0); MONOCYTES % (AUTO) 19 % (0-12); NEUTROPHILS # (AUTO) 5.3 X 10^3 (1.8-7.8); NEUTROPHILS % (AUTO) 75 % (42-75); PLATELET COUNT 445 10^3/uL (130-400); RED BLOOD COUNT 3.45 10^6/uL (4.35-5.85); RED CELL DISTRIBUTION WIDTH 15.8 % (10.0-14.5); WHITE BLOOD COUNT 7.1 10^3/uL (4.3-11.0)
[2017-05-03 10:24] LABS: ALANINE AMINOTRANSFERASE 162 U/L (0-55); ALBUMIN 3.1 GM/DL (3.2-4.5); ANION GAP 10 MMOL/L (5-14); ASPARTATE AMINO TRANSFERASE 150 U/L (5-34); BILIRUBIN,TOTAL 0.9 MG/DL (0.1-1.0); BLOOD UREA NITROGEN 11 MG/DL (7-18); BUN/CREATININE RATIO 10 (0-20); CALCIUM 9.2 MG/DL (8.5-10.1); CARBON DIOXIDE 22 MMOL/L (21-32); CHLORIDE 103 MMOL/L (98-107); CREATININE SERUM 1.08 MG/DL (0.60-1.30); GFR ESTIMATED > 60; GLUCOSE 151 MG/DL (70-105); HEMOLYSIS 6 (-100-29); ICTERUS 0.7 (-100-1.9); LACTATE DEHYDROGENASE 513 U/L (125-220); LIPEMIA 7 (-100-49); MAGNESIUM 1.8 MG/DL (1.8-2.4); POTASSIUM 3.9 MMOL/L (3.6-5.0); SODIUM 135 MMOL/L (135-145); TOTAL PROTEIN 6.5 GM/DL (6.4-8.2)
[2017-05-03 10:44] LABS: THYROID STIMULATING HORMONE 13.96 UIU/ML (0.35-4.94)
[~2017-05-09] VITALS: Ht 157.5 cm; Wt 76.7 kg
[~2017-05-09 13:27] MED LIST changes: +ACYC400T PO; +ASPI-983 PO; +CARBOPLATIN 300 MG in D5W 50 ML IV(CANCER CTR) 50 ML IV SCH; +CHOL10007 PO; +DEXAMETHASONE PF INJ (CANCER C 10 MG in NS (IVPB) CANCER CENTER 50 ML INJ ONE; +ETOPOSIDE IV SCH; +FLUC100T6 PO; +FOSAPREPITANT 150 MG/NS 150 MG IVPB (CANCER CTR) IV PRN; +IOHEXOL 350 MG/ML 100 ML (OMNIPAQUE 350) VIAL IV ONE; +NIAC1CAP12 PO; +NORMAL SALINE IV SCH; +NS 100 ML (IVPB) BAG IV ONE; +NS IV 1000 ML (CANCER CTR) 1,000 ML ONE; +NS IV 1000 ML (CANCER CTR) IV SCH; +NS IV 500 ML (CANCER CENTER) 500 ML ONE; +ONDA8TAB6 PO; +ONDANSETRON 16 MG, DEXAMETHASONE 10 MG/NS 50 ML IVPB IV SCH; +OXYC10TA55 PO; +OXYC5TAB71 PO; +PALONOSETRON 0.25 MG, DEXAMETHASONE 10 MG/NS 50 ML IVPB IV PRN; +PANT40TA2 PO; +POLY17PO6 PO; +PROC10TA PO; +ZOLP5TAB7 PO
[2017-05-09 13:49] LABS: BASOPHILS % (AUTO) 1 % (0-10); EOSINOPHILS # (AUTO) 0.1 10^3/uL (0.0-0.3); EOSINOPHILS % (AUTO) 1 % (0-10); LYMPHOCYTES # (AUTO) 0.4 X 10^3 (1.0-4.0); LYMPHOCYTES % (AUTO) 9 % (12-44); MEAN CORPUSCULAR HEMOGLOBIN 31 PG (25-34); MEAN CORPUSCULAR HGB CONC 34 G/DL (32-36); MEAN CORPUSCULAR VOLUME 91 FL (80-99); MEAN PLATELET VOLUME 9.8 FL (7.4-10.4); MONOCYTES % (AUTO) 23 % (0-12); NEUTROPHILS # (AUTO) 2.9 X 10^3 (1.8-7.8); NEUTROPHILS % (AUTO) 66 % (42-75); PLATELET COUNT 382 10^3/uL (130-400); RED CELL DISTRIBUTION WIDTH 17.8 % (10.0-14.5); WHITE BLOOD COUNT 4.4 10^3/uL (4.3-11.0)
[2017-05-09 14:20] LABS: CALCIUM 9.6 MG/DL (8.5-10.1); CREATININE SERUM 1.19 MG/DL (0.60-1.30); ICTERUS 2.2 (-100-1.9); POTASSIUM 3.9 MMOL/L (3.6-5.0)
== END 2017-06-14 | disposition home or self-care (01) ==
LOC: ONC 13:27
PROVIDERS: ATTEND Internal Medicine Hematology & Oncology
DX: Z51.0 Encounter for antineoplastic radiation therapy (principal); Z51.11 Encounter for antineoplastic chemotherapy; C7A.8 Other malignant neuroendocrine tumors; C79.51 Secondary malignant neoplasm of bone; Z85.21 Personal history of malignant neoplasm of larynx; E89.0 Postprocedural hypothyroidism; N18.3 Chronic kidney disease, stage 3 (moderate); Z79.899 Other long term (current) drug therapy
CPT/HCPCS: 36415; 36591; 77290; 77295; 77307; 77332; 77334; 77336; 77417; 77470; 80048; 80053; 83615; 83735; 84443; 85025; 96360; 96361; 96367; 96374; 96375; 96413; 96417; 99213; 99214